=== PATIENT | female | born 1940 | race Caucasian/White ===

== ENCOUNTER → 2022-02-25 13:50 | Outpatient (BNVA) | payer MEDICARE, SELFPAY | PROVIDERS: PCP Internal Medicine; Visit Provider Nurse Practitioner Family | DX: R29.898 Other symptoms and signs involving the musculoskeletal system (principal); S49.92XA Unspecified injury of left shoulder and upper arm, initial encounter | CPT/HCPCS: 99202 ==

== ENCOUNTER → 2022-05-03 11:41 | Outpatient (BNVA) | payer MEDICARE, SELFPAY | PROVIDERS: PCP Internal Medicine; Visit Provider Nurse Practitioner Family | DX: S49.92XD Unspecified injury of left shoulder and upper arm, subsequent encounter (principal); R29.898 Other symptoms and signs involving the musculoskeletal system | CPT/HCPCS: 99212 ==

== ENCOUNTER 2022-05-11 11:00 | Outpatient (RCR) | payer MEDICARE, SELFPAY ==
--- NOTE | 2022-05-11 11:51 | MHC.OT.DC ---
[address] [phone] F: [phone] Occupational Therapy Discharge Note Provider: Petra Mast Diagnosis: Brachial Plexus Injury, RTC Injury Date of Evaluation: 04/20/22 Date of Discharge: 05/11/22 Treatments to Date: 4 Discharge Status: Independent with HEP Discharge Summary: Olya was evaluationed for OT services s/p fall w/ brachial plexus and rotator cuff injury to left arm. She has had very limited return since injury this past Spring and cont's to have absent sensation in left arm (digits to mid upper-arm) and flaccidity of muscles distal to shoulder. We have fabriucated restin wrist orthosis for joint protection and she has good carry over w/ wear. BONDED STRAND OPERATOR assists 5 days a week w/ ranging arm at home. She is still very limited MP flex in digits and shoulder ext rot, flex and abd. Cont'd pain in axilla region and anterior shoulder. Less tenderness and trigger points noted in upper back. She has good awareness of dayana-dressing techniques and good support system at home, at this time we will discharge from OT services and she will cont w/ PT. Electronically Signed By: Lyiah Perez OTR/Megha CHT Reviewed/agree with student documentation: Therapist: Please Sign and return to therapist, thank you for your referral.
== END 2022-05-11 11:52 | disposition home or self-care (01) ==
LOC: HO.OT 11:00
PROVIDERS: PCP Internal Medicine; Visit Provider Nurse Practitioner Family
DX: R29.898 Other symptoms and signs involving the musculoskeletal system (principal); S49.92XA Unspecified injury of left shoulder and upper arm, initial encounter
CPT/HCPCS: 29125; 97110; 97140; 97167; 97760

== ENCOUNTER 2022-06-17 11:20 | Outpatient (REF) | payer MEDICARE, SELFPAY ==
--- NOTE | 2022-06-17 09:30 | EMG_ITS ---
Left median and ulnar motor and sensory studies were performed. Left radial sensory study was performed. Left medial and lateral antecubital brachial sensory studies were performed, and for comparison, right ulnar motor study was performed. Needle examination was performed of the paraspinal and limb muscles. IMPRESSION: This study was suggestive of severe left brachial plexopathy. upper extremity, which is better explained based upon brachial plexopathy. Etiology of the lesion is unclear in both. MD CAROLINA Joaquin/MERLYN / [id number]
== END 2022-06-17 11:21 | disposition home or self-care (01) ==
LOC: HO.NEURO 11:20
PROVIDERS: Visit Provider Nurse Practitioner Family
DX: R29.898 Other symptoms and signs involving the musculoskeletal system (principal)
CPT/HCPCS: 95886; 95909

== ENCOUNTER 2022-07-21 11:00 | Outpatient (RCR) | payer MEDICARE, SELFPAY ==
--- NOTE | 2022-04-05 17:29 | MHC.PT.EP ---
[facility] [place] Office [place] Office [place] Office [address] Renee Wells [address] [phone] F: [phone] F: [phone] F: [phone] F: [phone] Physical Therapy Plan of Care Date of Evaluation: Date of Surgery: Diagnosis: Unspecifiied injury of L shoulder and upper arm (MD note includes Profound L UE weakness, pain ? L brachial plexus injury s/p h/o fall with L shoulder injury and rehab in 10/2021. Assessment: Patient is 81 y.o female who comes with daughter since she is poor historian and daughter reports cognitive impairments. She has very complex medical history and causation of L UE pain and limitations is still unknown, neurologist report includes Left arm weakness: s/p fall w/ a long lie period, rhabdomyolysis. With MRI (10/30): complete teres major tear, high-grade injury/partial tear of long head of triceps tendon, partial tear of latissimus dorsi, supraspinatus and infraspinatus tendinopathy, extensive muscular edema throughout deltoid and rotator cuff musculature. She is in need of repeat nerve conduction study to determine location of injury as it is questional for brachial plexus. She has no motor or sensory from below deltoid and muscle atrophy. She is able to tolerate passive stretching of shoulder, adhesive capsulitis present due to increased time of immobiliy of the shoulder. Patient and daughter are educated on passive stretching of shoulder to maintain what is left in shoulder and to make possible PROM gains. Recommend OT for splinting of hand to prevent contracture. Recommend PT 1-2x/week for manual therapy to shoulder, HEP to include PROM by family or caregiver. Frequency and Duration: The patient will be seen 1-2x/week for 4 weeks Short Term Goals: Only oysterman goals established due to complexity and severity of symptoms. Systems Planner Goals: 4 weeks Patient family is able to demonstrate ability to passively stretch patient L UE joints to prevent contractures. Patient is able to demonstrate HEP to preserve function of muscles in shoulder girdle. Patient is able to tolerate increased PROM stretching in L shoulder flexion 120 degrees to be able to allow easier don/doffing clothes. Treatment Plan: Modalities to reduce pain, spasms and effusion. Manual therapy to restore motion and function. Therapeutic exercise to improve strength and flexibility. Neuromuscular re-education for posture and balance. Therapeutic activities to return to functional activities of daily living. Electronically signed by: Roopa Kang PT, DPT Please sign and return to therapist. Thank you for your referral.
--- NOTE | 2022-07-21 13:29 | MHC.PT.DC ---
[facility] [place] Office [place] Office [place] Office [address] Renee Wells [address] [phone] F: [phone] F: [phone] F: [phone] F: [phone] Physical Therapy Discharge Report Diagnosis: Unspecifiied injury of L shoulder and upper arm (MD note includes Profound L UE weakness, pain ? L brachial plexus injury s/p h/o fall with L shoulder injury and rehab in 10/2021. Date of Surgery: DOI (10/2021) Date of Evaluation: 04/05/22 Date of Discharge: Treatments to Date: 20 Cancellations to Date: No Shows to Date: Discharge Status: Improved Function Independent with HEP Discharge Summary: Olya has made improvements in L shoulder PROM and can utilize R UE to help with AAROM of L shoulder to make it more functional for her with assist to bathe and get dressed. She does have INSULATOR APPRENTICE come in in the evening to help, who also does stretch her L UE. I spoke with pt and pt's son about discontinuing PT at this time. I feel she has plateaued and no further skilled PT is required as she can manage the progress she has made at home. Printed hand out was given to them outlining her AAROM exercises to do herself as well as instruction to get out of sling and perform deep breathing for L rib/chest expansion. And in handout shows PROM of L hand and shoulder. Discussed safety as well in winter weather with attending outpatient as they have expressed concern about this before, that checking back in in the spring for OP PT may be a safer option or discuss home PT with PCP for winter time. They agree to this plan. Electronically signed by: Roopa Kang, PT, DPT Please sign and return to therapist. Thank you for your referral.
== END 2022-07-21 13:30 | disposition home or self-care (01) ==
LOC: HO.PT 11:00
PROVIDERS: PCP Internal Medicine; Visit Provider Nurse Practitioner Family
DX: R29.898 Other symptoms and signs involving the musculoskeletal system (principal); S49.92XA Unspecified injury of left shoulder and upper arm, initial encounter
CPT/HCPCS: 97110; 97140; 97163; 97530

== ENCOUNTER → 2022-07-29 08:55 | Outpatient (BNVA) | payer MEDICARE, SELFPAY | PROVIDERS: PCP Internal Medicine; Visit Provider Nurse Practitioner Family | DX: S14.3XXD Injury of brachial plexus, subsequent encounter (principal); S49.92XD Unspecified injury of left shoulder and upper arm, subsequent encounter; R29.898 Other symptoms and signs involving the musculoskeletal system; F03.90 Unspecified dementia, unspecified severity, without behavioral disturbance, psychotic disturbance, mood disturbance, and anxiety | CPT/HCPCS: 99212 ==

== ENCOUNTER 2023-02-02 12:59 | Outpatient (AMB) | payer MEDICARE, SELFPAY ==
[2023-02-02 13:01] VITALS: PULSE 55; O2SAT 93; BMI 21.6
--- NOTE | 2023-02-02 13:01 | A.OFFVIS_ITS ---
Intake Vital Signs 02/02/23 13:01 Height 5 ft 2 in Weight 118 lb 6 oz BMI 21.6 Position Sitting Pulse 55 Pulse Source Pulse Oximeter Pulse Oximetry (%) 93 Oxygen Delivery Method Nasal Cannula Oxygen Flow Rate 1 Intake Visit Reasons: follow up- [facility] Intake Note: Pt presents as a f/u. no change, we need to find out about therapy or whatever she is going to do. Therapy didn't work. Lane Attendant Required: No Allergies No Known Allergies Allergy (Verified 02/02/23 13:05) Medication List - Last Reconciled 02/02/23 by CINTHYA Gresham albuterol sulfate mg inhalation albuterol sulfate 90 mcg/actuation 0 mcg inhalation atorvastatin 10 mg PO DAILY denosumab (Prolia) mg subcut diclofenac sodium 3% 1 appl topical BID 90 days fluticasone propion-salmeterol 250-50 mcg/dose (Wixela Inhub) 1 ea inhalation BID fluticasone propion-salmeterol 500-50 mcg/dose (Wixela Inhub) 1 ea inhalation BID isosorbide mononitrate ER 15 mg PO DAILY lidocaine 5% 1 appl topical QID PRN 90 days tiotropium bromide 2.5 mcg/actuation (Spiriva Respimat) 2 puffs inhalation DAILY HPI HPI Comments History of Present Illness Details 82-yr-old female presents for f/u visit, accompanied by her dtr. Pt denies any significant interval medical changes. Pt and dtr reports pt has had no improvement in LUE weakness, pain, and sensation. Pt continues to wear the left arm brace and compression sleeve- however LUE swelling has resolved. Pt feels better when wearing the sleeve. Dtr mentions taht the wrist splint Pt states the hand is always cold. She has more difficulty moving the left shoulder and elbow. The fingers are starting to stay bent. Pt was discharged from therapy. Dtr helps the patient do the exercises- but this is limited. They did try the Diclofenac 3% and lidocaine- but this did not help. Tylenol 1000mg TID takes the edge off. Dtr is interested in finding a natural tx option- such as CBD cream. [facility] Medical History Adrenal adenoma Aortic valve stenosis Bursitis of hip COPD (chronic obstructive pulmonary disease) Coronary atherosclerosis HTN (hypertension) Low back pain On home oxygen therapy Osteoporosis Prediabetes Pulmonary emphysema Rectocele Spinal stenosis Vaginal wall prolapse Surgical History H/O mastectomy H/O: hysterectomy Family History Mother Breast cancer Social History (Updated 02/02/23 @ 13:07 by Alison Pool CMA) Alcohol intake: current Alcohol intake frequency: holidays/special occasions only Patient Tobacco Use Status: Former Tobacco user Review of Systems Const All systems reviewed & are unremarkable except as noted in HPI and below Physical Exam Vital Signs: Last Vital Signs Pulse 55 02/02/23 13:01 Pulse Ox 93 02/02/23 13:01 Oxygen Delivery Method Nasal Cannula 02/02/23 13:01 Oxygen Flow Rate 1 02/02/23 13:01 BMI result Body Mass Index 21.6 Const General: cooperative and no acute distress HEENT Head: Yes normocephalic Resp Effort & Inspection: normal respiratory effort and able to speak in complete sentences Neuro Other: A&O, responds appropriately w/ some STM lapses Marked decreased left shoulder ROM. Left elbow- unable to fully extend, pt feel most comfortable with left elbow at 90degrees Left fingers mid-flexion LUE ROM limited by pt discomfort LUE- marked weakness, cool to the touch, loss of sensation Slow to stand, unsteady gait at times. General: CN's II-XI intact bilaterally Psych Appearance: grossly normal Mental Status: mental status grossly normal Speech and movement: Normal speech and movement present Affect: normal affect Attitude: cooperative Thought process: Normal thought process present Thought content: Normal thought content present Insight: Good insight present (Psych) Judgement: Good judgement present (Psych) Assessment & Plan Assessment & Plan (1) Left arm weakness: Comment: s/p fall w/ a long lie period, rhabdomyolysis Code(s): R29.898 - Other symptoms and signs involving the musculoskeletal system (2) Injury of left shoulder: Comment: MRI (10/30): complete teres major tear, high-grade injury/partial tear of long head of triceps tendon, partial tear of latissimus dorsi, supraspinatus and infraspinatus tendinopathy, extensive muscular edema throughout deltoid and rotator cuff musculature. Code(s): S49.92XA - Unspecified injury of left shoulder and upper arm, initial encounter (3) Brachial plexus injury, left: Code(s): S14.3XXA - Injury of brachial plexus, initial encounter Plan Discussed that pt's LUE pain level may be impeding her ability to fully do her PT/OT exercises. May continue Tylenol 1000mg tid prn. Offered to trial oral analgesic- TCA, tramadol- pt/dtr decline at this time d/t concern for worsening dementia s/s. They may try an OTC natural topical analgesic- such as a capsaicin oint or even the CBD cream. Dtr wondering if pt needs to continue to wear LUE compression sleeve- the LUE swelling has resolved however this makes pt feel better- she may continue to use. Will request pt have f/u w/ [facility]- ? if pt's worsening LUE ROM, contracture would be amendable to injection tx's. Consider referral back to PT/OT after ortho eval. f/u in 4 months or sooner prn Orders: Referrals Orthopedics Referral R29.898 - Other symptoms and signs involving the musculoskeletal system, S14.3XXA - Injury of brachial plexus, initial encounter, S49.92XA - Unspecified injury of left shoulder and upper arm, initial encounter Coding Level of Care Code Est Pt Level 4 (75554) Diagnoses Left arm weakness R29.898 Injury of left shoulder S49.92XA Brachial plexus injury, left S14.3XXA
== END 2023-02-02 13:54 | disposition home or self-care (01) ==
PROVIDERS: Visit Provider Nurse Practitioner Family
DX: R29.898 Other symptoms and signs involving the musculoskeletal system (principal); S49.92XA Unspecified injury of left shoulder and upper arm, initial encounter; S14.3XXA Injury of brachial plexus, initial encounter
CPT/HCPCS: 99214

== ENCOUNTER → 2023-02-02 12:59 | Outpatient (BNVA) | payer MEDICARE, SELFPAY | PROVIDERS: Visit Provider Nurse Practitioner Family | DX: R29.898 Other symptoms and signs involving the musculoskeletal system (principal); S49.92XD Unspecified injury of left shoulder and upper arm, subsequent encounter; S14.3XXD Injury of brachial plexus, subsequent encounter | CPT/HCPCS: 99212 ==

== ENCOUNTER 2023-06-08 11:06 | Outpatient (AMB) | payer MEDICARE, SELFPAY ==
--- NOTE | 2023-06-08 11:10 | A.OFFVIS_ITS ---
Intake Vital Signs 06/08/23 11:28 Height 5 ft 2 in Weight 113 lb BMI 20.7 BP 110/72 Blood Pressure Location Rt brachial Position Sitting Respiration 16 Pulse 69 Pulse Source Pulse Oximeter Pulse Oximetry (%) 90 L Oxygen Delivery Method Nasal Cannula Intake Visit Reasons: 4 f/u [facility] - LVM Intake Note: Pt presents to the office for 4 month follow up. Pt is here with her daughter, Jodee. They report no changes to symptoms since last visit. Copy Writer Required: No Allergies No Known Allergies Allergy (Verified 02/02/23 13:05) Medication List - Last Reconciled 06/08/23 by CINTHYA Gresham albuterol sulfate mg inhalation albuterol sulfate 90 mcg/actuation 0 mcg inhalation atorvastatin 10 mg PO DAILY cholecalciferol (vitamin D3) (Dialyvite Vitamin D) 125 mcg PO DAILY denosumab (Prolia) mg subcut fluticasone propion-salmeterol 250-50 mcg/dose (Wixela Inhub) 1 ea inhalation BID isosorbide mononitrate ER 15 mg PO DAILY multivitamin 1 tab PO DAILY tiotropium bromide 2.5 mcg/actuation (Spiriva Respimat) 2 puffs inhalation DAILY HPI HPI Comments History of Present Illness Details 82-yr-old female presents for f/u visit, accompanied by her dtr Pt denies any significant interval medical changes, other than a mild cold a few wks ago. Pt continues to have profound LUE weakness and numbness. She has seen [facility]- was note thought to be a surgical candidate. She was referred to PT/OT which has been helpful- pt is doing the exercises at home as well. She does still have LUE discomfort- uses Tylenol prn w/ some effect. Also CBD cream- helps some. They are wary to try anything that would cause sedation ro cognitive s/s. Memory is stable- dtr is giving her Dahiana tincture which she feels is helping. [facility] Medical History Adrenal adenoma Aortic valve stenosis Bursitis of hip COPD (chronic obstructive pulmonary disease) Coronary atherosclerosis HTN (hypertension) Low back pain On home oxygen therapy Osteoporosis Prediabetes Pulmonary emphysema Rectocele Spinal stenosis Vaginal wall prolapse Surgical History H/O: hysterectomy H/O mastectomy Family History Mother Breast cancer Social History Alcohol intake: current Alcohol intake frequency: holidays/special occasions only Patient Tobacco Use Status: Former Tobacco user Review of Systems Const All systems reviewed & are unremarkable except as noted in HPI and below Physical Exam Vital Signs: Last Vital Signs Pulse 69 06/08/23 11:28 Resp 16 06/08/23 11:28 BP 110/72 06/08/23 11:28 Pulse Ox 90 L 06/08/23 11:28 Oxygen Delivery Method Nasal Cannula 06/08/23 11:28 BMI result Body Mass Index 20.7 Const General: cooperative and no acute distress HEENT Head: Yes normocephalic Resp Effort & Inspection: normal respiratory effort and able to speak in complete sentences Neuro Other: A&O, responds appropriately Marked decreased left shoulder ROM. Left fingers mid-flexion contractions LUE ROM limited by pt discomfort LUE- marked weakness, cool to the touch, loss of sensation Slow to stand, steadier gait today General: CN's II-XI intact bilaterally Psych Appearance: grossly normal Affect: normal affect Attitude: cooperative Thought process: Normal thought process present Assessment & Plan Assessment & Plan (1) Brachial plexus injury, left: Code(s): S14.3XXA - Injury of brachial plexus, initial encounter (2) Left arm weakness: Comment: s/p fall w/ a long lie period, rhabdomyolysis Code(s): R29.898 - Other symptoms and signs involving the musculoskeletal system (3) Injury of left shoulder: Comment: MRI (10/30): complete teres major tear, high-grade injury/partial tear of long head of triceps tendon, partial tear of latissimus dorsi, supraspinatus and infraspinatus tendinopathy, extensive muscular edema throughout deltoid and rotator cuff musculature. Code(s): S49.92XA - Unspecified injury of left shoulder and upper arm, initial encounter (4) Dementia: Code(s): F03.90 - Unspecified dementia, unspecified severity, without behavioral disturbance, psychotic disturbance, mood disturbance, and anxiety Plan Trial Alpha-lipoic acid 600mg qd May continue Tylenol 1000mg tid prn. May continue the CBD cream. Continue PT/OT exercises. F/u w/ [facility] as scheduled. Dtr is wondering about hand surgeon consult- I'm not sure there would be any benefit at this point, dtr will talk w/ PCP. f/u in 4 months or sooner prn Medications: New alpha lipoic acid 600 mg PO DAILY 90 days 90 caps 1RF S14.3XXA - Injury of brachial plexus, initial encounter Coding Level of Care Code Est Pt Level 3 (81854) Diagnoses Brachial plexus injury, left S14.3XXA Left arm weakness R29.898 Injury of left shoulder S49.92XA Dementia F03.90
[2023-06-08 11:28] VITALS: BP 110/72; PULSE 69; RESP 16; O2SAT 90; BMI 20.7
== END 2023-06-08 12:08 | disposition home or self-care (01) ==
PROVIDERS: PCP Internal Medicine; Visit Provider Nurse Practitioner Family
DX: S14.3XXA Injury of brachial plexus, initial encounter (principal); R29.898 Other symptoms and signs involving the musculoskeletal system; S49.92XA Unspecified injury of left shoulder and upper arm, initial encounter; F03.90 Unspecified dementia, unspecified severity, without behavioral disturbance, psychotic disturbance, mood disturbance, and anxiety
CPT/HCPCS: 99213

== ENCOUNTER → 2023-06-08 11:06 | Outpatient (BNVA) | payer MEDICARE, SELFPAY | PROVIDERS: PCP Internal Medicine; Visit Provider Nurse Practitioner Family | DX: S14.3XXD Injury of brachial plexus, subsequent encounter (principal); S49.92XD Unspecified injury of left shoulder and upper arm, subsequent encounter; R29.898 Other symptoms and signs involving the musculoskeletal system; F03.90 Unspecified dementia, unspecified severity, without behavioral disturbance, psychotic disturbance, mood disturbance, and anxiety | CPT/HCPCS: 99212 ==

== ENCOUNTER 2023-11-28 13:14 | Outpatient (AMB) | payer MEDICARE, SELFPAY ==
--- NOTE | 2023-11-28 13:20 | A.OFFVIS_ITS ---
Vital Signs 11/28/23 13:23 Height 5 ft 1 in Weight 118 lb BMI 22.3 Pulse 65 Pulse Source Pulse Oximeter Pulse Oximetry (%) 94 Oxygen Delivery Method Room Air Comment 4 Liters Oxygen([employer]) Intake Visit Reasons: Pulmonary Nodules Fan Mail Clerk Required: No Allergies No Known Allergies Allergy (Verified 11/28/23 13:20) HPI Comments Details: The patient is here for pulmonary evaluation. The patient is an 83 year woman with a known history of advanced emphysema COPD and chronic respiratory failure. She does get oxygen from [employer]. She does have a portable oxygen concentrator that she uses the 4 L pulse with activity. She also sleeps with the oxygen at home at 4 L. the family is wondering if she is using too much oxygen. Will plan to do an overnight oximetry to assess that. In addition to that she does use Wixela and Spiriva with good effect. She still has a cough chest congestion. She has not interested in any additional medications at this time. Because of the chronic bronchitis component I do believe that a Acapella valve will be helpful for chest PT. I did instruct her how to use it and will request 1 from a [employer] company, [employer]. The patient also has multiple pulmonary nodules. She has been followed mostly by a grocery caddy in the area for many years. She has had CT scans every 6 months. Some of the nodules have been increasing in size. Back in June 2023 she had a PET scan at [facility] and then subsequently repeat CT scan at the [facility]. I did personally review the CT scan. Appears that some of the nodules are spiculated appearance and some of them are larger in size measuring little more than a cm in size. Although she does have extensive emphysema and she does require significant oxygen so therefore any kind of biopsy for the patient will be very high risk and may not be worthwhile. We did talk about following the nodules closely and we can also consider stereotactic radiation if needed. But even that will be difficult. The patient also has a very limited movement of her left shoulder because of a torn rotator coughing that also limits and positioning for any kind of procedures. Apparently she did try to get a biopsy of the pulmonary nodules in the past but she could not position herself because of significant pain from the left shoulder. [facility] Medical History (Updated 11/28/23 @ 22:44 by Turner Hartman MD) Chronic respiratory failure Pulmonary nodules Vaginal wall prolapse Spinal stenosis Rectocele Pulmonary emphysema Prediabetes Osteoporosis On home oxygen therapy Low back pain HTN (hypertension) Coronary atherosclerosis COPD (chronic obstructive pulmonary disease) Bursitis of hip Aortic valve stenosis Adrenal adenoma Surgical History H/O: hysterectomy H/O mastectomy Family History Mother Breast cancer Social History Alcohol intake: current Alcohol intake frequency: holidays/special occasions only Patient Tobacco Use Status: Former Tobacco user Review of Systems Const Denies fever(s) ENT Reports nasal congestion Card Denies chest pain and Reports dyspnea on exertion Resp Reports chest congestion, Reports cough, Reports dyspnea on exertion and Reports wheezing GI Reports no additional complaints Musc Reports myalgias, Reports arthralgias, Reports joint swelling, Reports limited range of motion and Reports muscle weakness Skin/Breast Denies rash Aller/Immun Reports wheezing Physical Exam Vital Signs: Last Vital Signs Pulse 65 11/28/23 13:23 Pulse Ox 94 11/28/23 13:23 Oxygen Delivery Method Room Air 11/28/23 13:23 BMI result Body Mass Index 22.3 Const General: comfortable and alert Nutritional Appearance: thin HEENT Head: Yes normocephalic Neck Neck: Yes supple Chest Chest palpation & inspection: normal inspection of the chest Resp Effort & Inspection: normal respiratory effort and prolonged expiratory phase Auscultation: diminished lung sounds Cardio Heart sounds: S1 normal heart sound present, S2 normal heart sound present and Murmur heart sound present GI Palpation (GI): Soft to palpation Skin General skin exam: no rashes or lesions noted Extrem General: Yes no clubbing, cyanosis or edema Results Reviewed Results Reviewed: personally reviewed Ct chest 09/2023 with multiple pulmonary nodules. Some appear to be irregular and spiculated Assessment & Plan Assessment & Plan (1) COPD (chronic obstructive pulmonary disease): Code(s): J44.9 - Chronic obstructive pulmonary disease, unspecified Category: Medical Qualifiers: COPD type: emphysema Emphysema type: centrilobular Qualified Code(s): J43.2 - Centrilobular emphysema (2) Pulmonary nodules: Code(s): R91.8 - Other nonspecific abnormal finding of lung field Category: Medical (3) Chronic respiratory failure: Code(s): J96.10 - Chronic respiratory failure, unspecified whether with hypoxia or hypercapnia Category: Medical Qualifiers: Respiratory failure complication: hypoxia Qualified Code(s): J96.11 - Chronic respiratory failure with hypoxia Plan continue Wixela continue Spiriva ROSA MARIA as needed conitnue oxygen supplementation: 2L/pulse at rest, 4L/pulse with activity, 4L/min with sleep Overnight oximetry on 4L repeat CT chest in March 2024 Does have advanced emphysema and would not recommend any invasive or semiinvasive diagnostic interventions for these nodules. We will discuss max cheema in the Fall after her repeat CT chest. Orders: Orders CT chest wo IV con 03/27/24 R91.8 - Other nonspecific abnormal finding of lung field Coding Level of Care Code New Pt Level 5 (26029) Diagnoses Centrilobular emphysema J43.2 COPD type: emphysema Emphysema type: centrilobular Pulmonary nodules R91.8 Chronic respiratory failure with hypoxia J96.11 Respiratory failure complication: hypoxia Time Spent (min) 60
[2023-11-28 13:23] VITALS: PULSE 65; O2SAT 94; BMI 22.3
== END 2023-11-28 13:53 | disposition home or self-care (01) ==
PROVIDERS: PCP Nurse Practitioner Gerontology; Referring Provider Internal Medicine; Visit Provider Hospitalist
DX: J43.2 Centrilobular emphysema (principal); R91.8 Other nonspecific abnormal finding of lung field; J96.11 Chronic respiratory failure with hypoxia
CPT/HCPCS: 99205

== ENCOUNTER → 2023-11-28 13:14 | Outpatient (BNVA) | payer MEDICARE, SELFPAY | PROVIDERS: PCP Nurse Practitioner Gerontology; Referring Provider Internal Medicine; Visit Provider Hospitalist | DX: J43.2 Centrilobular emphysema (principal); J96.11 Chronic respiratory failure with hypoxia; R91.8 Other nonspecific abnormal finding of lung field | CPT/HCPCS: 99202 ==

== ENCOUNTER 2024-02-15 11:16 | Outpatient (AMB) | payer MEDICARE, SELFPAY ==
--- NOTE | 2024-02-15 11:30 | A.OFFVIS_ITS ---
Vital Signs 02/15/24 11:31 Height 5 ft 1 in Weight 118 lb BMI 22.3 Pulse 70 Pulse Source Pulse Oximeter Pulse Oximetry (%) 86 L Intake Visit Reasons: 4 mnts f/u [place]-LVM Intake Note: Patient presents for 4 month muscoskeletal. patient has had no changes since last visit. Allergies No Known Allergies Allergy (Verified 02/15/24 11:36) Medication List - Last Reconciled 02/15/24 by CINTHYA Gresham albuterol sulfate mg inhalation albuterol sulfate 90 mcg/actuation 2 inhalations inhalation Q6H PRN 90 days atorvastatin 10 mg PO DAILY cholecalciferol (vitamin D3) (Dialyvite Vitamin D) 125 mcg PO DAILY denosumab (Prolia) mg subcut fluticasone propion-salmeterol 250-50 mcg/dose (Wixela Inhub) 1 ea inhalation Q12H 90 days isosorbide mononitrate ER 15 mg PO DAILY multivitamin 1 tab PO DAILY nebulizers As directed Oxygen Home Use As directed tiotropium bromide 2.5 mcg/actuation (Spiriva Respimat) 2 puffs inhalation DAILY HPI Comments Details: 83-yr-old female presents for f/u visit for LUE weakness/neuralgia s/p fall w/ long lie period in October 2021. Pt is accompanied by her dtr. Pt denies any significant interval medical changes. Pt states she continues to have LUE weakness- there has been no improvement in strength. They state ortho did not have any surgical options to offer. She continues to have LUE neuralgic pain. States Tylenol takes the edge off. They have tried a number of OTC topical tx's, lidocaine, CBD, etc- none of which has helped. They are still hesitant to re-try prescription oral medication d/t risk for worsening pt's cognition. Pt is still forgetful. 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 [facility] Medical History (Updated 11/28/23 @ 22:44 by Turner Hartman MD) Chronic respiratory failure Pulmonary nodules Vaginal wall prolapse Spinal stenosis Rectocele Pulmonary emphysema Prediabetes Osteoporosis On home oxygen therapy Low back pain HTN (hypertension) Coronary atherosclerosis COPD (chronic obstructive pulmonary disease) Bursitis of hip Aortic valve stenosis Adrenal adenoma Surgical History H/O: hysterectomy H/O mastectomy Family History Mother Breast cancer Social History Alcohol intake: current Alcohol intake frequency: holidays/special occasions only Patient Tobacco Use Status: Former Tobacco user Physical Exam Vital Signs: Last Vital Signs Pulse 70 02/15/24 11:31 Pulse Ox 86 L 02/15/24 11:31 BMI result Body Mass Index 22.3 Const General: cooperative and no acute distress Resp Effort & Inspection: normal respiratory effort and able to speak in complete sentences Neuro Other: A&O w/ mild STM lapses Profound LUE weakness. Sitting upright in w/c. Cranial nerves: Yes CN's II-XII intact bilaterally Psych Appearance: grossly normal Affect: normal affect Assessment & Plan Assessment & Plan (1) Left arm weakness: Comment: s/p fall w/ a long lie period, rhabdomyolysis Code(s): R29.898 - Other symptoms and signs involving the musculoskeletal system Category: Medical (2) Injury of left shoulder: Comment: MRI (10/30): complete teres major tear, high-grade injury/partial tear of long head of triceps tendon, partial tear of latissimus dorsi, supraspinatus and infraspinatus tendinopathy, extensive muscular edema throughout deltoid and rotator cuff musculature. Code(s): S49.92XA - Unspecified injury of left shoulder and upper arm, initial encounter Category: Medical (3) Brachial plexus injury, left: Code(s): S14.3XXA - Injury of brachial plexus, initial encounter Category: Medical Plan Continue prn Tylenol. May try to adjunct w/ OTC Ibuprofen 400mg q 4-6 hrs or Naproxen 440mg q 12 hrs. Will request pain management 's input- ? if pt would benefit from nerve block or alternate pain modality tx. f/u in 6 months or sooner prn. Orders: Referrals Pain Management Referral R29.898 - Other symptoms and signs involving the musculoskeletal system, S14.3XXA - Injury of brachial plexus, initial encounter, S49.92XA - Unspecified injury of left shoulder and upper arm, initial encounter Coding Level of Care Code Est Pt Level 3 (63608) Diagnoses Left arm weakness R29.898 Injury of left shoulder S49.92XA Brachial plexus injury, left S14.3XXA
[2024-02-15 11:31] VITALS: PULSE 70; O2SAT 86; BMI 22.3
== END 2024-02-15 12:20 | disposition home or self-care (01) ==
PROVIDERS: PCP Internal Medicine; Visit Provider Nurse Practitioner Family
DX: R29.898 Other symptoms and signs involving the musculoskeletal system (principal); S49.92XA Unspecified injury of left shoulder and upper arm, initial encounter; S14.3XXA Injury of brachial plexus, initial encounter
CPT/HCPCS: 99213

== ENCOUNTER → 2024-02-15 11:16 | Outpatient (BNVA) | payer MEDICARE, SELFPAY | PROVIDERS: PCP Internal Medicine; Visit Provider Nurse Practitioner Family | DX: S49.92XD Unspecified injury of left shoulder and upper arm, subsequent encounter (principal); S14.3XXD Injury of brachial plexus, subsequent encounter; R29.898 Other symptoms and signs involving the musculoskeletal system | CPT/HCPCS: 99212 ==

== ENCOUNTER 2024-05-07 11:04 | Outpatient (AMB) | payer MEDICARE, SELFPAY ==
--- NOTE | 2024-05-07 11:26 | A.OFFVIS_ITS ---
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 She does get oxygen from [employer]. She does have a portable oxygen concentrator that she uses the 4 L pulse with activity. She also sleeps with the oxygen at home at 4 L. the family is wondering if she is using too much oxygen. Will plan to do an overnight oximetry to assess that. In addition to that she does use Wixela and Spiriva with good effect. She still has a cough chest congestion. She has not interested in any additional medications at this time. Because of the chronic bronchitis component I do believe that a Acapella valve will be helpful for chest PT. I did instruct her how to use it and will request 1 from a [employer], [employer]. The patient also has multiple pulmonary nodules. She has been followed mostly by a drill press operator numerical control in the area for many years. She has had CT scans every 6 months. Some of the nodules have been increasing in size. Back in June 2023 she had a PET scan at [facility] and then subsequently repeat CT scan at the [facility]. I did personally review the CT scan. Appears that some of the nodules are spiculated appearance and some of them are larger in size measuring little more than a cm in size. Although she does have extensive emphysema and she does require significant oxygen so therefore any kind of biopsy for the patient will be very high risk and may not be worthwhile. We did talk about following the nodules closely and we can also consider stereotactic radiation if needed. But even that will be difficult. The patient also has a very limited movement of her left shoulder because of a torn rotator coughing that also limits and positioning for any kind of procedures. Apparently she did try to get a biopsy of the pulmonary nodules in the past but she could not position herself because of significant pain from the left shoulder. 05/07/2024 the patient is here for a pulmonary follow-up visit. The patient overall has been doing better. She does complain of a cough productive in nature with yellow sputum. She has been noticing this for the last few weeks. She does not feel sick like she has not had any fevers. Although the daughter has noticed that his energy level has been a little lower. She continues with the inhalers as prescribed. She did get the Acapella valve and she is using it several times a day and that is helping with the expectorations. We did follow- up with a CT scan of the chest that she had at [facility] demonstrating interval worsening of airspace disease in the right upper lobe right middle lobe and right lower lobe area appears to be more consistent with infection. In addition to that she has other pulmonary nodules that are being followed. His hard to know if this airspace disease is related to malignant process or if it is infectious. I do believe it is more infectious at this time. The patient is with her daughter they are concerned about unnecessary antibiotics. I did recommend a course of doxycycline. While we were able to do is get a sputum culture and I will send to the laboratory right now. Hopefully we can get a speciation of an organism. If we can at least identify an organism within joy ated more effectively. If she worsens then she will call and we can place her on empiric antibiotics specially if the sputum is not helpful. Will plan to repeat an x-ray with the next visit in 3-4 months. [facility] Medical History (Updated 05/07/24 @ 11:54 by Turner Hartman MD) Bronchopneumonia Chronic respiratory failure Pulmonary nodules Vaginal wall prolapse Spinal stenosis Rectocele Pulmonary emphysema Prediabetes Osteoporosis On home oxygen therapy Low back pain HTN (hypertension) Coronary atherosclerosis COPD (chronic obstructive pulmonary disease) Bursitis of hip Aortic valve stenosis Adrenal adenoma Surgical History H/O: hysterectomy H/O mastectomy Family History Mother Breast cancer Social History Alcohol intake: current Alcohol intake frequency: holidays/special occasions only Patient Tobacco Use Status: Former Tobacco user Review of Systems Const Denies fever(s) ENT Reports nasal congestion Card Denies chest pain and Reports dyspnea on exertion Resp Reports change in phlegm color, Reports chest congestion, Reports cough, Reports dyspnea on exertion and Reports wheezing GI Reports no additional complaints Musc Reports myalgias, Reports arthralgias, Reports joint swelling, Reports limited range of motion and Reports muscle weakness Skin/Breast Denies rash Aller/Immun Reports wheezing Physical Exam Vital Signs: Last Vital Signs Pulse 60 05/07/24 11:28 BP 110/60 05/07/24 11:28 Pulse Ox 91 L 05/07/24 11:28 Oxygen Delivery Method Room Air 05/07/24 11:28 BMI result Body Mass Index 22.3 Const General: comfortable and alert Nutritional Appearance: thin HEENT Head: Yes normocephalic Neck Neck: Yes supple Chest Chest palpation & inspection: normal inspection of the chest Resp Effort & Inspection: normal respiratory effort and Actively coughing Quality: productive Auscultation: diminished lung sounds Cardio Heart sounds: S1 normal heart sound present, S2 normal heart sound present and Murmur heart sound present GI Palpation (GI): Soft to palpation Skin General skin exam: no rashes or lesions noted Extrem General: Yes no clubbing, cyanosis or edema Assessment & Plan Assessment & Plan (1) COPD (chronic obstructive pulmonary disease): Code(s): J44.9 - Chronic obstructive pulmonary disease, unspecified Category: Medical Qualifiers: COPD type: emphysema Emphysema type: centrilobular Qualified Code(s): J43.2 - Centrilobular emphysema (2) Pulmonary nodules: Code(s): R91.8 - Other nonspecific abnormal finding of lung field Category: Medical (3) Chronic respiratory failure: Code(s): J96.10 - Chronic respiratory failure, unspecified whether with hypoxia or hypercapnia Category: Medical Qualifiers: Respiratory failure complication: hypoxia Qualified Code(s): J96.11 - Chronic respiratory failure with hypoxia (4) Bronchopneumonia: Code(s): J18.0 - Bronchopneumonia, unspecified organism Category: Medical Plan continue Wixela continue Spiriva ROSA MARIA as needed conitnue oxygen supplementation: 2L/pulse at rest, 4L/pulse with activity, 4L/min with sleep Overnight oximetry on 4L sputum culture CXR F/U 3-4 months Orders: Orders Sputum Cult + Gram stain Today J18.0 - Bronchopneumonia, unspecified organism Acid-fast Culture + Smear Today J18.0 - Bronchopneumonia, unspecified organism XR chest 2V Today J18.0 - Bronchopneumonia, unspecified organism Coding Level of Care Code Est Pt Level 4 (98260) Complex EM visit Add On G2211 Diagnoses Centrilobular emphysema J43.2 COPD type: emphysema Emphysema type: centrilobular Pulmonary nodules R91.8 Chronic respiratory failure with hypoxia J96.11 Respiratory failure complication: hypoxia Bronchopneumonia J18.0 Time Spent (min) 18
[2024-05-07 11:28] VITALS: BP 110/60; PULSE 60; O2SAT 91; BMI 22.3
== END 2024-05-07 11:55 | disposition home or self-care (01) ==
PROVIDERS: PCP Nurse Practitioner Gerontology; Visit Provider Hospitalist
DX: J43.2 Centrilobular emphysema (principal); R91.8 Other nonspecific abnormal finding of lung field; J96.11 Chronic respiratory failure with hypoxia; J18.0 Bronchopneumonia, unspecified organism
CPT/HCPCS: 99214; G2211

== ENCOUNTER 2024-05-07 11:04 | Outpatient (REF) | payer MEDICARE, SELFPAY | END 2024-05-07 11:05 | disposition home or self-care (01) | LOC: HO.LNP 11:04 | PROVIDERS: PCP Nurse Practitioner Gerontology; Visit Provider Hospitalist | DX: J18.0 Bronchopneumonia, unspecified organism (principal); J43.2 Centrilobular emphysema; J96.11 Chronic respiratory failure with hypoxia; R91.8 Other nonspecific abnormal finding of lung field; Z99.81 Dependence on supplemental oxygen | CPT/HCPCS: 87070; 87077; 87116; 87185; 87186; 87205; 87206; 99212 ==

== ENCOUNTER 2024-05-30 10:50 | Outpatient (REF) | payer MEDICARE, SELFPAY | END 2024-05-30 10:51 | disposition home or self-care (01) | LOC: HO.XRAY 10:50 | PROVIDERS: PCP Nurse Practitioner Gerontology; Visit Provider Hospitalist | DX: J18.0 Bronchopneumonia, unspecified organism (principal) | CPT/HCPCS: 71046 ==

== ENCOUNTER 2024-09-03 10:48 | Outpatient (AMB) | payer MEDICARE, SELFPAY ==
--- NOTE | 2024-09-03 10:49 | MHC.OFFVIS ---
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 Pt is accompanied by her dtr. PMH is notable for adrenal adenoma, aortic valve stenosis, HTN, CAD, COPD/emphysema/pulmonary nodules, O2 dependence, dementia, h/o breast and uterine cancer, osteoporosis, rectocele and vaginal wall prolapse. Pt denies any significant interval medical changes. Patient continues to have profound LUE weakness- there has been no improvement in strength. She continues to have LUE neuralgic pain from her shoulder through her hand. States the pain is constant. The pain is not worse in any particular part of the LUE. Daughter states the left hand finger contracture are better than before, as she and pt's PLATE EMBOSSER consistently help pt w/ hand ROM exercises. Continues to take Tylenol t.i.d. scheduled, which takes the edge off the pain. Patient has tried a number of OTC topical tx's, lidocaine, CBD, etc- none of which has helped. Patient and daughter are still hesitant to re-try prescription oral medication d/t risk for worsening pt's cognition. She previously had ortho follow-up, however daughter states they not have any surgical options to offer. Daughter states they never received a call to make the pain management appointment. Cognition is stable- prone to forgetfulness, needs assist with ADLs and IADLs. 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 [facility] Medical History (Updated 09/03/24 @ 12:42 by CINTHYA Gresham) Bronchopneumonia Chronic respiratory failure Pulmonary nodules Vaginal wall prolapse Spinal stenosis Rectocele Pulmonary emphysema Prediabetes Osteoporosis On home oxygen therapy Low back pain HTN (hypertension) Coronary atherosclerosis COPD (chronic obstructive pulmonary disease) Bursitis of hip Aortic valve stenosis Adrenal adenoma Surgical History H/O: hysterectomy H/O mastectomy Family History Mother Breast cancer Social History Alcohol intake: current Alcohol intake frequency: holidays/special occasions only Patient Tobacco Use Status: Former Tobacco user Physical Exam Vital Signs: Last Vital Signs Pulse 59 09/03/24 10:53 BP 100/70 09/03/24 10:53 Pulse Ox 90 L 09/03/24 10:53 Oxygen Delivery Method Room Air 09/03/24 10:53 Const General: cooperative and no acute distress Resp Effort & Inspection: normal respiratory effort and able to speak in complete sentences Neuro Other: A&O w/ mild STM lapses LUE supported in soft arm sling. Left 2nd-5th fingers with mild contraction- unable to actively fully extend fingers. Profound LUE weakness. LUE- absence of perception of light and sharp sensation. LUE CMS+. Sitting upright in w/c. Cranial nerves: Yes CN's II-XII intact bilaterally Psych Appearance: grossly normal Affect: normal affect Assessment & Plan Assessment & Plan (1) Left arm weakness: Comment: Secondary to left brachial plexus injury s/p fall w/ a long lie period, rhabdomyolysis Code(s): R29.898 - Other symptoms and signs involving the musculoskeletal system Category: Medical (2) Injury of left shoulder: Comment: MRI (10/30): complete teres major tear, high-grade injury/partial tear of long head of triceps tendon, partial tear of latissimus dorsi, supraspinatus and infraspinatus tendinopathy, extensive muscular edema throughout deltoid and rotator cuff musculature. Code(s): S49.92XA - Unspecified injury of left shoulder and upper arm, initial encounter Category: Medical (3) Brachial plexus injury, left: Code(s): S14.3XXA - Injury of brachial plexus, initial encounter Category: Medical Plan Continue prn Tylenol. May try to adjunct w/ OTC Ibuprofen 400mg q 4-6 hrs or Naproxen 440mg q 12 hrs. Will follow-up on request pain management consult- ? if pt would benefit from nerve block or alternate pain modality tx. Discussed referring patient back to orthopedics or possibly physiatry, for LUE hand/finger splint. However, they are not interested in doing this at this time. Advised to continue LUE hand/ROM exercises. Try placing a rolled face cloth in the left hand at bedtime- to reduce risk for further hand contracture. f/u in 6 months or sooner prn. Coding Level of Care Code Est Pt Level 4 (03376) Diagnoses Left arm weakness R29.898 Injury of left shoulder S49.92XA Brachial plexus injury, left S14.3XXA
[2024-09-03 10:53] VITALS: BP 100/70; PULSE 59; O2SAT 90
--- OUTSIDE RECORDS SUMMARY | 2024-09-03 12:14 | XMS_ITS ---
Author Organization [facility] Address [address] [place] [address] Care Team Providers Care Job Placement Counselor Name Role Phone Nancy Rene Primary Care Provider Bharathi Samson Unavailable [phone] Allergies Allergen (clinical drug ingredient) Drug/Non Drug Allergy documented on EMR Reaction Allergy Type Onset Date Status Seasonale Unknown Drug Allergy Active REASON FOR VISIT At Risk Footcare, Painful Nail(s) aggravated by shoes and causing difficulty standing/walking., Wart(s) Medications Medication SIG (Take, Route, Frequency, Duration) Notes Start Date End Date Status Lidocaine 5 % 1 application to affected area as needed Externally to effected areas on feet Three times a day for 30 days 04/04/2019 Not-Taking Albuterol Not-Taking aspirin baby Not-Tc ing Fish Oil 1000 MG 1 capsule Orally Once a day Not-Taking Memantine HCl Not-Ta serene Wixela Inhub Active Vitamin D3 Not-Takin g Calcium w/ mag, zinc Not-Tc ing ProAir HFA 108 (90 Base) MCG/ACT Inhalation for 25 Not-Takin g Vitamin K2-Vitamin D3 Not-Taking Tylenol Active Vitamin C Active Vitamin D 1000 UNIT 1 tablet Orally Once a day Active oxygen Active Spiriva HandiHaler 18 MCG Inhalation for 90 Active Isosorbide Mononitrate Active Multivitamin Active Albuterol Sulfate Ac tive Atorvastatin Calcium Active Fluticasone Propionate Active Albuterol Sulfate 108 (90 Base) MCG/ACT 1 puff as needed Inhalation Three times a day Active Estradiol Estrogen Ring Active Prolia Active Calcium & Magnesium Carbonates Active Advair Diskus 250-50 MCG/DOSE Inhalation for 90 Active Lisinopril-hydroCHLOR Othiazide 20-12.5 MG Oral for 90 Not-Tc ing levoFLOXacin Active Vagifem 10 MCG Vaginal for 84 Not-Taking Alendronate Sodium N ot-Taking Cephalexin 500 MG 1 capsule Orally every 8 hrs for 10 day(s) Not-Taking Social History Tobacco Use: Social History Observation Description Date Details (start date - stop date) Current Smoker NA - NA Tobacco Use/Smoking Question Answer Notes Are you a: current smoker How many cigarettes a day do you smoke? 5 or les s Are you interested in quitting? Thinking about q uitting Alcohol Screen Question Answer Notes Did you have a drink contain ing alcohol in the past year? Yes How often did you have a dri nk containing alcohol in the past year? Monthly or less (1 point) Points 1 Interpretation Negative Tobacco use other than smoking: Question Answer Notes Are you an other tobacco user? No Vital Signs Height 5 ft 1 in in 06/25/2024 Weight 115 lbs 06/25/2024 BMI 21.73 kg/m2 06/25/2024 Blood pressure systolic 117 mm Hg 06/25/20 24 Blood pressure diastolic 60 mm Hg 024 Procedures Procedure Date Ordered Date Performed Result Body Sit e 33609-DPRCOVY NAIL, 6 OR MORE 06/25/2024 N/A 14168-Cutf Destruction, 1-14 06/25/2024 N/A 83610-OZDU SKIN LESIONS, OVER 4 06/25/2024 N/A Encounters Encounter Location Date Provider Diagnosis [facility] [address] [address] 06/25/2024 Bharathi Craft Atherosclerosis of [place] artery of both lower extremities, with unspecified presence of clinical manifestation I70.203 ; Tinea unguium B35.1 ; Pain in right toe(s) M79.674 ; Pain in left toe(s) M79.675 ; Plantar wart B07.0 and Pain in right foot M79.671 Assessments Encounter Date Diagnosis (ICD Code) Assessment Notes Treatment Notes Treatment Clinical Notes Section Notes 06/25/2024 Atherosclerosis of [place] artery of both lower extremities, with unspecified presence of clinical manifestation (ICD-10 - I70.203) 06/25/2024 Tinea unguium (ICD-10 - B35.1) 06/25/2024 Pain in right toe(s) (ICD-10 - M79.674) 06/25/2024 Pain in left toe(s) (ICD-10 - M79.675) 06/25/2024 Plantar wart (ICD-10 - B07.0) 06/25/2024 Pain in right foot (ICD-10 - M79.671) Plan Of Treatment Pending Test Test Name Order Date 98434-MTUPIAO NAIL, 6 OR MORE 06/25/2024 89356-Eiwx Destruction, 1-14 06/25/2024 45130-IRHO SKIN LESIONS, OVER 4 06/25/20 24 Next Appt Details Follow Up: prn, Reason: Provider Name:Bharathi Craft , 09/24/2024 02:30:00 PM, [facility], [place] [address], [place], [address], Provider Name:Bharathi Craft , 11/05/2024 03:00:00 PM, [facility], [address] [facility], [place], [address], Procedure Notes * Category Sub-Category Detail Notes Wart Treatment Procedure Verruca, as desc ribed in exam, were debrided to pin-point bleeding margins with sterile 15 surgical blade, silver nitrate chemocautery applied, recomm. immune-boosting meds such as zinc, recomm. follow up with topical chemosurgical agents, Pt defers any other forms of tx - 53885 Debride Nail 6-10 Nail debridement Due to the cl inical pathology outlined in the exam findings, performance of this nail treatment is medically necessary as its management by an unskilled/untrained nonprofessional would put this patients foot and overall health at risk. Therefore, debridement to affected nail(s), as described in exam ( T1, T2, T3, T4, T6, T7, T8, T9), was performed exclusively by the physician of record to reduce/remove overall nail length, girth, thickness, subungual debris, and necrotic tissue, by manual and/or electrical means through the use of a nail nipper and/or dremel-type plate grinder, to a more viable healthy nail plate or bed tissue 6-10 nails in total. Silver nitrate was used for any petechial bleeding as necessary. Definitive antifungal treatment options, both pharmaceutical and surgical, have been reviewed and discussed with the patient. The patient solely prefers the use of intermittent/as needed professional debridement services for their nail condition and understands the need for additional periodic treatments to maintain effectiveness in symptomatic relief - 75241 Keratoma Treatment Parring or Cutting o f Benign Hyperkeratotic Lesion(s) (-57) More than 4 Lesions - Due to the at risk nature of the patients medical condition as documented in the exam findings, performance of this keratoderma treatment is medically necessary as its management by an unskilled/untrained nonprofessional would put this patients foot and overall health at risk. Therefore, the benign hyperkeratotic lesions, ( 5) in total, locations as stated and described in the exam ( SUB MTH (s), 5, Left , SUB MTH (s), 1, Right , SUB MTH (s), 4, Right ,Plantar, Heel(s), B/L), were pared, and/or cut utilizing a sterile 15 blade, tissue nippers, and/or power dremel instrumentation by the physician of record - 23476, Q8 Progress Notes * FARHAT Olya ADOB:1940 (83 yo F)Acc No.[id number]:06/25/2024 Progress Notes Patient:?Olya HULL Provider:?Bharathi Craft DPM :1940???Age:83 Y???Sex:Female D ate:06/25/2024 Address:[address] [place], [place] [id number] Pcp:Nancy Rene Subjective: * Chief Complaints: * ???At Risk FootcarePainful N ail(s) aggravated by shoes and causing difficulty standing/walking.Wart(s) * HPI: ???At Risk footcare:?Pt States Last PCP Visit:?Date?06/25/2024 * ROS:?General/Constitutional:?Nausea?denies.?Vomiting?denies.?Hunger Thirst?denies.?Loss appetite?denies.?Chills?denies.?Fatigue?denies.?Fever?denies.?Night Sweats?denies.?Unexplained weight loss?denies.?Ophthalmologic:?Blurred vision?denies.?Red eye?denies.?HEENTM:?Dentures?denies - partial plates.?Dizziness?denies.?Glasses/contacts?admits.?Retinopathy?denies.?Blurred/d ouble vision?denies.?TMJ?denies.?Discharge/drainage?denies.?Implants?denies.?Hard of hearing ?denies.?Difficulty chewing/swallowing/speaking?denies.?Nose bleeds?denies.?Sore mouth?denies.?Swollen glands?denies.?Respiratory:?On Oxygen?admits.?Pneumonia/pleurisy?denies.?Bronchitis?denies.?Emphysema?admits.?C oughing?denies.?Cough blood?denies.?Shortness of breath?denies.?Wheezing?denies.?Cardiovascular:?Pacemaker?denies.?MVP?denies.?WPW?denies.?CHF?denies.?Heart attack?denies.?Septal defect?denies.?Rapid beat?denies.?Chest pain ?denies.?Atrial Fib.?denies.?Murmur/Palpitations?denies.?Gastrointestinal:?Hemorrhoids?denies.?Stomach/Abdominal pain?denies.?Dark blood stool?denies.?Irritable bowel ?denies.?Constipation?denies.?Diarrhea?denies.?Vomiting?denies.?Hematology:?Swelling?denies.?Bruising?denies.?Bleeding problem?denies.?Genitourinary:?Blood urine?denies.?Frequent/Painfu/urination/bladder control?denies.?Kidney stones?denies.?Infection (UTI)?denies.?Nephropathy?denies.?Musculoskeletal:?Hammertoes?denies.?Bunions?denies.?Scoliosis/kyphosis?denies.?Muscle cramps / walking?denies.?Generalized aches and pains?denies.?Weakness?denies.?Integ.:?Alexandra?denies.?Scars?denies.?Corns/calluses?admits.?Ingrown nails?admits.?Painful nails?admits.?Rashes?denies.?Neurologic:?Difficulty sleeping?denies.?Bipolar?denies.?Brain disorder?denies.?Balance trouble?admits.?Confusion?denies.?Fainting/blackouts?denies.?Headache?denies.?Tr emors?denies.? * Medical History:? * Surgical History:?bilateral mastectomy 2007arm ear surgery * Hospitalization/Major Diagno stic Procedure:?Nuclear Stress Test- Carotid artery 03/24Nursing home- fell, hurt left arm 12/2021 * Family History:?Mother: dece ased, diagnosed with Other malignant neoplasm of unspecified site, Family history of arthritis.?Father: , diagnosed with Unspecified cerebral artery occlusion with cerebral infarction.?Daughter(s): alive.?Son(s): alive.?Spouse: .?Siblings: diagnosed with Diabetic - NIDDM.?2 brother(s) . 1 son(s) , 2 daughter(s) . .? 1 brother and 1 alive. * Social History:?Tobacco Use:?Tobacco Use/Smoking?Are you a:?current smoker ?How many cigarettes a day do you smoke??5 or less ?Are you interested in quitting??Thinking about quitting ?Tobacco use other than smoking?Are you an other tobacco user??No ???Drugs/Alcohol:?Drugs?Have you used drugs other than those for medical reasons in the past 12 months??No ?Alcohol Screen?Did you have a drink containing alcohol in the past year??Yes ?How often did you have a drink containing alcohol in the past year??Monthly or less (1 point) ?Points?1 ?Interpretation?Negative ???Miscellaneous:?Caffeine: yes, frequency:. ?Children: yes. ?Exercise: no. ?Marital status: . ?Occupation: Retired. * Medications:?TakinglevoFLOXa yu Estradiol , Notes to Pharmacist: Estrogen RingProlia Calcium & Magnesium Carbonates Advair Diskus 250-50 MCG/DOSE Aerosol Powder Breath Activated Inhalation Albuterol Sulfate 108 (90 Base) MCG/ACT Aerosol Powder Breath Activated 1 puff as needed Inhalation Three times a day Albuterol Sulfate Atorvastatin Calcium Fluticasone Propionate Isosorbide Mononitrate Multivitamin oxygen Spiriva HandiHaler 18 MCG Capsule Inhalation Tylenol Vitamin C Vitamin D 1000 UNIT Tablet 1 tablet Orally Once a day Wixela Inhub Taking levoFLOXacin Taking Estradiol , Notes to Pharmacist: Estrogen RingTaking Prolia Taking Calcium & Magnesium Carbonates Taking Advair Diskus 250-50 MCG/DOSE Aerosol Powder Breath Activated Inhalation Taking Albuterol Sulfate 108 (90 Base) MCG/ACT Aerosol Powder Breath Activated 1 puff as needed Inhalation Three times a day Taking Albuterol Sulfate Taking Atorvastatin Calcium Taking Fluticasone Propionate Taking Isosorbide Mononitrate Taking Multivitamin Taking oxygen Taking Spiriva HandiHaler 18 MCG Capsule Inhalation Taking Tylenol Taking Vitamin C Taking Vitamin D 1000 UNIT Tablet 1 tablet Orally Once a day Taking Wixela Inhub Not-Taking/PRNCalcium , Notes to Pharmacist: w/ mag, zincProAir HFA 108 (90 Base) MCG/ACT Aerosol Solution Inhalation Vitamin K2-Vitamin D3 Vitamin D3 aspirin baby Fish Oil 1000 MG Capsule 1 capsule Orally Once a day Memantine HCl Lidocaine 5 % Ointment 1 application to affected area as needed Externally to effected areas on feet Three times a day Albuterol Lisinopril-hydroCHLOROthiazide 20-12.5 MG Tablet Oral Vagifem 10 MCG Tablet Vaginal Alendronate Sodium Cephalexin 500 MG Capsule 1 capsule Orally every 8 hrs Medication List reviewed and reconciled with the patientNot-Taking/PRN Calcium , Notes to Pharmacist: w/ mag, zincNot-Taking/PRN ProAir HFA 108 (90 Base) MCG/ACT Aerosol Solution Inhalation Not-Taking/PRN Vitamin K2-Vitamin D3 Not-Taking/PRN Vitamin D3 Not-Taking/PRN aspirin baby Not-Taking/PRN Fish Oil 1000 MG Capsule 1 capsule Orally Once a day Not-Taking/PRN Memantine HCl Not-Taking/PRN Lidocaine 5 % Ointment 1 application to affected area as needed Externally to effected areas on feet Three times a day Not-Taking/PRN Albuterol Not-Taking/PRN Lisinopril- hydroCHLOROthiazide 20-12.5 MG Tablet Oral Not-Taking/PRN Vagifem 10 MCG Tablet Vaginal Not- Taking/PRN Alendronate Sodium Not-Taking/PRN Cephalexin 500 MG Capsule 1 capsule Orally every 8 hrs Medication List reviewed and reconciled with the patient * Allergies:?Seasonaleyes[Lauri rgies Verified] Objective: * Vitals:?Ht: 5 ft 1 in, Wt: 1 15, BMI: 21.73, Shoe size: 8.5, BP: 117/60 mm Hg, Wt-k.16 kg. * Examination: ???Vascular: ?DP PULSES (B):? 0/4, B/L.?PT PULSES (B):? 0/4, B/L.?CAPILLARY FILL TIME:? delayed, all digits, B/L.?TROPHIC CONDITION-TEXTURE/ELASTICITY/TURGOR/HAIR GROWTH (B):? decreased, fragile, thin, shiny skin, with sparse to absent hair growth, B/L.?TEMPERTURE GRADIENT (C):? decreased, cool to cool, proximal to distal, B/L.?PIGMENTATION:? rubrous, B/L.?EDEMA (C):? absent, B/L.?CLAUDICATION (C):?denies, B/L.?REST PAIN:?denies, B/L.?Nails: ?NAILS are:?Elongated, overgrown, dystrophic, lytic, greater than 3mm thick, discolored and friable with crumbly malodorous subungual debris, with pain on palpation, T1, T2, T3, T4, T6, T7, T8, T9, all other nails not described with characteristics as possessing mycosis are elongated, overgrown, and dystrophic.?Dermatologic: ?SKIN FINDINGS:? Skin exam reveals Keratotic lesion(s) located at, SUB MTH (s), 5, Left , SUB MTH (s), 1, Right , SUB MTH (s), 4, Right ,Plantar, Heel(s), B/L .?VERRUCA:?STILL reveals a Single , multi-loculated , mosaic-patterned, round, raised, flat-topped, petechial bleeding papule(s), with cauliflower appearance and interruption of skin lines, pain to lateral compression, and size estimated at 5mm diameter , plantar Forefoot , RIGHT.? Assessment: * Assessment: 1.?Tinea unguium - B35.1???2 .?Atherosclerosis of [place] artery of both lower extremities, with unspecified presence of clinical manifestation - I70.203 (Primary)???3.?Pain in right toe(s) - M79.674???4.?Pain in left toe(s) - M79.675 ??5.?Plantar wart - B07.0???Specify :RIGHT???6.?Pain in right foot - M79.671??? Plan: * Treatment: 2.?Tinea unguium?Procedure: 44513-FGEJJAS NAIL, 6 OR MORE 3.?Plantar wart?Procedure: 71466-Xgpl Destruction, 1-14 * Procedures:?Debride Nail 6-10:?Nail debridement?Due to the clinical pathology outlined in the exam findings, performance of this nail treatment is medically necessary as its management by an unskilled/untrained nonprofessional would put this patients foot and overall health at risk. Therefore, debridement to affected nail(s), as described in exam (?T1,?T2,?T3,?T4,?T6,?T7,?T8,?T9), was performed exclusively by the physician of record to reduce/remove overall nail length, girth, thickness, subungual debris, and necrotic tissue, by manual and/or electrical means through the use of a nail nipper and/or dremel-type plate grinder, to a more viable healthy nail plate or bed tissue 6- 10 nails in total. Silver nitrate was used for any petechial bleeding as necessary. Definitive antifungal treatment options, both pharmaceutical and surgical, have been reviewed and discussed with the patient. The patient solely prefers the use of intermittent/as needed professional debridement services for their nail condition and understands the need for additional periodic treatments to maintain effectiveness in symptomatic relief - 26329.?Keratoma Treatment:?Parring or Cutting of Benign Hyperkeratotic Lesion(s)?(-57) More than 4 Lesions - Due to the at risk nature of the patients medical condition as documented in the exam findings, performance of this keratoderma treatment is medically necessary as its management by an unskilled/untrained nonprofessional would put this patients foot and overall health at risk. Therefore, the benign hyperkeratotic lesions, ( 5) in total, locations as stated and described in the exam (?SUB MTH (s),?5,?Left?,?SUB MTH (s),?1,?Right?,?SUB MTH (s),?4,?Right?,Plantar,?Heel(s),?B/L), were pared, and/or cut utilizing a sterile 15 blade, tissue nippers, and/or power dremel instrumentation by the physician of record - 61672, Q8.?Wart Treatment:?Procedure?Verruca, as described in exam, were debrided to pin-point bleeding margins with sterile 15 surgical blade, silver nitrate chemocautery applied, recomm. immune-boosting meds such as zinc, recomm. follow up with topical chemosurgical agents, Pt defers any other forms of tx - 75062.? * Procedure Codes:?74401 DEBRI DE NAIL, 6 OR MORE, Modifiers: XS 09213 Wart Destruction, 1-14, Modifiers: XS 90923 TRIM SKIN LESIONS, OVER 4, Modifiers: XS , Q8 * Preventive Medicine:? ??Counseling:?Tobacco use:?Patient counseled on the dangers of smoking and urged to quit:?06/25/2024 * Follow Up:?prn * Images: * Sign off status: Completed true * Provider:?Bharathi Craft DPM Date:?2023 Generated for Douglas paredes/Arun/Wilfredo on:?09/03/2024 12:14 PM EST History and Physical Notes * HPI (History of Present Illness) Category Sub-Category Detail Notes Category Not es At Risk footcare Pt States Last PCP Visit: Date: 4 Examination Category Sub-Category Detail Notes Category Not es Dermatologic SKIN FINDINGS: Skin exam reveal s Keratotic lesion(s) located at, SUB MTH (s), 5, Left , SUB MTH (s), 1, Right , SUB MTH (s), 4, Right ,Plantar, Heel(s), B/L VERRUCA: STILL reveals a Sing le , multi-loculated , mosaic-patterned, round, raised, flat-topped, petechial bleeding papule(s), with cauliflower appearance and interruption of skin lines, pain to lateral compression, and size estimated at 5mm diameter , plantar Forefoot , RIGHT Vascular DP PULSES (B): 0/4, B/L PT PULSES (B): 0/4, B/L CAPILLARY FILL TIME: delayed, all digits , B/L TEMPERTURE GRADIENT (C): decreased, cool to cool, proximal to distal, B/L TROPHIC CONDITION-TEXTURE/ELASTICITY/TURGOR/HAIR GROWTH (B): decreased, fragile, thin, shiny skin, wi th sparse to absent hair growth, B/L EDEMA (C): absent, B/L CLAUDICATION (C): denies, B/L REST PAIN: denies, B/L PIGMENTATION: rubrous, B/L Nails NAILS are: Elongated, overg rown, dystrophic, lytic, greater than 3mm thick, discolored and friable with crumbly malodorous subungual debris, with pain on palpation, T1, T2, T3, T4, T6, T7, T8, T9, all other nails not described with characteristics as possessing mycosis are elongated, overgrown, and dystrophic
--- OUTSIDE RECORDS SUMMARY | 2024-09-03 12:14 | XMS_ITS | Clinical Summary ---
Author Organization [facility] [address] [place] [address] [place] [phone] Phone Care Team Providers Care Compliance Engineer Products Name Role Phone Summer Ramírez MD Primary Care Provider Allergies No known active allergies Medications acetaminophen (TYLENOL) 500 mg tablet Take 1 Tablet by mouth 3 times daily. Active albuterol 2.5 mg /3 mL (0.083 %) nebulizer solution Take 1 Vial by nebulization 3 times daily. Active albuterol HFA (PROAIR HFA ; PROVENTIL HFA ; VENTOLIN HFA) 90 mcg/actuation inhaler Inhale 2 puffs by mouth every 4 (four) hours if needed. Active ascorbic acid, vitamin C, 500 mg capsule Take 1 capsule by mouth 1 (one) time each day. Active atorvastatin (LIPITOR) 10 mg tablet Take 1 tablet (10 mg total) by mouth 1 (one) time each day. 4 Active cholecalciferol (VITAMIN D-3) 25 mcg (1,000 unit) tablet Take by mouth. Activ e FLUTICASONE PROPION-SALMETER OL INHL Inhale 500 Devices into the lungs daily. Active isosorbide mononitrate (IMDUR) 30 mg 24 hr tablet Take 0.5 tablets (15 mg total) by mouth 1 (one) time each day. 3 Active MULTIVITAMIN WITH MINERALS ORAL Take by mouth daily. Active Oxygen Therapy (O2) gas Inhale by mouth. via nasal canula Active tiotropium (SPIRIVA) 18 mcg per inhalation capsule Inhale 18 mcg into the lungs daily. Inhale the contents of one capsule through the Spiriva device every AM Active denosumab (Prolia) 60 mg/mL syringe syringeIndicatio ns:Age-related osteoporosis without current pathological fracture Inject 1mL (60mg total) under skin every 6 months 1 mL 1 5 Active Active Problems Problem Noted Date Diagnosed Date Atherosclerosis of both carotid arteries 023 Dizziness 11/12/2021 Overview (04/14/2024): Last Assessment & Plan: We did discuss her dizziness. This sounds like it is vertigo in nature. We did discuss that this could have been precipitated by her shoulder injury. We also discussed that her blood pressure is on the low side and this may be contributing to some of her dizziness as well. I have encouraged them to increase her fluid intake as well as increase her salt intake. Hopefully this will help to improve her blood pressure and help with her dizziness. If this does not improve her blood pressure then we may need to add midodrine. We did discuss that if her blood pressure is above 100 or so her dizziness should be better. Hyperlipidemia 11/12/2021 Overview (04/14/2024): Last Assessment & Plan: Patient's last LDL cholesterol 64. She will continue on atorvastatin 10 mg once a day as prescribed. Aortic stenosis 05/04/2021 Overview (04/14/2024): Last Assessment & Plan: Patient has history of aortic stenosis. She continues to deny any clinical symptoms of heart failure. Leg edema has improved with compression stockings. We did trial her on low-dose furosemide in the past which did not help with her leg edema. We will update an echocardiogram prior to her next office visit. I've asked the patient to call if they develop worsening symptoms of heart failure such as increased shortness of breath, new or worsening cough, increased swelling in the legs or ankles, or weight gain of more than 2 pounds in one day or 4 pounds in one week. Carotid artery disease 05/04/2021 Overview (04/14/2024): Last Assessment & Plan: Patient has history of carotid artery disease. She remains on aspirin and statin. Last carotid duplex completed 11/2022 showing less than 50% stenosis. Hypertension 05/04/2021 Overview (04/14/2024): Last Assessment & Plan: Blood pressure under excellent control with a reading today of 130/70. She will continue on her present dose of isosorbide. Age-related osteoporosis wit hout current pathological fracture 10/11/2017 Overview (04/14/2024): Prolia 10/11/17; 09/01/20 Encounters Date Type Department Care Team Description 08/08/2024 Telephone Endocrinology - [address] [phone] Avani Gill PA Prolia 06/08/2024 Telephone Endocrinology - [address] [phone] Latoya Escobar MA 06/04/2024 Telephone Endocrinology - [address] [phone] Latoya Escobar MA Prolia (Prolia) from Last 3 Months Surgical History Surgery Date Site/Laterality Comments HYSTERECTOMY PROCEDURE: HISTORICAL HYSTERECTOMY CATARACT EXTRACTION PROCEDURE: HISTORICAL CATARACT REMOVAL BACK SURGERY PROCEDURE: HISTORICAL BACK SURGERY MASTECTOMY Bilateral PROCEDURE: HISTORICAL MASTECTOMY; COMMENT: Simple APPENDECTOMY PROCEDURE: HISTORICAL APPENDECTOMY Medical History Medical History Date Comments Fall DX:Fall Rotator cuff injury DX:Rotator c uff injury; COMMENT: (supraspinatus, infraspinatus), Latissimus dorsi tear, Teres major tear Rhabdomyolysis DX:Rhabdomyolysi s Acute kidney injury (CMS/HCC) DX :Acute kidney injury (HCC) Adrenal adenoma DX:Adrenal adeno ma Atrophic vaginitis DX:Atrophic v aginitis Bursitis of hip DX:Bursitis of h ip Chronic obstructive lung disease (CMS/HCC) DX:Chronic obstructive lung disease (HCC) Dementia (CMS/HCC) DX:Dementia ( HCC) 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CMS/HCC) DX:D isorder of aorta (HCC) History of malignant neoplasm of breast DX:History of malignant neoplasm of breast History of malignant neoplas m of uterine body DX:History of malignant neop lasm of uterine body Low back pain DX:Low back pain Nicotine dependence DX:Nicotine dependence Osteoporosis DX:Osteoporosis Poor short term memory DX:Poor s hort term memory Prediabetes DX:Prediabetes Pulmonary emphysema (CMS/HCC) DX :Pulmonary emphysema (HCC) Pulmonary nodules DX:Pulmonary n odules Rectocele DX:Rectocele Spinal stenosis DX:Spinal stenos is Vaginal wall prolapse DX:Vaginal wall prolapse SONIA (acute kidney injury) (CMS/HCC) DX:SONIA (acute kidney injury) (HCC) Transaminitis DX:Transaminitis Leukocytosis DX:Leukocytosis Lactic acidosis DX:Lactic acidos is Hyperkalemia DX:Hyperkalemia Family History Medical History Relation Name Comments Coronary artery disease Brother 1 Coronary artery disease Brother 2 Hypertension Father Breast cancer Mother Hypertension Mother Relation Name Status Comments Brother 1 Brother 2 Alive Father Mother Social History Tobacco Use Types Packs/Day Years Used Date Smoking Tobacco: Some Days Smokeless Tobacco: Never Tobacco Cessation:Ready to Q uit: Not Asked; Counseling Given: Not Answered Alcohol Use Standard Drinks/Week Comments Not Currently 0 (1 standard drink = 0.6 oz pur e alcohol) Comments Unknown Sex and Gender Information Value Date Recorded Sex Assigned at Not on file Legal Sex Female 10:05 AM EST Gender Identity Not on file Sexual Orientation Not on file Obstetrics History Last Filed Vital Signs Vital Sign Reading Time Taken Comments Blood Pressure 136/74 05/24/2024 9:24 AM EST Pulse 56 05/24/2024 9:24 AM EST Temperature 36.4 ??C (97.6 ??F) 05/24/2024 9:24 AM ES T Respiratory Rate - - Oxygen Saturation 93% 10/31/2023 11:37 AM EDT on 3 L Inhaled Oxygen Concentration - - Weight 52.6 kg (116 lb) 05/24/2024 9:24 AM EST Height 154.9 cm (5' 1 ) 05/24/2024 9:24 AM EST Body Mass Index 21.92 05/24/2024 9:24 AM EST Plan of Treatment Upcoming Encounters Date Type Department Care Team (Late st Contact Info) Description 03/14/2025 1:00 PM EDT Office Visit [address] [phone] Avani Gill PA [address] [place] [address] Health Maintenance Due Date Last Done Comments DTaP,Tdap,and Td Vaccines (1 - Tdap) 1957 Zoster Vaccines (1 of 2) 1988 RSV Immunization Patients 60+ Years Old (1 - 1-dose 75+ series) 2013 Pneumococcal Vaccine: 50+ Years (2 of 2 - PPSV23) 05/28/2019 04/02/2019 Cholesterol Screening (Lipid Panel) 06/19/2022 Depression Screening 06/19/2022 Falls Risk Assessment 06/19/2022 Medicare Annual Wellness Visit 06/19/2022 Social Influencers of Health Screening 06/19/2022 Hypertension/CHF/CAD Annual BMP Blood Test 12/14/2023 12/13/2022 COVID-19 Vaccine ( season) 2024 09/18/2020, 08/21/2020 Influenza Vaccine (#1) 2024 , 04/24/2021, 03/10/2020, Additional history exists Osteoporosis Screening (Bone Density Screening) 08/30/2032 08/30/2022, 06/02/2020, 02/18/2020 HIB Vaccines Aged Out No longer eligi ble based on patient's age to complete this topic HPV Vaccines Aged Out No longer eligi ble based on patient's age to complete this topic Hepatitis A Vaccines Aged Out No long er eligible based on patient's age to complete this topic Hepatitis B Vaccines Aged Out No long er eligible based on patient's age to complete this topic IPV Vaccines Aged Out No longer eligi ble based on patient's age to complete this topic MMR Vaccines Aged Out No longer eligi ble based on patient's age to complete this topic Meningococcal ACWY Vaccine Aged Out N o longer eligible based on patient's age to complete this topic Meningococcal B Vacine Aged Out No lo nger eligible based on patient's age to complete this topic RSV Immunization Patients Under 20 months Aged Out No longer eligible based on patient's age to complete this topic Varicella Vaccines Aged Out No longer eligible based on patient's age to complete this topic Procedures Procedure Name Priority Date/Time Associated Diagnosis Comments ANNUAL BMP BLOOD TEST Routine 12/13/2022 DXA BONE DENSITY STUDY 1+ SITS AXIAL SKEL Routine 08/30/2022 11:20 AM EST Age-related osteoporosis without current pathological fracture from Last 3 Months or Most Recently Relevant to Health Maintenance Results * Annual BMP Blood Test (12/13/2022) Annual BMP Blood Test abstracted us Historical Provider HEALTH MAINTENANCE Final Result * DXA BONE DENSITY STUDY 1+ SITS AXIAL SKEL (08/30/2022 11:20 AM EST) Anatomical Region Laterality Modality Bone Densitometr y 12/17/2021 3:33 PM EDT Narrative 08/30/2022 12:22 PM EST BONE DENSITY (DEXA) ? Lumbar Spine T-score is 1.4. ?? (SD relative to 20-29 y/o adult) Z-score is 4.2. ??(SD relative to age matched peers) This is considered normal by WHO criteria. Left Hip T-score is -3.4. Z-score is -1.1. This is considered osteoporosis by WHO criteria. IMPRESSION: Osteoporosis by WHO criteria. The [facility] Department of Internal Medicine recommends using National Osteoporosis Foundation (NOF) guidelines in treatment decisions related to osteoporosis. NOF guidelines suggest considering treatment for postmenopausal women and men aged 50 or older presenting with the following: History of hip or vertebral fracture. T-score = -2.5 (DXA) at the femoral neck, total hip, or spine, after appropriate evaluation to exclude secondary causes. Low bone mass (T-score between -1.0 and -2.5 at the femoral neck or spine) AND a 10-year probability of a hip fracture = 3% OR a 10-year probability of a major osteoporosis-related fracture = 20% based on the [place]-adapted WHO algorithm Please note that all treatment decisions require clinical judgment and consideration of individual patient factors, including patient preferences, co-morbidities, previous drug use, risk factors not captured in the FRAX model (e.g., frailty, falls, vitamin D deficiency, increased bone turnover, interval significant decline in bone density) and possible under- or over-estimation of fracture risk by FRAX. Optional alternative screening schedule based on alla Jenkins., [facility] July 29, 2011 for patients with osteopenia (based on hip BMD T-score) is as follows: * ??advanced osteopenia (T scores -2.00 to -2.49), BMD testing every year * ??moderate osteopenia (T scores -1.50 to -1.99), BMD testing every 5 years mild osteopenia or normal BMD (T scores -1.50 and higher), BMD testing every 15 years Procedure Note Carmen Garcia MD - 08/15/2023 BONE DENSITY (DEXA) Lumbar Spine T-score is 1.4. (SD relative to 20-29 y/o adult) Z-score is 4.2. (SD relative to age matched peers) This is considered normal by WHO criteria. Left Hip T-score is -3.4. Z-score is -1.1. This is considered osteoporosis by WHO criteria. IMPRESSION: Osteoporosis by WHO criteria. The [facility] Department of Internal Medicine recommendsusing National Osteoporosis Foundation (NOF) guidelines in treatment decisions related toosteoporosis. NOF guidelines suggest considering treatment for postmenopausal women and menaged 50 or older presenting with the following: History of hip or vertebral fracture. T-score = -2.5 (DXA) at the femoral neck, total hip, or spine, afterappropriate evaluation to exclude secondary causes. Low bone mass (T-score between -1.0 and -2.5 at the femoral neck or spine)AND a 10-year probability of a hip fracture = 3% OR a 10-year probability of a majorosteoporosis-related fracture = 20% based on the [place]-adapted WHO algorithm Please note that all treatment decisions require clinical judgment andconsideration of individual patient factors, including patient preferences, co- morbidities,previous drug use, risk factors not captured in the FRAX model (e.g., frailty, falls, vitaminD deficiency, increased bone turnover, interval significant decline in bone density) andpossible under- or over-estimation of fracture risk by FRAX. Optional alternative screening schedule based on cynthia Jenkins al., NEJMJanuary 2011 for patients with osteopenia (based on hip BMD T-score) is as follows: * advanced osteopenia (T scores -2.00 to -2.49), BMD testing every year * moderate osteopenia (T scores -1.50 to -1.99), BMD testing every 5years mild osteopenia or normal BMD (T scores -1.50 and higher), BMD testingevery 15 years Avani HERRERA IM DXA PROCEDURES Final Result from Last 3 Months or Most Recently Relevant to Health Maintenance Insurance [employer] Care Teams Compliance Engineer Products Relationship Specialty Start Date End Date Summer Ramírez MD [address] [place] [address] PCP - General 03/01/24
--- OUTSIDE RECORDS SUMMARY | 2024-09-03 12:14 | XMS_ITS | Patient Health Record ---
Author Organization [facility] Address [address] [place] [address] Care Team Providers Care Developer Prover Upholstering Name Role Phone RAFAELA WARREN, LAURO Primary Care Provider KYRIE Mi Unavailable [phone] Allergies No Known Allergies Reason For Referral No Information Medications Medication SIG (Take, Route, Frequency, Duration) Notes Start Date End Date Status Wixela Inhub 250-50 MCG/ACT Inhalation for 90 Active Albuterol Sulfate (2.5 MG/3ML) 0.083% Inhalation for 40 Active Multivitamin - 1 tablet Orally Once a day for 30 day(s) 09/22/2022 Active Prolia 60 MG/ML Subcutaneous for 180 Active Spiriva HandiHaler 18MCG Inhalation daily for -3 0 12/05/2013 Active ProAir HFA 108 (90 BASE)MCG/ACT Inhalation for -3 12/05/2013 Active Atorvastatin Calcium 10 MG Oral for 90 Active Isosorbide Mononitrate ER 30 MG Oral for 90 Active Calcium Citrate Plus/Magnesium - as directed Orally Activ e Estradiol 2 MG 1 _insert Vaginal on ce for 3 months, then remove and insert a new ring. Repeat every 3 months for 365 days 05/28/2024 Active Advair Diskus 100-50MCG/DOSE Inhalation for -3 12/05/2013 Active Tylenol 500 MG/15ML as directed Orally Active Social History Tobacco Use: Social History Observation Description Date Details (start date - stop date) Current Smoker NA - NA Tobacco Use/Smoking Question Answer Notes Are you a current smoker How often do you smoke cigarettes? every day How many cigarettes a day do you smoke? 5 or les s Alcohol Screen (Audit-C) Question Answer Notes Did you have a drink contain ing alcohol in the past year? Yes How often did you have a dri nk containing alcohol in the past year? 2 to 4 times a month (2 points) How many drinks did you have on a typical day when you were drinking in the past year? 1 or 2 drinks (0 point) Points 2 Sexual History Question Answer Notes Had sex in the past 12 months (vaginal, oral, or anal)? No Tobacco use other than smoking: Question Answer Notes Are you an other tobacco user? No Problems Problem Type SNOMED Code ICD Code Onset Dates Problem Status W/U Status Risk Notes Problem Postmenopausal atrophic vaginitis (21420682) Postmenopausal atrophic vaginitis (N95.2) Active confirmed Problem Herniation of rectum into vagina (258763448) Rectocele (N81.6) Active confirmed Problem Age-related osteoporosis (772835357) Age-related osteoporosis without current pathological fracture (M81.0) Active confirmed Problem Essential hypertension (73373201) Essential (primary) hypertension (I10) Active confirmed Problem Chronic obstructive pulmonary disease (98237770) Chronic obstructive pulmonary disease, unspecified (J44.9) Active confirmed Problem Cystocele (487621121) Cystocele, unspecified (N81.10) Active confirmed Problem Prolapse of vaginal vault after hysterectomy (12122667) 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) Active confirmed Problem Personal history of primary malignant neoplasm of breast (250761789) Personal history of malignant neoplasm of breast (Z85.3) Active confirmed Vital Signs Temperature 98.0 degrees Fahrenheit 05/28/2024 Blood pressure diastolic 64 mm Hg 05/28/2024 Height 61.5 in 05/28/2024 Blood pressure systolic 114 mm Hg 05/28/2024 Weight 113 lbs 05/28/2024 BMI 21 kg/m2 05/28/2024 Encounters Encounter Location Date Provider Diagnosis [address] [place] [place] [address] 11/21/2023 KYRIE BALLARD Other specified noninflammatory disorders of vagina N89.8 and Prolapse of vaginal vault after hysterectomy N99.3 [address] [facility] [address] [place] [address] 02/27/2024 KYRIE BALLARD Prolapse of vaginal vault after hysterectomy N99.3 ; Rectocele N81.6 and Other specified noninflammatory disorders of vagina N89.8 [facility] [address] [place] [address] 05/28/2024 KYRIE BALLARD Prolapse of vaginal vault after hysterectomy N99.3 and Other specified noninflammatory disorders of vagina N89.8 Assessments Encounter Date Diagnosis (ICD Code) Assessment Notes Treatment Notes Treatment Clinical Notes Section Notes 11/21/2023 Other specified noninflammatory disorders of vagina (ICD-10 - N89.8) 11/21/2023 Prolapse of vaginal vault after hysterectomy (ICD-10 - N99.3) 02/27/2024 Prolapse of vaginal vault after hysterectomy (ICD-10 - N99.3) New Ring #4 pessary given today, as current pessary was weakened and malodorous 05/28/2024 Prolapse of vaginal vault after hysterectomy (ICD-10 - N99.3) 02/27/2024 Rectocele (ICD-10 - N81.6) 05/28/2024 Other specified noninflammatory disorders of vagina (ICD-10 - N89.8) 02/27/2024 Other specified noninflammatory disorders of vagina (ICD-10 - N89.8) Plan Of Treatment Pending Test Test Name Order Date Urinalysis 09/02/2020 Insurance Providers Payer Name Payer Address Payer Phone Subscriber Number Group Number Insured Name Patient Relationship to Insured Coverage Start Date Coverage End Date [employer] [address] [place] [address] [phone] [id number] MARYLOU DOUGHERTY Self - patient is the insured Medical (General) History Medical History History ICD Code Skin cancer right arm Essential (primary) hypertension I10 Cystocele, midline N81.11 Age-related osteoporosis without current pathological fracture M81.0 Chronic obstructive pulmonary disease, u nspecified J44.9 Postmenopausal atrophic vaginitis N95.2 Uterovaginal prolapse, unspecified N81.4 Female genital prolapse, unspecified N81 .9 Personal history of malignant neoplasm o f breast Z85.3 Surgical History Surgery Date(Month/Year) Hysterectomy age 29, uterine ca, ovaries remain Bilateral Mastectomies, initial dx in Hospitalization History Reason Date(Month/Year) See Surgical Hx
--- OUTSIDE RECORDS SUMMARY | 2024-09-03 12:14 | XMS_ITS ---
Author Organization [facility] Address [address] [place] [address] Care Team Providers Care Peanut Separator Name Role Phone RAFAELA WARREN, LAURO Primary Care Provider KYRIE Mi Unavailable [phone] Allergies No Known Allergies REASON FOR VISIT 3 month f/u Medications Medication SIG (Take, Route, Frequency, Duration) Notes Start Date End Date Status Spiriva HandiHaler 18MCG Inhalation daily for -3 0 12/05/2013 Active ProAir HFA 108 (90 BASE)MCG/ACT Inhalation for -3 12/05/2013 Active Advair Diskus 100-50MCG/DOSE Inhalation for -3 12/05/2013 Active Tylenol 500 MG/15ML as directed Orally Active Isosorbide Mononitrate ER 30 MG Oral for 90 Active Calcium Citrate Plus/Magnesium - as directed Orally Activ e Estring 2 MG as directed Vaginal every 3 months for 365 days 06/20/2023 Active Multivitamin - 1 tablet Orally Once a day for 30 day(s) 09/22/2022 Active Prolia 60 MG/ML Subcutaneous for 180 Active Wixela Inhub 250-50 MCG/ACT Inhalation for 90 Active Albuterol Sulfate (2.5 MG/3ML) 0.083% Inhalation for 40 Active Atorvastatin Calcium 10 MG Oral for 90 Active Social History Tobacco Use: Social History [...] an other tobacco user? 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 ; Rectocele N81.6 and Other specified noninflammatory disorders of vagina N89.8 Assessments Encounter Date Diagnosis (ICD Code) Assessment Notes Treatment Notes Treatment Clinical Notes Section Notes 02/27/2024 Prolapse of vaginal vault after hysterectomy (ICD-10 - N99.3) New Ring #4 pessary given today, as current pessary was weakened and malodorous 02/27/2024 Rectocele (ICD-10 - N81.6) 02/27/2024 Other specified noninflammatory disorders of vagina (ICD-10 - N89.8) Plan Of Treatment Treatment Notes Assessment Notes Prolapse of vaginal vault after hysterec nayla New Ring #4 pessary given today, as current pessary was weakened and malodorous Next Appt Details Follow Up: 3 Months, Reason: Pessary check Progress Notes * MARYLOU DOUGHERTYDOB:[birth year] (83 yo F)Acc No.[id number]:02/27/2024 Progress Note Patient:?MARYLOU DOUGHERTY Provider:?KYRIE BALLARD MD :1940???Age:83 Y???Sex:Female D ate:02/27/2024 Address:[address] [place] [address] [address], , [place], [place] Pcp:LAURO RUSSO NP Subjective: * Chief Complaints: * ???3 month f/u * HPI: ???SENIOR COMPLIANCE OFFICER (Procedures/Surgeries):?Pessary Insertion Follow-up:?In today for follow-up of Pessary insertion for:?vaginal prolapse ?Pessary type:?Ring ?Pessary size:?5 ?Satisfied with the way the Pessary is performing:?Yes ?Able to remove the Pessary on her own:?No ?Has urinary incontinence:?Yes ?Is the continence a problem for her??No ?Reports vaginal bleeding:?yes on a rare occasion ?Reports abnormal vaginal discharge:?no ?Pessary removed, cleaned, and replaced?yes ?Vagina irrigated with antiseptic:?yes, betadine ?New Pessary inserted and fitted:?No * ROS:?Women Only:?Patient denies?abnormal bleeding, vaginal discharge/itching, feeling of tissue protruding through vaginal opening.?Comments?admits rare vaginal spotting.?Genitourinary:?Patient denies?urinary incontinence.?Denies?Blood in urine.?Denies?Difficulty urinating.?Denies?Painful urination.? * Medical History:? 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 States vag paps WNL since.?LMP and menses?HENNY.?History of STD's:?None.?Hysterectomy:?age 29.?Colonoscopy?1 colonoscopy, declined further screening.?Bone Density:?osteoporosis followed by PCP. Last BMD 2019.?SENIOR COMPLIANCE OFFICER HISTORY MISC.?ring with support pessary 2.75mm for cystocele and rectoceleuterine ca age 29, s/p hyst, ovaries remainbilateral breast ca late , recurred on L 2006, then had bilateral mastectomy.? * OB History:?Total pregnancies?, vaginal.? * Surgical History:?Hysterecto my age 29, uterine ca, ovaries remain Bilateral Mastectomies, initial dx in * Hospitalization/Major Diagno stic Procedure:?See Surgical Hx * Family History:?Mother: dece ased, Breast Cancer.? Daughter: Breast Cancer age 50. * Social History:?Tobacco Use:?Tobacco Use/Smoking?Are you a?current smoker ?How often do you smoke cigarettes??every day ?How many cigarettes a day do you smoke??5 or less ?Tobacco use other than smoking?Are you an other tobacco user??No ???Sexual History:?Sexual History?Had sex in the past 12 months (vaginal, oral, or anal)??No ?Details of Sexual History?Are you sexually active??No ???Drugs/Alcohol:?Drugs?Have you used drugs other than those for medical reasons in the past 12 months??No ?Alcohol Screen (Audit-C)?Did you have a drink containing alcohol in the past year??Yes ?How often did you have a drink containing alcohol in the past year??2 to 4 times a month (2 points) ?How many drinks did you have on a typical day when you were drinking in the past year??1 or 2 drinks (0 point) ?Points?2 ???Miscellaneous:?Children: yes, 3. ?Home smoke detector use: yes. ?Marital status: single. ?Natural support system: yes. ?Occupation: Retired. ?Sexually active: no. * Medications:?TakingCalcium C itrate Plus/Magnesium - Tablet as directed Orally Tylenol 500 MG/15ML Liquid as directed Orally Advair Diskus 100-50MCG/DOSE Inhalation ProAir HFA 108 (90 BASE)MCG/ACT Inhalation Spiriva HandiHaler 18MCG Inhalation daily Isosorbide Mononitrate ER 30 MG Tablet Extended Release 24 Hour Oral Atorvastatin Calcium 10 MG Tablet Oral Albuterol Sulfate (2.5 MG/3ML) 0.083% Nebulization Solution Inhalation Wixela Inhub 250-50 MCG/ACT Aerosol Powder Breath Activated Inhalation Prolia 60 MG/ML Solution Prefilled Syringe Subcutaneous Multivitamin - Tablet 1 tablet Orally Once a day Estring 2 MG Ring as directed Vaginal every 3 months Medication List reviewed and reconciled with the patientTaking Calcium Citrate Plus/Magnesium - Tablet as directed Orally Taking Tylenol 500 MG/15ML Liquid as directed Orally Taking Advair Diskus 100-50MCG/DOSE Inhalation Taking ProAir HFA 108 (90 BASE)MCG/ACT Inhalation Taking Spiriva HandiHaler 18MCG Inhalation daily Taking Isosorbide Mononitrate ER 30 MG Tablet Extended Release 24 Hour Oral Taking Atorvastatin Calcium 10 MG Tablet Oral Taking Albuterol Sulfate (2.5 MG/3ML) 0.083% Nebulization Solution Inhalation Taking Wixela Inhub 250-50 MCG/ACT Aerosol Powder Breath Activated Inhalation Taking Prolia 60 MG/ML Solution Prefilled Syringe Subcutaneous Taking Multivitamin - Tablet 1 tablet Orally Once a day Taking Estring 2 MG Ring as directed Vaginal every 3 months Medication List reviewed and reconciled with the patient * Allergies:?N.K.D.A.no[Allerg ies Verified] Objective: * Vitals:?Ht: 61.5 in, Wt: 113 lbs, BMI:21Index, BP: 128/80 mm Hg, Temp: 97.5 F. * Examination: ???Genitourinary: ?EXTERNAL GENITALIA:?VAGINA:?BLADDER:?URETHRA:?ANUS AND PERINEUM:? 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 Plan: * Treatment: * Procedure Codes:?70579 IRRIG ATION OF [id number] INSERT PESSARY/OTHER [id number] PESSARY NON RUBBER ANY TYPE * Follow Up:?3 Months (Reason: Pessary check) * Images: Billing Information: * Visit Code:? 78151 Office Visit, Est Pt., Level 3. * Procedure Codes:? 27776 IRRIGATION OF VAGINA. 73898 INSERT PESSARY/OTHER DEVICE. A4562 PESSARY NON RUBBER ANY TYPE. * Sign off status: Completed true * Provider:?KYRIE BALLARD MD Date:?2023 Generated for Douglas paredes/Arun/eTransmitting on:?09/03/2024 12:14 PM EST History and Physical Notes * HPI (History of Present Illness) Category Sub-Category Detail Notes Category Not es SENIOR COMPLIANCE OFFICER (Procedures/Surgerie s) Pessary Insertion Follow-up: In today for follow-up of Pessary insertion for:: vaginal prolapse Pessary type:: Ring Pessary size:: 5 Satisfied with the way the Pessary is pe rforming:: Yes Able to remove the Pessary on her own:: No Has urinary incontinence:: Yes ?Is the continence a problem for her?: N o Reports vaginal bleeding:: yes on a rare occasion Reports abnormal vaginal discharge:: no Pessary removed, cleaned, and replaced: yes Vagina irrigated with antiseptic:: yes, betadine New Pessary inserted and fitted:: No Examination Category Sub-Category Detail Notes Category Not es Genitourinary EXTERNAL GENITALIA: External Genitalia:: nor mal VAGINA: Vagina:: no cystocel e, no lesions, no rectocele area of superficial erosion at apex on the right side, no active bleeding BLADDER: Bladder:: no mass, nontender URETHRA: Urethra:: no erythem a or lesions present ANUS AND PERINEUM: Anus/Perineum:: visually norm al
--- OUTSIDE RECORDS SUMMARY | 2024-09-03 12:15 | XMS_ITS | Encounter Summary ---
Author Organization [facility] Address [address] [place] [address] Care Team Providers Care Director Account Management Name Role Phone Summer Ramírez MD Primary Care Provider + [phone] Reason for Visit * Reason Onset Date Comments Prolia 08/08/2024 Encounter Details Date Type Department Care Team (Late st Contact Info) Description 08/08/2024 Telephone Endocrinology - [place] [address] [place] [address] Avani Gill PA [address] [place] [address] Prolia Social History Tobacco Use Types Packs/Day Years Used Date Smoking Tobacco: Some Days Smokeless Tobacco: Never Alcohol Use Standard Drinks/Week Comments Not Currently 0 (1 standard drink = 0.6 oz pur e alcohol) Comments Unknown Sex and Gender Information Value Date Recorded Sex Assigned at Not on file Legal Sex Female 10:05 AM EST Gender Identity Not on file Sexual Orientation Not on file documented as of this encounter Progress Notes * Latoya Escobar [place] - 08/09/2024 9:46 AM EST Spoke with Calli from [employer] phone num for deliver for patient Proladriana. They need to speak with patient for her consent they called patient left her a message to have Korina call them at .. Patient is do for her Prolia shot on 08/27/24. * Deepika Singh - 08/08/2024 1:30 PM EST Patient's daughter Korina calling to give info to Latoya for patient's Prolia to be fully covered. States we have to call the insurance at [phone]. She is requesting a call back after to let her know what is going on. documented in this encounter Plan of Treatment Upcoming Encounters Date Type Department Care Team (Late st Contact Info) Description 03/14/2025 1:00 PM EDT Office Visit Endocrinology - [place] [address] [place] [phone] Avani Gill PA [address] [place] [address] documented as of this encounter Visit Diagnoses Not on filedocumented in this encounter Care Teams Director Account Management Relationship Specialty Start Date End Date Summer Raímrez MD [address] [place] [address] PCP - General 03/01/24 documented as of this encounter
--- OUTSIDE RECORDS SUMMARY | 2024-09-03 12:15 | XMS_ITS ---
Author Organization [facility] Address [address] [place] [address] Care Team Providers Care Instructor Of Nursing Name Role Phone RAFAELA WARREN, LAURO Primary Care Provider KYRIE Mi Unavailable [phone] Allergies No Known Allergies REASON FOR VISIT PESSARY Medications Medication SIG (Take, Route, Frequency, Duration) Notes Start Date End Date Status Spiriva HandiHaler 18MCG Inhalation daily for -3 0 12/05/2013 Active ProAir HFA 108 (90 BASE)MCG/ACT Inhalation for -3 12/05/2013 Active Atorvastatin Calcium 10 MG Oral for 90 Active Isosorbide Mononitrate ER 30 MG Oral for 90 Active Advair Diskus 100-50MCG/DOSE Inhalation for -3 12/05/2013 Active Multivitamin - 1 tablet Orally Once a day for 30 day(s) 09/22/2022 Active Calcium Citrate Plus/Magnesium - as directed Orally Activ e Estradiol 2 MG 1 _insert Vaginal on ce for 3 months, then remove and insert a new ring. Repeat every 3 months for 365 days 05/28/2024 Active Tylenol 500 MG/15ML as directed Orally Active Wixela Inhub 250-50 MCG/ACT Inhalation for 90 Active Albuterol Sulfate (2.5 MG/3ML) 0.083% Inhalation for 40 Active Prolia 60 MG/ML Subcutaneous for 180 Active Social History Tobacco Use: Social History [...] other tobacco user? 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 Repeat every 3 months for 365 days 05/28/2024 Next Appt Details Follow Up: prn, Reason: Progress Notes * FARHATKAL SNOWDENLAINADOB:[birth year] (83 yo F)Acc No.[id number]:05/28/2024 PROGRESS NOTES Patient:?MARYLOU DOUGHERTY Provider:?KYRIE BALLARD MD :1940???Age:83 Y???Sex:Female D ate:05/28/2024 Address:[address] [place] [address] [address], , [place], [place] Pcp:LAURO ABERT, MODEL MAKER Subjective: * Chief Complaints: * ???PESSARY * HPI: ???UNDERWRITING INTERNSHIP (Procedures/Surgeries):? She reports that we will no longer be taking her insurance as of July 11. She will be going to see Dr Rosaline Ellison for her next pessary check/estring replacement. ?Pessary Insertion Follow-up:?In today for follow-up of Pessary insertion for:?vaginal prolapse ?Pessary type:?Ring ?Pessary size:?5 ?Satisfied with the way the Pessary is performing:?Yes ?Able to remove the Pessary on her own:?No ?Has urinary incontinence:?No ?Reports vaginal bleeding:?no ?Reports abnormal vaginal discharge:?no ?Pessary removed, cleaned, and replaced?yes ?Vagina irrigated with antiseptic:?yes, betadine * ROS:?Women Only:?Patient denies?abnormal bleeding, vaginal discharge/itching, feeling of tissue protruding through vaginal opening.?Genitourinary:?Patient denies?urinary incontinence.?Denies?Blood in urine.?Denies?Difficulty urinating.?Denies?Painful urination.? * Medical History:? 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 States vag paps WNL since.?LMP and menses?HENNY.?History of STD's:?None.?Hysterectomy:?age 29.?Colonoscopy?1 colonoscopy, declined further screening.?Bone Density:?osteoporosis followed by PCP. 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 * Examination: ???Genitourinary: ?EXTERNAL GENITALIA:?VAGINA:?BLADDER:?URETHRA:?ANUS AND PERINEUM:? 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 Plan: * Treatment: * Procedure Codes:?92996 IRRIG ATION OF VAGINA * Follow Up:?prn * Images: Billing Information: * Visit Code:? 90893 Office Visit, Est Pt., Level 3. * Procedure Codes:? 51423 IRRIGATION OF VAGINA. * Sign off status: Completed true * Provider:?KYRIE BALLARD MD Date:?2023 Generated for Douglas paredes/Arun/eTransmitting on:?09/03/2024 12:15 PM EST History and Physical Notes * HPI (History of Present Illness) Category Sub-Category Detail Notes Category Not es UNDERWRITING INTERNSHIP (Procedures/Surgerie s) Pessary Insertion Follow-up: In today for follow-up of Pessary insertion for:: vaginal prolapse Pessary type:: Ring Pessary size:: 5 Satisfied with the way the Pessary is pe rforming:: Yes Able to remove the Pessary on her own:: No Has urinary incontinence:: No Reports vaginal bleeding:: no Reports abnormal vaginal discharge:: no Pessary removed, cleaned, and replaced: yes Vagina irrigated with antiseptic:: yes, betadine Examination Category Sub-Category Detail Notes Category Not es Genitourinary EXTERNAL GENITALIA: External Genitalia:: nor mal VAGINA: Vagina:: no cystocele, no lesion s, no rectocele BLADDER: Bladder:: no mass, nontender URETHRA: Urethra:: no erythema or lesions present ANUS AND PERINEUM: Anus/Perineum:: visually norm al
--- OUTSIDE RECORDS SUMMARY | 2024-09-03 12:15 | XMS_ITS ---
Author Organization [facility] Address [address] [place] [address] Care Team Providers Care Decorating Machine Operator Name Role Phone Nancy Rene Primary Care Provider Bharathi Samson Unavailable [phone] Allergies Allergen (clinical drug ingredient) Drug/Non Drug Allergy documented on EMR Reaction Allergy Type Onset Date Status Seasonale Unknown Drug Allergy Active REASON FOR VISIT Wart(s) Medications Medication SIG (Take, Route, Frequency, Duration) Notes Start Date End Date Status Vitamin C Active Vitamin D 1000 UNIT 1 tablet Orally Once a day Active Vitamin K2-Vitamin D3 Not-Taking Spiriva HandiHaler 18 MCG Inhalation for 90 Active Tylenol Active Fluticasone Propionate Active Isosorbide Mononitrate Active Multivitamin Active oxygen Active ProAir HFA 108 (90 Base) MCG/ACT Inhalation for 25 Not-Takin g Albuterol Sulfate 108 (90 Base) MCG/ACT 1 puff as needed Inhalation Three times a day Active Albuterol Sulfate Ac tive Atorvastatin Calcium Active Calcium w/ mag, zinc Not-Tc ing Advair Diskus 250-50 MCG/DOSE Inhalation for 90 Active Alendronate Sodium N ot-Taking Cephalexin 500 MG 1 capsule Orally every 8 hrs for 10 day(s) Not-Taking Estradiol Estrogen Ring Active Prolia Active Calcium & Magnesium Carbonates Active Vagifem 10 MCG Vaginal for 84 Not-Taking Memantine HCl Not-Ta serene Lidocaine 5 % 1 application to affected area as needed Externally to effected areas on feet Three times a day for 30 days 04/04/2019 Not-Taking Albuterol Not-Taking Lisinopril-hydroCHLOR Othiazide 20-12.5 MG Oral for 90 Not-Tc ing Wixela Inhub Active Vitamin D3 Not-Takin g aspirin baby Not-Tc ing Fish Oil 1000 MG 1 capsule Orally Once a day Not-Taking Social History Tobacco Use: Social History [...] Signs Height 5 ft 1 in in 05/14/2024 Weight 115 lbs 05/14/2024 BMI 21.73 kg/m2 05/14/2024 Procedures Procedure Date Ordered Date Performed Result Body Sit e 65496-Fusu Destruction, 1-14 05/14/2024 N/A Encounters Encounter Location Date Provider Diagnosis [facility] [address] [address] 05/14/2024 Bharathi Craft Plantar wart B07.0 and Pain in right foot M79.671 Assessments Encounter Date Diagnosis (ICD Code) Assessment Notes Treatment Notes Treatment Clinical Notes Section Notes 05/14/2024 Plantar wart (ICD-10 - B07.0) 05/14/2024 Pain in right foot (ICD-10 - M79.671) Plan Of Treatment Pending Test Test Name Order Date [id number] Destruction, 1-05/14/2024 Next Appt Details Follow Up: prn, Reason: Provider Name:Bharathi Craft , 09/24/2024 02:30:00 PM, [address] [place] [address], [phone], Provider Name:Bharathi Craft , 11/05/2024 03:00:00 PM, [address] [place] [address], [phone], Procedure Notes * Category Sub-Category Detail Notes Wart Treatment Procedure Verruca were maria alejandra rided to pin-point bleeding margins with sterile 15 surgical blade, silver nitrate chemocautery applied, recomm. immune-boosting meds such as zinc, recomm. follow up with topical chemosurgical agents, recomm. Wartstick 40 percent Salicylic acid application under occlusion as directed, Pt defers any other forms of tx - [id number] Progress Notes * Olya HULL ADOB:1940 (83 yo F)Acc No.[id number]:05/14/2024 Progress Notes Patient:?Olya Hull A Provider:?Bharathi Craft DPM :1940???Age:83 Y???Sex:Female D ate:05/14/2024 Address:[address] [place] [id number] Pcp:Nancy Rene Subjective: * Chief Complaints: * ???Wart(s) * HPI: ???Wart:?Pt States Last PCP Visit:?Date:?01/05/2024 * ROS:?General/Constitutional:?Nausea?denies.?Vomiting?denies.?Hunger Thirst?denies.?Loss appetite?denies.?Chills?denies.?Fatigue?denies.?Fever?denies.?Night Sweats?denies.?Unexplained weight loss?denies.?Ophthalmologic:?Blurred [...] * Family History:?Mother: dece ased, diagnosed with Family history of arthritis, Other malignant neoplasm of unspecified site.?Father: , diagnosed with Unspecified cerebral artery occlusion [...] ?Points?1 ?Interpretation?Negative ???Miscellaneous:?Caffeine: yes, frequency:. ?Children: yes. ?no Exercise. ?Marital status: . ?Occupation: Retired. * Medications:?TakingEstradiol , Notes: Estrogen RingProlia Calcium & Magnesium Carbonates Advair Diskus 250-50 MCG/DOSE Aerosol Powder Breath Activated Inhalation Albuterol Sulfate 108 (90 Base) MCG/ACT Aerosol Powder Breath Activated 1 puff as needed Inhalation Three times a dayAlbuterol Sulfate Atorvastatin Calcium Fluticasone Propionate Isosorbide Mononitrate Multivitamin oxygen Spiriva HandiHaler 18 MCG Capsule Inhalation Tylenol Vitamin C Vitamin D 1000 UNIT Tablet 1 tablet Orally Once a dayWixela Inhub Taking Estradiol , Notes: Estrogen RingTaking Prolia Taking Calcium & Magnesium Carbonates Taking Advair Diskus 250-50 MCG/DOSE Aerosol Powder Breath Activated Inhalation Taking Albuterol Sulfate 108 (90 Base) MCG/ACT Aerosol Powder Breath Activated 1 puff as needed Inhalation Three times a dayTaking Albuterol Sulfate Taking Atorvastatin Calcium Taking Fluticasone Propionate Taking Isosorbide Mononitrate Taking Multivitamin Taking oxygen Taking Spiriva HandiHaler 18 MCG Capsule Inhalation Taking Tylenol Taking Vitamin C Taking Vitamin D 1000 UNIT Tablet 1 tablet Orally Once a dayTaking Wixela Inhub Not-Taking/PRNCalcium , Notes: w/ mag, zincProAir HFA 108 (90 Base) MCG/ACT Aerosol Solution Inhalation Vitamin K2- Vitamin D3 Vitamin D3 aspirin baby Fish Oil 1000 MG Capsule 1 capsule Orally Once a dayMemantine HCl Lidocaine 5 % Ointment 1 application to affected area as needed Externally to effected areas on feet Three times a dayAlbuterol Lisinopril-hydroCHLOROthiazide 20-12.5 MG Tablet Oral Vagifem 10 MCG Tablet Vaginal Alendronate Sodium Cephalexin 500 MG Capsule 1 capsule Orally every 8 hrsMedication List reviewed and reconciled with the patientNot-Taking/PRN Calcium , Notes: w/ mag, zincNot-Taking/PRN ProAir HFA 108 (90 Base) MCG/ACT Aerosol Solution Inhalation Not-Taking/PRN Vitamin K2-Vitamin D3 Not-Taking/PRN Vitamin D3 Not-Taking/PRN aspirin baby Not-Taking/PRN Fish Oil 1000 MG Capsule 1 capsule Orally Once a dayNot-Taking/PRN Memantine HCl Not-Taking/PRN Lidocaine 5 % Ointment 1 application to affected area as needed Externally to effected areas on feet Three times a dayNot-Taking/PRN Albuterol Not-Taking/PRN Lisinopril-hydroCHLOROthiazide 20- 12.5 MG Tablet Oral Not-Taking/PRN Vagifem 10 MCG Tablet Vaginal Not-Taking/PRN Alendronate Sodium Not-Taking/PRN Cephalexin 500 MG Capsule 1 capsule Orally every 8 hrsMedication List reviewed and reconciled with the patient * Allergies:?Seasonaleyes[Lauri rgies Verified] Objective: * Vitals:?Ht: 5 ft 1 in, Wt:11 5, BMI: 21.73, Shoe size:8.5, Wt-k.16 kg. * Examination: ???Dermatologic: ?VERRUCA:?Reveals a Single , multi-loculated , mosaic-patterned, round, raised, flat-topped, petechial bleeding papule(s), with cauliflower appearance and interruption of skin lines, pain to lateral compression, and size estimated at 5mm diameter , plantar Forefoot , RIGHT.? Assessment: * Assessment: 1.?Pain in right foot - M79. 671?2.?Plantar wart - B07.0, RIGHT? Plan: * Treatment: * Procedures:?Wart Treatment:?Procedure?Verruca were debrided to pin-point bleeding margins with sterile 15 surgical blade, silver nitrate chemocautery applied, recomm. immune-boosting meds such as zinc, recomm. follow up with topical chemosurgical agents, recomm. Wartstick 40 percent Salicylic acid application under occlusion as directed, Pt defers any other forms of tx - [id number].? * Procedure Codes:?66280 Wart Destruction, 1-14 * Follow Up:?prn * Images: * Sign off status: Completed true * Provider:?Bharathi Craft DPM Date:?2023 Generated for Douglas paredes/Arun/Wilfredo on:?09/03/2024 12:15 PM EST History and Physical Notes * HPI (History of Present Illness) Category Sub-Category Detail Notes Category Not es Wart Pt States Last PCP Visit: Date:: 01/05/2024 Examination Category Sub-Category Detail Notes Category Not es Dermatologic VERRUCA: Reveals a Single , multi-loculated , mosaic-patterned, round, raised, flat-topped, petechial bleeding papule(s), with cauliflower appearance and interruption of skin lines, pain to lateral compression, and size estimated at 5mm diameter , plantar Forefoot , RIGHT
--- OUTSIDE RECORDS SUMMARY | 2024-09-03 12:15 | XMS_ITS | Clinical Summary ---
Author Organization [facility] Address [address] [place] [address] Phone Care Team Providers Care Dementia Program Director Name Role Phone Nancy Rene NP Primary Care Provider [phone] Allergies No known active allergies Medications albuterol HFA (PROVENTIL HFA;VENTOLIN HFA) 108 (90 Base) MCG/ACT inhaler 06/27/20 20 Active atorvastatin (LIPITOR) 10 MG tablet 09/23/19 21 Active Prolia 60 MG/ML solution prefilled syringe INJECT 60MG INTO THE SKIN SUBCUTANEOUSLY EVERY 6 MONTHS. 08/28/19 21 Active Wixela Inhub 500-50 MCG/DOSE diskus inhaler 09/25/19 21 Active isosorbide mononitrate (IMDUR) 30 MG 24 hr tablet 09/22/19 21 Active Spiriva Respimat 1.25 MCG/ACT aerosol solution 07/15/19 21 Active Multiple Vitamin (multivitamin) tablet Take 1 tablet by mouth 1 (one) time each day Active ascorbic acid (VITAMIN C) 500 MG CR capsule Take 1 capsule by mouth 1 (one) time each day Active cholecalciferol (VITAMIN D-3) 25 MCG (1000 UT) tablet Take by mouth Activ e oxygen (O2) gas Inhale continuously via nasal canula Active Active Problems Problem Noted Date Diagnosed Date Adrenal adenoma 11/30/2021 Atherosclerosis of [place] arteries of the extrem ities 11/30/2021 Bursitis of hip 11/30/2021 Unspecified dementia, unspec ified severity, without behavioral disturbance, psychotic disturbance, mood disturbance, and anxiety 11/30/2021 Chronic obstructive pulmonary disease 11/30/2021 Herniation of rectum into vagina 11/30/2021 History of malignant neoplasm of breast 12/01/19 Ingrowing nail 11/30/2021 Low back pain 11/30/2021 Multiple nodules of lung 11/30/2021 Nicotine dependence 11/30/2021 Osteoporosis 11/30/2021 Plantar wart 11/30/2021 Poor short-term memory 11/30/2021 Prediabetes 11/30/2021 Atrophic vaginitis 11/30/2021 Spinal stenosis 11/30/2021 Other acute kidney failure 11/30/2021 Dizziness 11/12/2021 Overview (11/30/2021): Last Assessment & Plan: We did discuss [...] dizziness should be better. Hyperlipidemia 11/12/2021 Overview (11/30/2021): Last Assessment & Plan: Her Lipitor was stopped in the hospital due to elevated LFTs. Her LFTs were rechecked at the end of October and these were back to normal. We did discuss starting her back on her Lipitor. She is in agreement to do so. She will go back on 10 mg. I have given her a lab slip to check LFTs in about 6 weeks. Tobacco use 11/12/2021 Overview (11/30/2021): Last Assessment & Plan: She does have a history of tobacco use. I encouraged her to stop. She is on oxygen 4 L and is followed by pulmonary for her dyspnea. Coronary arteriosclerosis 11/10/2021 Myocardial infarction 11/10/2021 Protein level - finding 11/10/2021 Aortic valve stenosis 05/04/2021 Overview (11/30/2021): Last Assessment & Plan: Her echocardiogram was done in the hospital when she was and October. Her aortic stenosis has not changed. Her EF has been normal. We will continue to monitor this. Disorder of carotid artery 05/04/2021 Hypertension 05/04/2021 Overview (11/30/2021): Last Assessment & Plan: Her blood pressure is low at this time. She is off of her blood pressure medications. Adrenal mass 09/25/2020 Age-related osteoporosis wit hout current pathological fracture 10/11/2017 Overview (11/30/2021): Prolia 10/11/17; 09/01/20 Immunizations Name Administration Dates Next Due Influenza (IM) Preservative Free 04/09/2019,080 12/2017 Influenza Vaccine, Quadrivalent, Adjuvanted 02/10 Influenza Whole 03/10/2020 Moderna SARS-COV-2 09/18/2020,08/21/2020 Pneumococcal Conjugate 13-Valent 04/02/2019 Family History Medical History Relation Comments Hypertension Father Cancer Mother Relation Status Comments Father Mother Social History Tobacco Use Types Packs/Day Years Used Date Smoking Tobacco: Every Day Cigarettes Smokeless Tobacco: Never Tobacco Cessation:Ready to Q uit: Not Asked; Counseling Given: Not Answered Alcohol Use Standard Drinks/Week Comments Yes 0 (1 standard drink = 0.6 oz pur e alcohol) occasional social drinker Comments Unknown Sex and Gender Information Value Date Recorded Sex Assigned at Female 03/29/2021 10:38 PM EDT Legal Sex Female 4:58 PM EST Gender Identity Not on file Sexual Orientation Not on file Last Filed Vital Signs Vital Sign Reading Time Taken Comments Blood Pressure 110/62 03/30/2022 1:44 PM EDT Pulse 65 03/30/2023 1:33 PM EDT Temperature - - Respiratory Rate - - Oxygen Saturation 88% 03/30/2023 1:33 PM EDT Inhaled Oxygen Concentration - - Weight 53.5 kg (118 lb) 03/30/2023 1:33 PM EDT Height 162.6 cm (5' 4 ) 03/30/2022 1:44 PM EDT Body Mass Index 20.25 03/30/2022 1:44 PM EDT Plan of Treatment Health Maintenance Due Date Last Done Comments Pneumococcal Vaccine: 65+ Years (2 of 2 - PPSV23 or PCV20) 05/28/2019 04/02/2019 Influenza Vaccine (#1) 2024 0, 03/10/2020, 04/09/2019, Additional history exists Hepatitis B Vaccine Aged Out No longe r eligible based on patient's age to complete this topic Insurance [employer] Care Teams Dementia Program Director Relationship Specialty Start Date End Date Nancy Rene NP PCP - General 07/21/20
--- OUTSIDE RECORDS SUMMARY | 2024-09-03 12:15 | XMS_ITS | Encounter Summary ---
Author Organization [facility] Address [address] [place] [address] Care Team Providers Care Supervisor Fireworks Assembly Name Role Phone Summer Ramírez MD Primary Care Provider [phone] Reason for Visit * Reason Onset Date Comments Prolia 06/04/2024 Prolia Encounter Details Date Type Department Care Team ([facility] Contact Info) Description 06/04/[address] [address] Latoya Escobar MA Prolia (Prolia) Social History Tobacco Use Types Packs/Day Years [...] Progress Notes * Latoya Escobar MA - 08/07/2024 4:55 PM EST Spoke with Olya daughter she is going to call her insurances Mely to fine out why they are not covering her Prolia. * Latoya Escobar MA - 06/08/2024 8:20 AM EST Received paper work from up to our bin sasha proladriana. * Latoya Escobar MA - 06/04/2024 10:23 AM EST Paper work dropped up stairs in the bin for Prolia. documented in this encounter Plan of Treatment Upcoming Encounters Date Type Department Care Team (Late st Contact Info) Description 03/14/2025 1:00 PM EDT Office Visit Endocrinology - [place] [address] [place] [address] Avani Gill PA [address] [place] [address] documented as of this encounter Visit Diagnoses Not on filedocumented in this encounter Care Teams Supervisor Fireworks Assembly Relationship Specialty Start Date End Date Summer Ramírez MD [address] [place] [address] PCP - General 03/01/24 documented as of this encounter
--- OUTSIDE RECORDS SUMMARY | 2024-09-03 12:15 | XMS_ITS ---
Author Organization [facility] Address Unknown Problems Problem Status Start Date End Date STRAIN OF MUSCLE(S) AND TEND ON(S) OF THE ROTATOR CUFF OF LEFT SHOULDER, SUBSEQUENT ENCOUNTER (Primary) (S46.012D - ICD-10-CM) ACTIVE 10/24/2021 ATHEROSCLEROTIC HEART DISEAS E OF [place] CORONARY ARTERY WITH ANGINA PECTORIS WITH DOCUMENTED SPASM (I25.111 - ICD-10-CM) ACTIVE 10/26/2021 SPONTANEOUS RUPTURE OF OTHER TENDONS, LEFT SHOULDER (M66.812 - ICD-10-CM) ACTIVE 10/24/2021 STRAIN OF MUSCLE, FASCIA AND TENDON OF LOWER BACK, SUBSEQUENT ENCOUNTER (S39.012D - ICD-10-CM) ACTIVE 10/24/2021 PAIN IN LEFT SHOULDER (M25.512 - ICD-10-CM) ACTIVE 10/24/2021 MUSCLE WEAKNESS (GENERALIZED) (M62.81 - ICD-10-CM) ACT SONAM 10/24/2021 OTHER SYMPTOMS AND SIGNS INV OLVING COGNITIVE FUNCTIONS AND AWARENESS (R41.89 - ICD-10-CM) ACTIVE 10/24/2021 UNSPECIFIED FALL, SEQUELA (W19.XXXS - ICD-10-CM) ACTIV E 10/24/2021 AGE-RELATED OSTEOPOROSIS WIT HOUT CURRENT PATHOLOGICAL FRACTURE (M81.0 - ICD-10-CM) ACTIVE 10/24/2021 HISTORY OF FALLING (Z91.81 - ICD-10-CM) ACTIVE 0 10/24/2021 RHABDOMYOLYSIS (M62.82 - ICD-10-CM) ACTIVE 10/24 ACUTE KIDNEY FAILURE, UNSPECIFIED (N17.9 - ICD-10-CM) ACTIVE 10/24/2021 CHRONIC OBSTRUCTIVE PULMONAR Y DISEASE, UNSPECIFIED (J44.9 - ICD-10-CM) ACTIVE 10/24/2021 PRESSURE ULCER OF UNSPECIFIE D SITE, STAGE 3 (L89.93 - ICD-10-CM) ACTIVE 10/24/2021 DIFFICULTY IN WALKING, NOT E LSEWHERE CLASSIFIED (R26.2 - ICD-10-CM) ACTIVE 10/24/2021 UNSTEADINESS ON FEET (R26.81 - ICD-10-CM) ACTIVE 10/24/2021 INCOMPLETE ROTATOR CUFF TEAR OR RUPTURE OF LEFT SHOULDER, NOT SPECIFIED TRAUMATIC (M75.112 - ICD-10-CM) ACTIVE 10/24/2021 Results * VENOUS DOPPLER EXTREM/LOPEZ Performed by: [employer] Component Value Range Date VENOUS DOPPLER EXTREM/LOPEZ VENOUS DOPPLER EXTREM/LOPEZ, LEFTSee NoteFINDINGS: Left Upper Extremity Venous Duplex Ultrasound: ClnicalHistory: Pain and swelling Grayscale, color, and pulsed Doppler evaluation of the left internal jugular vein, subclavian, axillary, brachial, radial and ulnar veins. Superficial basilic and cephalic veins were evaluated. There is no visualized thrombus and normal Doppler is obtained. There are normal responses to compression when possible and Valsalva.CONCLUSION: No evidence for deep venous thrombosis.ELECTRONICALLY SIGNED BY YAZMIN CAMPBELL M.D. 11/05/2021 4:48:40 PM EDT.Reason for Study: R60.9 EDEMA, UNSPECIFIEDPrincipal Result Preschool Education Director: YAZMIN CAMPBELL ([id number])Cougar Hunter: LUANN LANDON (NMOLDOVAN)Health Service Worker Cougar Hunter: MARIA T 11/05/2021 04:49 pm EDT * VENOUS DOPPLER EXTREM/COM Performed by: [place] [employer] Component Value Range Date VENOUS DOPPLER EXTREM/COM VENOUS DOPPLER EXTREM/COMSee NoteFINDINGS: Bilateral Lower Extremity Venous Duplex Ultrasound: ClinicalHistory: Pain and swelling High-resolution real-time two-dimensional and Doppler ultrasound, including grayscale and color flow of the venous system of both lower extremities was obtained. The vessels evaluated within both lower extremities included the common femoral, superficial femoral, proximal deep femoral, greater saphenous, popliteal, posterior tibial and calf veins. There is spontaneous and augmented flow within the vessels. There is normal compression response and normal Doppler was observed. No intraluminal thrombus is identified. No Anderson's cyst is identified.CONCLUSION: No evidence for deep venous thrombosis or Anderson's cyst.ELECTRONICALLY SIGNED BY YAZMIN CAMPBELL M.D. 11/05/2021 4:48:13 PM EDT.Reason for Study: R60.9 EDEMA, UNSPECIFIEDPrincipal Result Preschool Education Director: YAZMIN CAMPBELL ([id number])Cougar Hunter: LUANN LANDON (NMOLDOVAN)Health Service Worker Cougar Hunter: MARIA T 11/05/2021 04:48 pm EDT Encounters Encounter Performer Performer Role Encounter Diagnoses Location Date Discharge - Discharged / Transferred to another hospital - [facility] ([place]) - Acute care hospital [facility] 10/24/2021 03:19 pm EDT - 10/28/2021 05:39 pm EDT Discharge - Discharged to home or self care - [facility] [place] - Private home/apt. with home health services [facility] 10/29/2021 06:27 am EDT - 12/03/2021 12:02 pm EDT Immunizations Vaccine Date SARS-COV-2 (COVID-19) 09/18/2020 12:00 a m EST SARS-COV-2 (COVID-19) 08/21/2020 12:00 a m EST Social History
--- OUTSIDE RECORDS SUMMARY | 2024-09-03 12:15 | XMS_ITS | Encounter Summary ---
Author Organization [facility] Address [address] [place] [address] Phone Care Team Providers Care Bench Patternmaker Metal Name Role Phone Nancy Rene NP Primary Care Provider [phone] Encounter Details Date Type Department Care Team (Late st Contact Info) Description 10/07/2020 Orders Only [facility] [address] [place] [address] Provider, MD Marie [address] [place] [address] Social History Tobacco Use Types Packs/Day Years Used Date Smoking Tobacco: Every Day Cigarettes Smokeless Tobacco: Never Alcohol Use Standard Drinks/Week Comments Yes 0 (1 standard drink = 0.6 oz pur e alcohol) occasional social drinker Comments Unknown Sex and Gender Information Value Date Recorded Sex Assigned at Female 03/29/2021 10:38 PM EDT Legal Sex Female 4:58 PM EST Gender Identity Not on file Sexual Orientation Not on file documented as of this encounter Plan of Treatment Not on file documented as of this encounter Procedures Procedure Name Priority Date/Time Associated Diagnosis Comments EXT RESULT ENTRY Routine 10/07/2020 documented in this encounter Results * EXT RESULT ENTRY (10/07/2020) Historical Provider LAB BLOOD ORDERABLES Scarlet l Result documented in this encounter Visit Diagnoses Not on filedocumented in this encounter Care Teams Bench Patternmaker Metal Relationship Specialty Start Date End Date Nancy Rene NP PCP - General 07/21/20 documented as of this encounter
--- OUTSIDE RECORDS SUMMARY | 2024-09-03 12:15 | XMS_ITS ---
Author Organization [facility] Address [address] [place] [address] Care Team Providers Care Outsole Rounder Name Role Phone Nancy Rene Primary Care Provider Bharathi Samson Unavailable [phone] Allergies Allergen (clinical drug ingredient) Drug/Non Drug Allergy documented on EMR Reaction Allergy Type Onset Date Status Seasonale Unknown Drug Allergy Active REASON FOR VISIT Wart(s) Medications Medication SIG (Take, Route, Frequency, Duration) Notes Start Date End Date Status Estradiol Estrogen Ring Active levoFLOXacin Active Cephalexin 500 MG 1 capsule Orally every 8 hrs for 10 day(s) Not-Taking Alendronate Sodium N ot-Taking Prolia Active Lidocaine 5 % 1 application to affected area as needed Externally to effected areas on feet Three times a day for 30 days 04/04/2019 Not-Taking Memantine HCl Not-Ta serene Vagifem 10 MCG Vaginal for 84 Not-Taking Lisinopril-hydroCHLOR Othiazide 20-12.5 MG Oral for 90 Not-Tc ing Albuterol Not-Taking Fish Oil 1000 MG 1 capsule Orally Once a day Not-Taking aspirin baby Not-Tc ing Vitamin D3 Not-Takin g Vitamin K2-Vitamin D3 Not-Taking ProAir HFA 108 (90 Base) MCG/ACT Inhalation for 25 Not-Takin g Calcium w/ mag, zinc Not-Tc ing Wixela Inhub Active Vitamin D 1000 UNIT 1 tablet Orally Once a day Active Vitamin C Active Tylenol Active Spiriva HandiHaler 18 MCG Inhalation for 90 Active oxygen Active Multivitamin Active Isosorbide Mononitrate Active Fluticasone Propionate Active Atorvastatin Calcium Active Albuterol Sulfate Ac tive Albuterol Sulfate 108 (90 Base) MCG/ACT 1 puff as needed Inhalation Three times a day Active Advair Diskus 250-50 MCG/DOSE Inhalation for 90 Active Calcium & Magnesium Carbonates Active Social History Tobacco Use: Social History Observation Description Date Details (start date - stop date) Current Smoker 07/28/1955 - NA Alcohol Screen Question Answer Notes Did you have a drink contain ing alcohol in the past year? Yes How often did you have a dri nk containing alcohol in the past year? Monthly or less (1 point) Points 1 Interpretation Negative Tobacco use other than smoking: Question Answer Notes Are you an other tobacco user? No Tobacco Control (Standard) Question Answer Notes Tobacco use: Current smoker When did you start smoking? 07/28/1955 How many cigarettes a day do you smoke? 5 or les s How soon after you wake up do you smoke your fir st cigarette? 31-60 minutes Are you interested in quitting? Not ready to ross t Vital Signs Height 5 ft 1 in in 08/09/2024 Weight 115 lbs 08/09/2024 BMI 21.73 kg/m2 08/09/2024 Blood pressure systolic 121 mm Hg 08/09/19 25 Blood pressure diastolic 58 mm Hg 025 Procedures Procedure Date Ordered Date Performed Result Body Sit e 14479-Nfwv Destruction, -08/09/2024 N/A Encounters Encounter Location Date Provider Diagnosis [facility] [address] [address] 08/09/2024 Bharathi Craft Plantar wart B07.0 and Pain in right foot M79.671 Assessments Encounter Date Diagnosis (ICD Code) Assessment Notes Treatment Notes Treatment Clinical Notes Section Notes 08/09/2024 Plantar wart (ICD-10 - B07.0) 08/09/2024 Pain in right foot (ICD-10 - M79.671) Plan Of Treatment Pending Test Test Name Order Date 08886-Ajhq Destruction, -08/09/2024 Next Appt Details Follow Up: prn, Reason: Provider Name:Bharathi Craft , 09/24/2024 02:30:00 PM, [address] [address], [place], [address], Provider Name:Bharathi Craft , 11/05/2024 03:00:00 PM, [address] , [address], [place], [address], Procedure Notes * Category Sub-Category Detail Notes Wart Treatment Procedure Verruca were maria alejandra rided to pin-point bleeding margins with sterile 15 surgical blade, silver nitrate chemocautery applied, recomm. immune-boosting meds such as zinc, recomm. follow up with topical chemosurgical agents, recomm. Wartstick 40 percent Salicylic acid application under occlusion as directed, Pt defers any other forms of tx - 79905 Progress Notes * Olya HULL ADOB:1940 (83 yo F)Acc No.[id number]:08/09/2024 Progress Notes Patient:?Olya HULL Provider:?Bharathi Craft DPM :1940???Age:83 Y???Sex:Female D ate:08/09/2024 Address:[address] [place], [place] [id number] Pcp:Nancy Rene Subjective: * Chief Complaints: * ???Wart(s) * HPI: ???Wart:?Pt States Last PCP Visit:?Date:?06/25/2024 ?Misc:?Pt accompanied by, Daughter, Abeba.? * ROS:?General/Constitutional:?Nausea?denies.?Vomiting?denies.?Hunger Thirst?denies.?Loss appetite?denies.?Chills?denies.?Fatigue?denies.?Fever?denies.?Night Sweats?denies.?Unexplained weight loss?denies.?Ophthalmologic:?Blurred [...] and 1 alive. * Social History:?Tobacco Use:?Tobacco use other than smoking?Are you an other tobacco user??No ?Tobacco Control (Standard)?Tobacco use:?Current smoker ?When did you start smoking??07/28/1955 ?How many cigarettes a day do you smoke??5 or less ?How soon after you wake up do you smoke your first cigarette??31-60 minutes ?Are you interested in quitting??Not ready to quit ???Drugs/Alcohol:?Drugs?Have you used drugs other than those [...] Inhub Not-Taking/PRNCalcium , Notes to Pharmacist: w/ mag zincProAir HFA 108 (90 Base) MCG/ACT Aerosol [...] patientNot-Taking/PRN Calcium , Notes to Pharmacist: w/ mag zincNot-Taking/PRN ProAir HFA 108 (90 Base) MCG/ACT [...] 15, BMI: 21.73, Shoe size: 8.5, BP: 121/58 mm Hg, Wt-k.16 kg. * Examination: ???Dermatologic: ?VERRUCA:?Reveals a Single , multi-loculated , mosaic-patterned, round, raised, flat-topped, petechial bleeding papule(s), with cauliflower appearance and interruption of skin lines, pain to lateral compression, and size estimated at 5mm diameter , plantar Forefoot , RIGHT.? Assessment: * Assessment: 1.?Pain in right foot - M79. 671???2.?Plantar wart - B07.0 (Primary)???Specify :RIGHT??? Plan: * Treatment: * Procedures:?Wart Treatment:?Procedure?Verruca were debrided to pin-point bleeding margins with sterile 15 surgical blade, silver nitrate chemocautery applied, recomm. immune-boosting meds such as zinc, recomm. follow up with topical chemosurgical agents, recomm. Wartstick 40 percent Salicylic acid application under occlusion as directed, Pt defers any other forms of tx - 17273.? * Procedure Codes:?67512 Wart Destruction, 1-14 * Preventive Medicine:? ??Counseling:?Tobacco use:?Patient counseled on the dangers of smoking and urged to quit:?08/09/2024 * Follow Up:?prn * Images: * Sign off status: Completed true * Provider:?Bharathi Craft DPM Date:?2024 Generated for Douglas paredes/Arun/eTransmitting on:?09/03/2024 12:14 PM EST History and Physical Notes * HPI (History of Present Illness) Category Sub-Category Detail Notes Category Not es Wart Misc: Pt accompanied by, Daughter, Abeba Pt States Last PCP Visit: Date:: 06/25/2024 Examination Category Sub-Category Detail Notes Category Not es Dermatologic VERRUCA: Reveals a Single , multi-loculated , mosaic-patterned, round, raised, flat-topped, petechial bleeding papule(s), with cauliflower appearance and interruption of skin lines, pain to lateral compression, and size estimated at 5mm diameter , plantar Forefoot , RIGHT
--- OUTSIDE RECORDS SUMMARY | 2024-09-03 12:15 | XMS_ITS ---
Author Organization [facility] Address [address] [place] [address] Care Team Providers Care Collision Center Manager Name Role Phone RAFAELA WARREN, LAURO Primary Care Provider KYRIE Mi Unavailable [phone] Allergies No Known Allergies REASON FOR VISIT PESSARY Medications Medication SIG (Take, Route, Frequency, Duration) Notes Start Date End Date Status Estring 2 MG as directed Vaginal every 3 months for 365 days 06/20/2023 Active Multivitamin - 1 tablet Orally Once a day for 30 day(s) 09/22/2022 Active Albuterol Sulfate (2.5 MG/3ML) 0.083% Inhalation for 40 Active Prolia 60 MG/ML Subcutaneous for 180 Active Wixela Inhub 250-50 MCG/ACT Inhalation for 90 Active Spiriva HandiHaler 18MCG Inhalation daily for -3 0 12/05/2013 Active ProAir HFA 108 (90 BASE)MCG/ACT Inhalation for -3 12/05/2013 Active Atorvastatin Calcium 10 MG Oral for 90 Active Isosorbide Mononitrate ER 30 MG Oral for 90 Active Advair Diskus 100-50MCG/DOSE Inhalation for -3 12/05/2013 Active Calcium Citrate Plus/Magnesium - as directed Orally Activ e Tylenol 500 MG/15ML as directed Orally Active [...] other tobacco user? No Vital Signs Temperature 97.8 degrees Fahrenheit 11/21/19 24 Blood pressure systolic 100 mm Hg 11/21/19 24 Blood pressure diastolic 60 mm Hg 024 Height 61.5 in 11/21/2023 Weight 111 lbs 11/21/2023 BMI 20.63 kg/m2 11/21/2023 Encounters Encounter Location Date Provider Diagnosis 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 Assessments Encounter Date Diagnosis (ICD Code) Assessment Notes Treatment Notes Treatment Clinical Notes Section Notes 11/21/2023 Other specified noninflammatory disorders of vagina (ICD-10 - N89.8) 11/21/2023 Prolapse of vaginal vault after hysterectomy (ICD-10 - N99.3) Plan Of Treatment Next Appt Details Follow Up: 3 Months, Reason: Pessary check Progress Notes * MARYLOU DOUGHERTYDOB:[birth year] (83 yo F)Acc No.[id number]:11/21/2023 Progress Note Patient:?MARYLOU DOUGHERTY Provider:?KYRIE BALLARD MD :1940???Age:83 Y???Sex:Female D ate:11/21/2023 Address:[address] [place] [address] [address], , [place], [place] Pcp:LAURO RUSSO NP Subjective: * Chief Complaints: * ???PESSARY * HPI: ???ARCHITECTURE INTERNSHIP (Procedures/Surgeries):?Pessary Insertion Follow-up:?In today for follow-up of [...] urine.?Denies?Difficulty urinating.?Denies?Painful urination.? * Medical History:? * Manager Strategy History:?/ Para?3/3.?Sexual activity?not currently sexually active.?Mammogram:?no further mammos, s/p bilateral mastectomy.?Abnormal Pap Smear:?CIN3 or cervical ca, s/p hyst age 29 for uterine ca. States vag paps WNL since.?LMP and menses?HENNY.?History of STD's:?None.?Hysterectomy:?age 29.?Colonoscopy?1 colonoscopy, declined further screening.?Bone Density:?osteoporosis followed by PCP. Last BMD 2019.?ARCHITECTURE INTERNSHIP HISTORY MISC.?ring with support pessary 2.75mm for cystocele and rectoceleuterine ca age 29, s/p hyst, ovaries remainbilateral breast ca late , recurred on L 2006, then had bilateral mastectomy.? * OB History:?Total pregnancies?, vaginal.? * Surgical History:?Hysterecto my age 29, uterine ca, ovaries remain Bilateral Mastectomies, initial dx in 1990s * Hospitalization/Major Diagno stic Procedure:?See Surgical Hx [...] Verified] Objective: * Vitals:?Ht: 61.5 in, Wt: 111 lbs, BMI:20.63Index, BP: 100/60 mm Hg, Temp: 97.8 F. * Examination: ???Genitourinary: ?EXTERNAL GENITALIA:?VAGINA:?BLADDER:?URETHRA:?ADNEXA:?ANUS AND PERINEUM:? 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 Plan: * Treatment: * Procedure Codes:?29230 IRRIG ATION OF VAGINA * Follow Up:?3 Months (Reason: Pessary check) * Images: Billing Information: * Visit Code:? 33614 Office Visit, Est Pt., Level 3. * Procedure Codes:? 71415 IRRIGATION OF VAGINA. * Sign off status: Completed true * Provider:?KYRIE BALLARD MD Date:?2023 Generated for Manohari reggie/Arun/eTransmitting on:?09/03/2024 12:15 PM EST History and Physical Notes * HPI (History of Present Illness) Category Sub-Category Detail Notes Category Not es ARCHITECTURE INTERNSHIP (Procedures/Surgerie s) Pessary Insertion Follow-up: In [...] GENITALIA: External Genitalia:: nor mal VAGINA: Vagina:: moderate excoria tions of vaginal vault with granulation tissue - small amounts of bleeding. Area cauterized with silver nitrate. BLADDER: Bladder:: no mass, nontender URETHRA: Urethra:: no erythem a or lesions present ADNEXA: Adnexa:: no masses, no tenderness ANUS AND PERINEUM: Anus/Perineum:: visually norm al
== END 2024-09-03 11:28 | disposition home or self-care (01) ==
PROVIDERS: PCP Internal Medicine; Visit Provider Nurse Practitioner Family
DX: R29.898 Other symptoms and signs involving the musculoskeletal system (principal); S49.92XA Unspecified injury of left shoulder and upper arm, initial encounter; S14.3XXA Injury of brachial plexus, initial encounter
CPT/HCPCS: 99214

== ENCOUNTER → 2024-09-03 10:48 | Outpatient (BNVA) | payer MEDICARE, SELFPAY | PROVIDERS: PCP Internal Medicine; Visit Provider Nurse Practitioner Family | DX: R29.898 Other symptoms and signs involving the musculoskeletal system (principal); S14.3XXD Injury of brachial plexus, subsequent encounter | CPT/HCPCS: 99212 ==

== ENCOUNTER 2024-09-05 09:51 | Outpatient (AMB) | payer MEDICARE, SELFPAY ==
--- NOTE | 2024-09-05 09:53 | MHC.OFFVIS ---
Vital Signs 09/05/24 09:54 Height 5 ft 1 in Weight 114 lb 10.246 oz BMI 21.7 BP 120/82 Blood Pressure Location Rt brachial Position Sitting Pulse 53 Pulse Source Pulse Oximeter Pulse Oximetry (%) 92 Oxygen Delivery Method Nasal Cannula Oxygen Flow Rate 1 Intake Visit Reasons: Pulmonary Nodules Allergies No Known Allergies Allergy (Verified 09/05/24 09:58) HPI Comments Details: The patient is an 83 year woman with a known history of advanced emphysema COPD and chronic respiratory failure. She does get oxygen from [employer]. She does have a portable oxygen concentrator that she uses the 4 L pulse with activity. She also sleeps with the oxygen at home at 4 L. the family is wondering if she is using too much oxygen. Will plan to do an overnight oximetry to assess that. In addition to that she does use Wixela and Spiriva with good effect. She still has a cough chest congestion. She has not interested in any additional medications at this time. Because of the chronic bronchitis component I do believe that a Acapella valve will be helpful for chest PT. I did instruct her how to use it and will request 1 from a [employer], [employer]. The patient also has multiple pulmonary nodules. She has been followed mostly by a woods laborer in the area for many years. She has had CT scans every 6 months. Some of the nodules have been increasing in size. Back in June 2023 she had a PET scan at [facility] and then subsequently repeat CT scan at the [facility]. I did personally review the CT scan. Appears that some of the nodules are spiculated appearance and some of them are larger in size measuring little more than a cm in size. Although she does have extensive emphysema and she does require significant oxygen so therefore any kind of biopsy for the patient will be very high risk and may not be worthwhile. We did talk about following the nodules closely and we can also consider stereotactic radiation if needed. But even that will be difficult. The patient also has a very limited movement of her left shoulder because of a torn rotator coughing that also limits and positioning for any kind of procedures. Apparently she did try to get a biopsy of the pulmonary nodules in the past but she could not position herself because of significant pain from the left shoulder. 05/07/2024 the patient is here for a pulmonary follow-up visit. The patient overall has been doing better. She does complain of a cough productive in nature with yellow sputum. She has been noticing this for the last few weeks. She does not feel sick like she has not had any fevers. Although the daughter has noticed that his energy level has been a little lower. She continues with the inhalers as prescribed. She did get the Acapella valve and she is using it several times a day and that is helping with the expectorations. We did follow-up with a CT scan of the chest that she had at [facility] demonstrating interval worsening of airspace disease in the right upper lobe right middle lobe and right lower lobe area appears to be more consistent with infection. In addition to that she has other pulmonary nodules that are being followed. His hard to know if this airspace disease is related to malignant process or if it is infectious. I do believe it is more infectious at this time. The patient is with her daughter they are concerned about unnecessary antibiotics. I did recommend a course of doxycycline. While we were able to do is get a sputum culture and I will send to the laboratory right now. Hopefully we can get a speciation of an organism. If we can at least identify an organism within treated more effectively. If she worsens then she will call and we can place her on empiric antibiotics specially if the sputum is not helpful. Will plan to repeat an x-ray with the next visit in 3-4 months. 09/05/2024 the patient is here for a pulmonary follow-up visit. She still struggling with a cough. Chest congestion moderate severity. Sometimes difficult to expectorate. She has been using her nebulizer 3 times week followed by the Acapella valve. She does have help from her family since she has had issues with her left arm. She still can set up her nebulizer though. She has a hard time with her inhalers. Her only has Wixela and Spiriva at home that she uses. However, she does need help with those inhalers. We did talk about switching over to Trelegy to make it just once a day get all the medicines at once but right now she has plenty of supplies will wait for her to run out and then order Trelegy. We also talked about other potential medications such as phosphodiesterase 4 inhibitors via nebulizer. In addition to we can start her on azithromycin. 3 times a week. The patient has had a sputum culture with Pseudomonas also Haemophilus and Moraxella. Therefore significant congestion and polymicrobial disease. Unfortunately she continues to smoke cigarettes making her airways more prone to infections and mucus production. The patient does not want to quit. She understands cigarettes are taken away from her quality of life. In the meantime will start her on the azithromycin and will have her come back in about 2-3 months to we can readdress her medication changes. She will have an EKG done then the coming weeks to make sure she is tolerating the azithromycin. [facility] Medical History (Updated 09/05/24 @ 13:02 by Turner Hartman MD) Tobacco dependence Bronchopneumonia Chronic respiratory failure Pulmonary nodules Vaginal wall prolapse Spinal stenosis Rectocele Pulmonary emphysema Prediabetes Osteoporosis On home oxygen therapy Low back pain HTN (hypertension) Coronary atherosclerosis COPD (chronic obstructive pulmonary disease) Bursitis of hip Aortic valve stenosis Adrenal adenoma Surgical History H/O: hysterectomy H/O mastectomy Family History Mother Breast cancer Social History (Updated 09/05/24 @ 09:58 by Kelli Spence CMA) Alcohol intake: current Alcohol intake frequency: holidays/special occasions only Patient Tobacco Use Status: Current everyday Tobacco user Cigarettes Per Day: 3 Review of Systems Const Denies fever(s) ENT Reports nasal congestion Card Denies chest pain and Reports dyspnea on exertion Resp Reports change in phlegm color, Reports chest congestion, Reports cough, Reports dyspnea on exertion and Reports wheezing GI Reports no additional complaints Musc Reports myalgias, Reports arthralgias, Reports joint swelling, Reports limited range of motion and Reports muscle weakness Skin/Breast Denies rash Aller/Immun Reports wheezing Physical Exam Vital Signs: Last Vital Signs Pulse 53 09/05/24 09:54 BP 120/82 09/05/24 09:54 Pulse Ox 92 09/05/24 09:54 Oxygen Delivery Method Nasal Cannula 09/05/24 09:54 Oxygen Flow Rate 1 09/05/24 09:54 BMI result Body Mass Index 21.7 Const General: comfortable and alert Nutritional Appearance: thin HEENT Head: Yes normocephalic Neck Neck: Yes supple Chest Chest palpation & inspection: normal inspection of the chest Resp Effort & Inspection: normal respiratory effort and Actively coughing Quality: productive Auscultation: diminished lung sounds Cardio Heart sounds: S1 normal heart sound present, S2 normal heart sound present and Murmur heart sound present GI Palpation (GI): Soft to palpation Skin General skin exam: no rashes or lesions noted Extrem General: Yes no clubbing, cyanosis or edema Assessment & Plan Assessment & Plan (1) COPD (chronic obstructive pulmonary disease): Code(s): J44.9 - Chronic obstructive pulmonary disease, unspecified Category: Medical Qualifiers: COPD type: emphysema Emphysema type: centrilobular Qualified Code(s): J43.2 - Centrilobular emphysema (2) Pulmonary nodules: Code(s): R91.8 - Other nonspecific abnormal finding of lung field Category: Medical (3) Chronic respiratory failure: Code(s): J96.10 - Chronic respiratory failure, unspecified whether with hypoxia or hypercapnia Category: Medical Qualifiers: Respiratory failure complication: hypoxia Qualified Code(s): J96.11 - Chronic respiratory failure with hypoxia (4) Bronchopneumonia: Code(s): J18.0 - Bronchopneumonia, unspecified organism Category: Medical (5) Tobacco dependence: Code(s): F17.200 - Nicotine dependence, unspecified, uncomplicated Category: Medical Plan continue Wixela continue Spiriva ROSA MARIA as needed start Azithromycin MWF EKG conitnue oxygen supplementation: 2L/pulse at rest, 4L/pulse with activity, 4L/min with sleep CXR tobacco cessation F/U 3-4 months Orders: Orders ECG 12 lead EKG Today J44.9 - Chronic obstructive pulmonary disease, unspecified XR chest 2V Today J43.2 - Centrilobular emphysema Medications: New azithromycin Take 1 tablet on Tuesday/Tuesday/Tuesday 250 mg PO 3XW 90 days 39 tabs 0RF K21.9 - Gastro-esophageal reflux disease without esophagitis Coding Level of Care Code Est Pt Level 4 (15374) Complex EM visit Add On G2211 Diagnoses Centrilobular emphysema J43.2 COPD type: emphysema Emphysema type: centrilobular Pulmonary nodules R91.8 Chronic respiratory failure with hypoxia J96.11 Respiratory failure complication: hypoxia Bronchopneumonia J18.0 Tobacco dependence F17.200 Time Spent (min) 17
[2024-09-05 09:54] VITALS: BP 120/82; PULSE 53; O2SAT 92; BMI 21.7
--- OUTSIDE RECORDS SUMMARY | 2024-09-05 11:37 | XMS_ITS ---
Author [facility] Address [address] [place] [address] Care Team Providers Care Ethanol Operator Name Role Phone Nancy Rene Primary Care Provider Bharathi Samson Unavailable [phone] Allergies Allergen (clinical drug ingredient) Drug/Non Drug [...] Ordered Date Performed Result Body Sit e 56118-Nesy Destruction, -08/09/2024 N/A Encounters Encounter Location Date Provider Diagnosis [facility] [address] [address] 08/09/2024 Bharathi Craft Plantar wart B07.0 and Pain in right foot M79.671 Assessments Encounter Date Diagnosis (ICD Code) Assessment Notes Treatment Notes Treatment Clinical Notes Section Notes 08/09/2024 Plantar wart (ICD-10 - B07.0) 08/09/2024 Pain in right foot (ICD-10 - M79.671) Plan Of Treatment Pending Test Test Name Order Date 31781-Tiej Destruction, -08/09/2024 Next Appt Details Follow Up: prn, Reason: Provider Name:Bharathi Craft , 09/24/2024 02:30:00 PM, [address] [address], [place], [address], Provider Name:Bharathi Craft , 11/05/2024 03:00:00 PM, [address], [place], [address], Procedure Notes * Category Sub-Category Detail Notes Wart Treatment Procedure Verruca were maria alejandra rided to pin-point bleeding margins with sterile 15 surgical blade, silver nitrate chemocautery applied, recomm. immune-boosting meds such as zinc, recomm. follow up with topical chemosurgical agents, recomm. Wartstick 40 percent Salicylic acid application under occlusion as directed, Pt defers any other forms of tx - 03539 Progress Notes * Olya HULL ADOB:1940 (83 yo F)Acc No.[id number]:08/09/2024 Progress Notes Patient:?Olya HULL Provider:?Bharathi Craft DPM :1940???Age:83 Y???Sex:Female D ate:08/09/2024 Address:[address] [place], [place] [address] Pcp:Nancy Rene Subjective: * Chief Complaints: * [...] defers any other forms of tx - 14713.? * Procedure Codes:?84476 Wart Destruction, 1-14 * Preventive Medicine:? ??Counseling:?Tobacco use:?Patient counseled on the dangers of smoking and urged to quit:?08/09/2024 * Follow Up:?prn * Images: * Sign off status: Completed true * Provider:?Bharathi Craft DPM Date:?2024 Generated for Douglas paredes/Arun/eTransmitting on:?09/05/2024 11:37 AM EST History and Physical Notes * HPI [...]
--- OUTSIDE RECORDS SUMMARY | 2024-09-05 11:37 | XMS_ITS | Encounter Summary ---
Author Organization [facility] Address [address] [place] [address] Care Team Providers Care Acquisition Professional Name Role Phone Summer Ramírez MD Primary Care Provider + [phone] Reason for Visit * Reason Onset Date Comments Prolia 08/08/2024 Encounter Details Date Type Department Care Team (Late st Contact Info) Description 08/08/2024 Telephone Endocrinology - [place] [address] [place] [address] Avani Gill PA [address] [place] [address] Prolia Social History Tobacco Use Types Packs/Day [...] 9:46 AM EST Spoke with Calli from [employer] phone num for deliver for patient Proladriana. [...] we have to call the insurance at [phone]. She is requesting a call back after to let her know what is going on. documented in this encounter Plan of Treatment Upcoming Encounters Date Type Department Care Team (Late st Contact Info) Description 03/14/2025 1:00 PM EDT Office Visit Endocrinology - [place] [address] [place] [address] Avani Gill PA [address] [place] [address] documented as of this encounter Visit Diagnoses Not on filedocumented in this encounter Care Teams Acquisition Professional Relationship Specialty Start Date End Date Summer Ramírez MD [address] [place] [address] PCP - General 03/01/24 documented as of this encounter
--- OUTSIDE RECORDS SUMMARY | 2024-09-05 11:37 | XMS_ITS ---
Author Organization [facility] Address [address] [facility] [address] [place] [address] Care Team Providers Care Metal Fabricator Helper Name Role Phone RAFAELA WARREN, LAURO Primary Care Provider KYRIE Mi Unavailable [phone] Allergies No Known Allergies REASON FOR VISIT [...] 05/28/2024 Encounters Encounter Location Date Provider Diagnosis [address] [address] 05/28/2024 KYRIE BALLARD Prolapse of vaginal vault [...] * FARHATKAL SNOWDENLAINADOB:[birth year] (83 yo F)Acc No.[id number]:05/28/2024 PROGRESS NOTES Patient:?MARYLOU DOUGHERTY Provider:?KYRIE BALLARD MD :1940???Age:83 Y???Sex:Female D ate:05/28/2024 Address:[address] [place] [address] [address], , [place], [place] Pcp:LAURO ABERT, SALES PLANNING COORDINATOR Subjective: * Chief Complaints: * ???PESSARY * HPI: ???JEWELRY MANAGER (Procedures/Surgeries):? She reports that we will no [...] urine.?Denies?Difficulty urinating.?Denies?Painful urination.? * Medical History:? * Evaluation Analyst History:?/ Para?3/3.?Sexual activity?not currently sexually active.?Mammogram:?no further mammos, s/p bilateral mastectomy.?Abnormal Pap Smear:?CIN3 or cervical ca, s/p hyst age 29 for uterine ca. States vag paps WNL since.?LMP and menses?HENNY.?History of STD's:?None.?Hysterectomy:?age 29.?Colonoscopy?1 colonoscopy, declined further screening.?Bone Density:?osteoporosis followed by PCP. Last BMD 2019.?JEWELRY MANAGER HISTORY MISC.?ring with support pessary 2.75mm for [...] Temp: 98.0 F. * Examination: ???Genitourinary: ?EXTERNAL GENITALIA:?External Genitalia:?normal ?VAGINA:?Vagina:?no cystocele, no lesions, no rectocele ?BLADDER:?Bladder:?no mass, nontender ?URETHRA:?Urethra:?no erythema or lesions present ?ANUS AND PERINEUM:?Anus/Perineum:?visually normal??? 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 Plan: * Treatment: * Procedure Codes:?26041 IRRIG ATION OF VAGINA * Follow Up:?prn * Images: Billing Information: * Visit Code:? 06075 Office Visit, Est Pt., Level 3. * Procedure Codes:? 44963 IRRIGATION OF VAGINA. * Sign off status: Completed true * Provider:?KYRIE BALLARD MD Date:?2023 Generated for Douglas paredes/Arun/Mallyitting on:?09/05/2024 11:37 AM EST History and Physical Notes * HPI (History of Present Illness) Category Sub-Category Detail Notes Category Not es JEWELRY MANAGER (Procedures/Surgerie s) Pessary Insertion Follow-up: In today [...]
--- OUTSIDE RECORDS SUMMARY | 2024-09-05 11:37 | XMS_ITS | Clinical Summary ---
Author Organization [facility] Address [address] [place] [address] Phone Care Team Providers Care Electromechanical Technologist Name Role Phone Nancy Rene NP Primary Care Provider [phone] Allergies No known active allergies Medications albuterol [...] Diagnosed Date Adrenal adenoma 11/30/2021 Atherosclerosis of [place] arteries of the extrem ities 11/30/2021 Bursitis [...] Insurance [employer] Care Teams Electromechanical Technologist Relationship Specialty Start Date End Date Nancy Rene NP PCP - General 07/21/20
--- OUTSIDE RECORDS SUMMARY | 2024-09-05 11:37 | XMS_ITS | Encounter Summary ---
Author Organization [facility] Address [address] [place] [address] Care Team Providers Care Window Shade Ring Coverer Name Role Phone Summer Ramírez MD Primary Care Provider + [phone] Reason for Visit * Reason Onset Date Comments Prolia 06/04/2024 Prolia Encounter Details Date Type Department Care Team ([facility] Contact Info) Description 06/04/[address] [address] Latoya Escobar [place] Prolia (Prolia) Social History [...] 1:00 PM EDT Office Visit Endocrinology - [place] [address] [place] [address] Avani Gill PA [address] [place] [address] documented as of this encounter Visit Diagnoses Not on filedocumented in this encounter Care Teams Window Shade Ring Coverer Relationship Specialty Start Date End Date Summer Ramírez MD [address] [place] [address] PCP - General 03/01/24 documented as of this encounter
--- OUTSIDE RECORDS SUMMARY | 2024-09-05 11:37 | XMS_ITS | Patient Health Record ---
Author Organization [facility] Address [address] [facility] [address] [place] [address] Care Team Providers Care Insulation Nozzleman Name Role Phone RAFAELA WARREN, LAURO Primary Care Provider KYRIE Mi Unavailable [phone] Allergies No Known Allergies Reason For Referral [...] Status Risk Notes Problem Postmenopausal atrophic vaginitis (41150934) Postmenopausal atrophic vaginitis (N95.2) Active confirmed Problem Herniation of rectum into vagina (418306958) Rectocele (N81.6) Active confirmed Problem Age-related osteoporosis (957218839) Age-related osteoporosis without current pathological fracture (M81.0) Active confirmed Problem Essential hypertension (09837854) Essential (primary) hypertension (I10) Active confirmed Problem Chronic obstructive pulmonary disease (05180790) Chronic obstructive pulmonary disease, unspecified (J44.9) Active confirmed Problem Cystocele (623869894) Cystocele, unspecified (N81.10) Active confirmed Problem Prolapse of vaginal vault after hysterectomy (55647967) 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) Active confirmed Problem Personal history of primary malignant neoplasm of breast (880573404) Personal history of malignant neoplasm of breast (Z85.3) Active confirmed Vital Signs Temperature 98.0 degrees Fahrenheit 05/28/2024 Blood pressure diastolic 64 mm Hg 05/28/2024 Height 61.5 in 05/28/2024 Blood pressure systolic 114 mm Hg 05/28/2024 Weight 113 lbs 05/28/2024 BMI 21 kg/m2 05/28/2024 Encounters Encounter Location Date Provider Diagnosis [place] [address] [place] [address] 11/21/2023 KYRIE BALLARD Other specified noninflammatory disorders of vagina N89.8 and Prolapse of vaginal vault after hysterectomy N99.3 [place] [address] [address] [facility] [address] [place] [address] 02/27/2024 KYRIE BALLARD Prolapse of vaginal vault after hysterectomy N99.3 ; Rectocele N81.6 and Other specified noninflammatory disorders of vagina N89.8 [facility] [address] [facility] [address] [place] [address] 05/28/2024 KYRIE BALLARD Prolapse of vaginal vault [...] Coverage End Date [employer] [address] [place] [address] [phone] [id number] MARYLOU DOUGHERTY Self - patient is the [...]
--- OUTSIDE RECORDS SUMMARY | 2024-09-05 11:37 | XMS_ITS ---
Author Organization [facility] Address [address] [place] [address] Care Team Providers Care Azure Developer Name Role Phone Nancy Rene Primary Care Provider Bharathi Samson Unavailable [phone] Allergies Allergen (clinical drug ingredient) Drug/Non Drug [...] Ordered Date Performed Result Body Sit e 49492-SLDDOGQ NAIL, 6 OR MORE 06/25/2024 N/A 17170-Goqe Destruction, 1-14 06/25/2024 N/A 52074-JCOV SKIN LESIONS, OVER 4 06/25/2024 N/A Encounters Encounter Location Date Provider Diagnosis [facility] [address] [address] 06/25/2024 Bharathi Craft Atherosclerosis of [place] artery of both lower extremities, with unspecified presence of clinical manifestation I70.203 ; Tinea unguium B35.1 ; Pain in right toe(s) M79.674 ; Pain in left toe(s) M79.675 ; Plantar wart B07.0 and Pain in right foot M79.671 Assessments Encounter Date Diagnosis (ICD Code) Assessment Notes Treatment Notes Treatment Clinical Notes Section Notes 06/25/2024 Atherosclerosis of [place] artery of both lower extremities, with unspecified presence of clinical manifestation (ICD-10 - I70.203) 06/25/2024 Tinea unguium (ICD-10 - B35.1) 06/25/2024 Pain in right toe(s) (ICD-10 - M79.674) 06/25/2024 Pain in left toe(s) (ICD-10 - M79.675) 06/25/2024 Plantar wart (ICD-10 - B07.0) 06/25/2024 Pain in right foot (ICD-10 - M79.671) Plan Of Treatment Pending Test Test Name Order Date 22896-RLZODOQ NAIL, 6 OR MORE 06/25/2024 64152-Oddz Destruction, 1-14 06/25/2024 81460-JDUR SKIN LESIONS, OVER 4 06/25/20 24 Next Appt Details Follow Up: prn, Reason: Provider Name:Bharathi Craft , 09/24/2024 02:30:00 PM, [facility], [place] [address], [place], [address], Provider Name:Bharathi Craft , 11/05/2024 03:00:00 PM, [facility], [address] [facility], [place], [address], Procedure Notes * Category Sub-Category Detail Notes Wart Treatment Procedure Verruca, as desc ribed in exam, were debrided to pin-point bleeding margins with sterile 15 surgical blade, silver nitrate chemocautery applied, recomm. immune-boosting meds such as zinc, recomm. follow up with topical chemosurgical agents, Pt defers any other forms of tx - 82820 Debride Nail 6-10 Nail debridement Due to [...] use of a nail nipper and/or dremel-type rail grinder, to a more viable healthy nail [...] to maintain effectiveness in symptomatic relief - 34475 Keratoma Treatment Parring or Cutting o f [...] instrumentation by the physician of record - 24985, Q8 Progress Notes * FARHAT Olya ADOB:1940 (83 yo F)Acc No.[id number]:06/25/2024 Progress Notes Patient:?Olya HULL Provider:?Bharathi Craft DPM :1940???Age:83 Y???Sex:Female D ate:06/25/2024 Address:[address] [place], [place] [address] Pcp:Nancy Rene Subjective: * Chief Complaints: * [...] Assessment: 1.?Tinea unguium - B35.1???2 .?Atherosclerosis of [place] artery of both lower extremities, with unspecified presence of clinical manifestation - I70.203 (Primary)???3.?Pain in right toe(s) - M79.674???4.?Pain in left toe(s) - M79.675 ??5.?Plantar wart - B07.0???Specify :RIGHT???6.?Pain in right foot - M79.671??? Plan: * Treatment: 2.?Tinea unguium?Procedure: 99528-SEEFTBS NAIL, 6 OR MORE 3.?Plantar wart?Procedure: 07308-Oegw Destruction, 1-14 * Procedures:?Debride Nail 6-10:?Nail debridement?Due [...] use of a nail nipper and/or dremel-type rail grinder, to a more viable healthy nail [...] to maintain effectiveness in symptomatic relief - 33665.?Keratoma Treatment:?Parring or Cutting of Benign Hyperkeratotic Lesion(s)?(-57) [...] instrumentation by the physician of record - 95103, Q8.?Wart Treatment:?Procedure?Verruca, as described in exam, were debrided to pin-point bleeding margins with sterile 15 surgical blade, silver nitrate chemocautery applied, recomm. immune-boosting meds such as zinc, recomm. follow up with topical chemosurgical agents, Pt defers any other forms of tx - 78929.? * Procedure Codes:?22377 DEBRI DE NAIL, 6 OR MORE, Modifiers: XS 85854 Wart Destruction, 1-14, Modifiers: XS 74044 TRIM SKIN LESIONS, OVER 4, Modifiers: XS , Q8 * Preventive Medicine:? ??Counseling:?Tobacco use:?Patient counseled on the dangers of smoking and urged to quit:?06/25/2024 * Follow Up:?prn * Images: * Sign off status: Completed true * Provider:?Bharathi Craft DPM Date:?2023 Generated for Douglas paredes/Arun/Wilfredo on:?09/05/2024 11:37 AM EST History and Physical [...]
--- OUTSIDE RECORDS SUMMARY | 2024-09-05 11:37 | XMS_ITS ---
Author Organization [facility] Address [address] [facility] [address] [place] [address] Care Team Providers Care Healthcare Receptionist Name Role Phone RAFAELA WARREN, LAURO Primary Care Provider KYRIE Mi Unavailable [phone] Allergies No Known Allergies REASON FOR VISIT [...] 02/27/2024 Encounters Encounter Location Date Provider Diagnosis [address] [place] [address] 02/27/2024 KYRIE BALLARD Prolapse of vaginal vault [...] * MARYLOU DOUGHERTYDOB:[birth year] (83 yo F)Acc No.[id number]:02/27/2024 Progress Note Patient:?MARYLOU DOUGHERTY Provider:?KYRIE BALLARD MD :1940???Age:83 Y???Sex:Female D ate:02/27/2024 Address:[address] [place] [address] [address], , [place], [place] Pcp:LAURO RUSSO NP Subjective: * Chief Complaints: * ???3 month f/u * HPI: ???PONY RIDE ATTENDANT (Procedures/Surgeries):?Pessary Insertion Follow-up:?In today for follow-up of [...] urine.?Denies?Difficulty urinating.?Denies?Painful urination.? * Medical History:? * Circular Tank Cooper History:?/ Para?3/3.?Sexual activity?not currently sexually active.?Mammogram:?no further mammos, s/p bilateral mastectomy.?Abnormal Pap Smear:?CIN3 or cervical ca, s/p hyst age 29 for uterine ca. States vag paps WNL since.?LMP and menses?HENNY.?History of STD's:?None.?Hysterectomy:?age 29.?Colonoscopy?1 colonoscopy, declined further screening.?Bone Density:?osteoporosis followed by PCP. Last BMD 2019.?PONY RIDE ATTENDANT HISTORY MISC.?ring with support pessary 2.75mm for [...] Temp: 97.5 F. * Examination: ???Genitourinary: ?EXTERNAL GENITALIA:?External Genitalia:?normal ?VAGINA:?Vagina:?no cystocele, no lesions, no rectocele area of superficial erosion at apex on the right side, no active bleeding ?BLADDER:?Bladder:?no mass, nontender ?URETHRA:?Urethra:?no erythema or lesions present ?ANUS AND PERINEUM:?Anus/Perineum:?visually normal??? 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 Plan: * Treatment: * Procedure Codes:?94926 IRRIG ATION OF [id number] INSERT PESSARY/OTHER [id number] PESSARY NON RUBBER ANY TYPE * Follow Up:?3 Months (Reason: Pessary check) * Images: Billing Information: * Visit Code:? 96398 Office Visit, Est Pt., Level 3. * Procedure Codes:? 71813 IRRIGATION OF VAGINA. 90367 INSERT PESSARY/OTHER DEVICE. A4562 PESSARY NON RUBBER ANY TYPE. * Sign off status: Completed true * Provider:?KYRIE BALLARD MD Date:?2023 Generated for Douglas paredes/Arun/eTransmitting on:?09/05/2024 11:37 AM EST History and Physical Notes * HPI (History of Present Illness) Category Sub-Category Detail Notes Category Not es PONY RIDE ATTENDANT (Procedures/Surgerie s) Pessary Insertion Follow-up: In today [...]
--- OUTSIDE RECORDS SUMMARY | 2024-09-05 11:37 | XMS_ITS | Clinical Summary ---
Author Organization [facility] [address] [place] [address] [place] [address] Phone Care Team Providers Care Staff Air Defense Officer Name Role Phone Summer Ramírez MD Primary [...] Care Team Description 08/08/2024 Telephone Endocrinology - [place] [address] [place] [address] Avani Gill PA Prolia 06/08/2024 Telephone Endocrinology - [place] [address] [place] [address] Latoya Escobar [place] from Last 3 Months Surgical History Surgery [...] 1:00 PM EDT Office Visit Endocrinology - [place] [address] [place] [address] Avani Gill PA [address] [place] [address] Health Maintenance Due Date Last Done Comments [...] BMP Blood Test abstracted us Historical Provider MD HEALTH MAINTENANCE Final Result * DXA BONE [...] criteria. IMPRESSION: Osteoporosis by WHO criteria. The [facility] Department of Internal Medicine recommends using National [...] alternative screening schedule based on alla Jenkins., [facility] July 29, 2011 for patients with osteopenia [...] criteria. IMPRESSION: Osteoporosis by WHO criteria. The [facility] Department of Internal Medicine recommendsusing National Osteoporosis [...] alternative screening schedule based on alla Jenkins., NEJMJanuary 2011 for patients with osteopenia (based on hip BMD T-score) is as follows: * advanced osteopenia (T scores -2.00 to -2.49), BMD testing every year * moderate osteopenia (T scores -1.50 to -1.99), BMD testing every 5years mild osteopenia or normal BMD (T scores -1.50 and higher), BMD testingevery 15 years Avani HERRERA IMG DXA PROCEDURES Final Result from Last 3 Months or Most Recently Relevant to Health Maintenance Insurance [employer] Care Teams Staff Air Defense Officer Relationship Specialty Start Date End Date Summer Ramírez MD [address] [place] [address] PCP - General 03/01/24
--- OUTSIDE RECORDS SUMMARY | 2024-09-05 11:37 | XMS_ITS ---
Author Organization [facility] Address [address] [place] [address] Care Team Providers Care Editing Internship Name Role Phone Nancy Rene Primary Care Provider Bharathi Samson Unavailable [phone] Allergies Allergen (clinical drug ingredient) Drug/Non Drug [...] Ordered Date Performed Result Body Sit e 33876-Aazw Destruction, 1-14 05/14/2024 N/A Encounters Encounter Location Date Provider Diagnosis [facility] [address] [address] 05/14/2024 Bharathi Craft Plantar wart B07.0 and Pain in right foot M79.671 Assessments Encounter Date Diagnosis (ICD Code) Assessment Notes Treatment Notes Treatment Clinical Notes Section Notes 05/14/2024 Plantar wart (ICD-10 - B07.0) 05/14/2024 Pain in right foot (ICD-10 - M79.671) Plan Of Treatment Pending Test Test Name Order Date 54323-Mngh Destruction, 1-05/14/2024 Next Appt Details Follow Up: prn, Reason: Provider Name:Bharathi Craft , 09/24/2024 02:30:00 PM, [address] [place] [address], [address], Provider Name:Bharathi Craft , 11/05/2024 03:00:00 PM, [address] [place] [address], [phone], Procedure Notes * Category Sub-Category Detail Notes Wart Treatment Procedure Verruca were maria alejandra rided to pin-point bleeding margins with sterile 15 surgical blade, silver nitrate chemocautery applied, recomm. immune-boosting meds such as zinc, recomm. follow up with topical chemosurgical agents, recomm. Wartstick 40 percent Salicylic acid application under occlusion as directed, Pt defers any other forms of tx - 38049 Progress Notes * Olya HULL ADOB:1940 (83 yo F)Acc No.[id number]:05/14/2024 Progress Notes Patient:?Olya Hull A Provider:?Bharathi Craft DPM :1940???Age:83 Y???Sex:Female D ate:05/14/2024 Address:[address] [place] [address] Pcp:Nancy Rene Subjective: * Chief Complaints: * [...] defers any other forms of tx - 09554.? * Procedure Codes:?25032 Wart Destruction, 1-14 * Follow Up:?prn * [...]
--- OUTSIDE RECORDS SUMMARY | 2024-09-05 11:38 | XMS_ITS | Encounter Summary ---
Author Organization [facility] Address [address] [place] [address] Phone Care Team Providers Care [facility] Name Role Phone Nancy Rene NP Primary Care Provider Encounter Details Date Type Department Care Team (Late st Contact Info) Description 10/07/2020 Orders Only [facility] [address] [place] [address] Provider, MD Marie [address] [place] [address] Social History Tobacco Use Types Packs/Day [...] on filedocumented in this encounter Care Teams [facility] Relationship Specialty Start Date End Date Nancy Rene NP PCP - General 07/21/20 documented as of this encounter
--- OUTSIDE RECORDS SUMMARY | 2024-09-05 11:38 | XMS_ITS ---
Author Organization [email or web address] Address [address] [facility] [address] [place] [address] Care Team Providers Care Cheese Production Supervisor Name Role Phone RAFAELA WARREN, LAURO Primary Care Provider KYRIE Mi Unavailable [phone] Allergies No Known Allergies REASON FOR VISIT [...] 11/21/2023 Encounters Encounter Location Date Provider Diagnosis [facility] [email or web address] [place] [address] 11/21/2023 KYRIE BALLARD Other specified noninflammatory disorders [...] * MARYLOU DOUGHERTYDOB:[birth year] (83 yo F)Acc No.[id number]:11/21/2023 Progress Note Patient:?MARYLOU DOUGHERTY Provider:?KYRIE BALLARD MD :1940???Age:83 Y???Sex:Female D ate:11/21/2023 Address:[address] [place] [address] [address], , [place], [place] Pcp:LAURO RUSSO NP Subjective: * Chief Complaints: * ???PESSARY * HPI: ???TRANSPORTATION SERVICES REPRESENTATIVE (Procedures/Surgeries):?Pessary Insertion Follow-up:?In today for follow-up of [...] urine.?Denies?Difficulty urinating.?Denies?Painful urination.? * Medical History:? * Pulmonologist History:?/ Para?3/3.?Sexual activity?not currently sexually active.?Mammogram:?no further mammos, s/p bilateral mastectomy.?Abnormal Pap Smear:?CIN3 or cervical ca, s/p hyst age 29 for uterine ca. States vag paps WNL since.?LMP and menses?HENNY.?History of STD's:?None.?Hysterectomy:?age 29.?Colonoscopy?1 colonoscopy, declined further screening.?Bone Density:?osteoporosis followed by PCP. Last BMD 2019.?TRANSPORTATION SERVICES REPRESENTATIVE HISTORY MISC.?ring with support pessary 2.75mm for [...] Temp: 97.8 F. * Examination: ???Genitourinary: ?EXTERNAL GENITALIA:?External Genitalia:?normal ?VAGINA:?Vagina:?moderate excoriations of vaginal vault with granulation tissue - small amounts of bleeding. Area cauterized with silver nitrate. ?BLADDER:?Bladder:?no mass, nontender ?URETHRA:?Urethra:?no erythema or lesions present ?ADNEXA:?Adnexa:?no masses, no tenderness ?ANUS AND PERINEUM:?Anus/Perineum:?visually normal??? 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 Plan: * Treatment: * Procedure Codes:?13837 IRRIG ATION OF VAGINA * Follow Up:?3 Months (Reason: Pessary check) * Images: Billing Information: * Visit Code:? 67942 Office Visit, Est Pt., Level 3. * Procedure Codes:? 42186 IRRIGATION OF VAGINA. * Sign off status: Completed true * Provider:?KYRIE BALLARD MD Date:?2023 Generated for Manohari reggie/Arun/eTransmitting on:?09/05/2024 11:37 AM EST History and Physical Notes * HPI (History of Present Illness) Category Sub-Category Detail Notes Category Not es TRANSPORTATION SERVICES REPRESENTATIVE (Procedures/Surgerie s) Pessary Insertion Follow-up: In today [...]
== END 2024-09-05 10:26 | disposition home or self-care (01) ==
PROVIDERS: PCP Nurse Practitioner Gerontology; Visit Provider Hospitalist
DX: J43.2 Centrilobular emphysema (principal); R91.8 Other nonspecific abnormal finding of lung field; J96.11 Chronic respiratory failure with hypoxia; J18.0 Bronchopneumonia, unspecified organism; F17.200 Nicotine dependence, unspecified, uncomplicated
CPT/HCPCS: 99214; G2211

== ENCOUNTER → 2024-09-05 09:51 | Outpatient (BNVA) | payer MEDICARE, SELFPAY | PROVIDERS: PCP Nurse Practitioner Gerontology; Visit Provider Hospitalist | DX: J43.2 Centrilobular emphysema (principal); J96.11 Chronic respiratory failure with hypoxia; R91.8 Other nonspecific abnormal finding of lung field; J18.0 Bronchopneumonia, unspecified organism; F17.210 Nicotine dependence, cigarettes, uncomplicated | CPT/HCPCS: 99212 ==

== ENCOUNTER 2024-11-22 13:12 | Outpatient (AMB) | payer MEDICARE, SELFPAY ==
--- NOTE | 2024-11-22 13:14 | A.OFFVIS_ITS ---
Vital Signs 11/22/24 13:15 Height 5 ft 1 in BMI Reason not done Patient refused/unable BP 120/68 Blood Pressure Location Lt brachial Position Sitting Pulse 68 Pulse Source Pulse Oximeter Pulse Oximetry (%) 93 Oxygen Delivery Method Nasal Cannula Oxygen Flow Rate 2 Intake Visit Reasons: Pulmonary Nodules Belt Sander Required: No Belt Sander Services: Belt Sander Offered & Declined Allergies No Known Allergies Allergy (Verified 11/22/24 13:17) HPI Comments Details: The patient is an 84 year woman with a known history of advanced emphysema COPD and chronic respiratory failure. She does get oxygen from [email or web address]. She does have a portable oxygen concentrator that she uses the 4 L pulse with activity. She also sleeps with the oxygen at home at 4 L. the family is wondering if she is using too much oxygen. Will plan to do an overnight oximetry to assess that. In addition to that she does use Wixela and Spiriva with good effect. She still has a cough chest congestion. She has not interested in any additional medications at this time. Because of the chronic bronchitis component I do believe that a Acapella valve will be helpful for chest PT. I did instruct her how to use it and will request 1 from a [employer] company, [email or web address]. The patient also has multiple pulmonary nodules. She has been followed mostly by a inspector and hand packager in the area for many years. She has had CT scans every 6 months. Some of the nodules have been increasing in size. Back in June 2023 she had a PET scan at [facility] and then subsequently repeat CT scan at the [facility]. I did personally review the CT scan. Appears that some of the nodules are spiculated appearance and some of them are larger in size measuring little more than a cm in size. Although she does have extensive emphysema and she does require significant oxygen so therefore any kind of biopsy for the patient will be very high risk and may not be worthwhile. We did talk about following the nodules closely and we can also consider stereotactic radiation if needed. But even that will be difficult. The patient also has a very limited movement of her left shoulder because of a torn rotator coughing that also limits and positioning for any kind of procedures. Apparently she did try to get a biopsy of the pulmonary nodules in the past but she could not position herself because of significant pain from the left shoulder. 05/07/2024 the patient is here for a pulmonary follow-up visit. The patient overall has been doing better. She does complain of a cough productive in nature with yellow sputum. She has been noticing this for the last few weeks. She does not feel sick like she has not had any fevers. Although the daughter has noticed that his energy level has been a little lower. She continues with the inhalers as prescribed. She did get the Acapella valve and she is using it several times a day and that is helping with the expectorations. We did follow- up with a CT scan of the chest that she had at [facility] demonstrating interval worsening of airspace disease in the right upper lobe right middle lobe and right lower lobe area appears to be more consistent with infection. In addition to that she has other pulmonary nodules that are being followed. His hard to know if this airspace disease is related to malignant process or if it is infectious. I do believe it is more infectious at this time. The patient is with her daughter they are concerned about unnecessary antibiotics. I did recommend a course of doxycycline. While we were able to do is get a sputum culture and I will send to the laboratory right now. Hopefully we can get a speciation of an organism. If we can at least identify an organism within treated more effectively. If she worsens then she will call and we can place her on empiric antibiotics specially if the sputum is not helpful. Will plan to repeat an x-ray with the next visit in 3-4 months. 09/05/2024 the patient is here for a pulmonary follow-up visit. She still struggling with a cough. Chest congestion moderate severity. Sometimes difficult to expectorate. She has been using her nebulizer 3 times week followed by the Acapella valve. She does have help from her family since she has had issues with her left arm. She still can set up her nebulizer though. She has a hard time with her inhalers. Her only has Wixela and Spiriva at home that she uses. However, she does need help with those inhalers. We did talk about switching over to Trelegy to make it just once a day get all the medicines at once but right now she has plenty of supplies will wait for her to run out and then order Trelegy. We also talked about other potential medications such as phosphodiesterase 4 inhibitors via nebulizer. In addition to we can start her on azithromycin. 3 times a week. The patient has had a sputum culture with Pseudomonas also Haemophilus and Moraxella. Therefore significant congestion and polymicrobial disease. Unfortunately she continues to smoke cigarettes making her airways more prone to infections and mucus production. The patient does not want to quit. She understands cigarettes are taken away from her quality of life. In the meantime will start her on the azithromycin and will have her come back in about 2-3 months to we can readdress her medication changes. She will have an EKG done then the coming weeks to make sure she is tolerating the azithromycin. 11/22/2024 the patient is here for a pulmonary follow-up visit. She continues to have difficulties with her cough and chest congestion. She has chronic bronchitis with supportive airway disease. Significant bacterial colonization. She had been on the azithromycin 3 times a week but then switch to Levaquin recently for Pseudomonas empiric treatment. She seems to be doing better although still coughing up some phlegm. Her lungs actually sound pretty clear though diminished. Although diminished more on the right than the left. Will have her get an x-ray today. She continues use the oxygen good effect. She continues using nebulized therapy as prescribed. Will go ahead and optimize her treatment by switching over to Trelegy inhaler with the hopes that she can have better adherence and better efficacy. [facility] Medical History (Updated 09/05/24 @ 13:02 by Turner Hartman MD) Tobacco dependence Bronchopneumonia Chronic respiratory failure Pulmonary nodules Vaginal wall prolapse Spinal stenosis Rectocele Pulmonary emphysema Prediabetes Osteoporosis On home oxygen therapy Low back pain HTN (hypertension) Coronary atherosclerosis COPD (chronic obstructive pulmonary disease) Bursitis of hip Aortic valve stenosis Adrenal adenoma Surgical History H/O: hysterectomy H/O mastectomy Family History Mother Breast cancer Social History Alcohol intake: current Alcohol intake frequency: holidays/special occasions only Patient Tobacco Use Status: Current everyday Tobacco user Cigarettes Per Day: 3 Review of Systems Const Denies chills, Denies fatigue, Denies fever(s), Denies weight gain and Denies weight loss ENT Denies dizziness Card Denies chest pain, Denies leg edema, Denies lightheadedness, Denies palpitations, Reports dyspnea on exertion, Denies orthopnea and Denies other Resp Reports chest congestion, Reports cough, Reports dyspnea on exertion and Reports wheezing GI Denies hematochezia and Denies change in stool character Musc Reports as per HPI, Reports abnormal gait, Reports muscle weakness, Reports numbness, Reports radiating pain into limb and Reports tingling Skin/Breast Denies rash Neuro Reports abnormal gait, Denies dizziness, Reports numbness and Reports tingling Endo Denies fatigue and Denies palpitations Aller/Immun Reports wheezing Physical Exam Vital Signs: Last Vital Signs Pulse 68 11/22/24 13:15 BP 120/68 11/22/24 13:15 Pulse Ox 93 11/22/24 13:15 Oxygen Delivery Method Nasal Cannula 11/22/24 13:15 Oxygen Flow Rate 2 11/22/24 13:15 Const General: comfortable and alert Nutritional Appearance: thin HEENT Head: Yes normocephalic Neck Neck: Yes supple Chest Chest palpation & inspection: normal inspection of the chest Resp Effort & Inspection: normal respiratory effort and Actively coughing Quality: productive Auscultation: diminished lung sounds Cardio Heart sounds: S1 normal heart sound present, S2 normal heart sound present and Murmur heart sound present GI Palpation (GI): Soft to palpation Skin General skin exam: no rashes or lesions noted Extrem General: Yes no clubbing, cyanosis or edema Assessment & Plan Assessment & Plan (1) COPD (chronic obstructive pulmonary disease): Code(s): J44.9 - Chronic obstructive pulmonary disease, unspecified Category: Medical Qualifiers: COPD type: emphysema Emphysema type: centrilobular Qualified Code(s): J43.2 - Centrilobular emphysema (2) Pulmonary nodules: Code(s): R91.8 - Other nonspecific abnormal finding of lung field Category: Medical (3) Chronic respiratory failure: Code(s): J96.10 - Chronic respiratory failure, unspecified whether with hypoxia or hypercapnia Category: Medical Qualifiers: Respiratory failure complication: hypoxia Qualified Code(s): J96.11 - Chronic respiratory failure with hypoxia (4) Bronchopneumonia: Code(s): J18.0 - Bronchopneumonia, unspecified organism Category: Medical (5) Tobacco dependence: Code(s): F17.200 - Nicotine dependence, unspecified, uncomplicated Category: Medical Plan stop Wixela stop Spiriva strat Trelegy ROSA MARIA as needed Azithromycin MWF conitnue oxygen supplementation: 2L/pulse at rest, 4L/pulse with activity, 4L/min with sleep CXR tobacco cessation F/U 3-4 months Orders: Orders XR chest 2V Today J18.0 - Bronchopneumonia, unspecified organism Medications: New tpuczccqueb-pljvluhdk-wvvyomhk 200-62.5-25 mcg (Trelegy Ellipta) 1 inh inhalation DAILY 60 ea 12RF 30 days Coding Level of Care Code Est Pt Level 4 (76819) Complex EM visit Add On G2211 Diagnoses Centrilobular emphysema J43.2 COPD type: emphysema Emphysema type: centrilobular Pulmonary nodules R91.8 Chronic respiratory failure with hypoxia J96.11 Respiratory failure complication: hypoxia Bronchopneumonia J18.0 Tobacco dependence F17.200 Time Spent (min) 17
[2024-11-22 13:15] VITALS: BP 120/68; PULSE 68; O2SAT 93
--- OUTSIDE RECORDS SUMMARY | 2024-11-22 13:47 | XMS_ITS ---
[facility] Address [address] [place] [address] Care Team Providers Care Cigar Wrapper Name Role Phone Nancy Rene Primary Care Provider Bharathi Samson Unavailable [phone] Allergies Allergen (clinical drug ingredient) Drug/Non Drug Allergy documented on EMR Reaction Allergy Type Onset Date Status Seasonale Unknown Drug Allergy Active REASON FOR VISIT Wart(s) Medications Medication SIG (Take, Route, Frequency, Duration) Notes Start Date End Date Status Prolia Active Albuterol Sulfate Ac tive Albuterol Sulfate 108 (90 Base) MCG/ACT 1 puff as needed Inhalation Three times a day Active Calcium & Magnesium Carbonates Active Advair Diskus 250-50 MCG/DOSE Inhalation for 90 Active Estradiol Estrogen Ring Active levoFLOXacin Active Alendronate Sodium N ot-Taking Cephalexin 500 MG 1 capsule Orally every 8 hrs for 10 day(s) Not-Taking Vagifem 10 MCG Vaginal for 84 Not-Taking Memantine HCl Not-Ta serene Lidocaine 5 % 1 application to affected area as needed Externally to effected areas on feet Three times a day for 30 days 04/04/2019 Not-Taking Fish Oil 1000 MG 1 capsule Orally Once a day Not-Taking Lisinopril-hydroCHLOR Othiazide 20-12.5 MG Oral for 90 Not-Tc ing Albuterol Not-Taking aspirin baby Not-Tc ing Vitamin K2-Vitamin D3 Not-Taking Vitamin D3 Not-Takin g Calcium w/ mag, zinc Not-Tc ing ProAir HFA 108 (90 Base) MCG/ACT Inhalation for 25 Not-Takin g Spiriva HandiHaler 18 MCG Inhalation for 90 Active Tylenol Active Vitamin D 1000 UNIT 1 tablet Orally Once a day Active Wixela Inhub Active Vitamin C Active Multivitamin Active oxygen Active Fluticasone Propionate Active Isosorbide Mononitrate Active Atorvastatin Calcium Active Social History Tobacco Use: Social History Observation Description Date Details (start date - stop date) Current Smoker 09/14/2024 - NA Tobacco use other than smoking: Question Answer Notes Are you an other tobacco user? No Tobacco Control (Standard) Question Answer Notes Tobacco use: Current smoker When did you start smoking? 09/14/2024 How often do you smoke cigarettes? Every day How many cigarettes a day do you smoke? 5 or les s How soon after you wake up do you smoke your fir st cigarette? After 60 minutes Are you interested in quitting? Ready to quit Additional Findings: Tobacco non-user Current no nsmoker Vital Signs Height 5 ft 1 in in 11/05/2024 Weight 115 lbs 11/05/2024 BMI 21.73 kg/m2 11/05/2024 Procedures Procedure Date Ordered Date Performed Result Body Sit e 72767-Widw Destruction, -11/05/2024 N/A Encounters Encounter Location Date Provider Diagnosis [facility] [address] [id number] 11/05/2024 Bharathi Craft Plantar wart B07.0 and Pain in right foot M79.671 Assessments Encounter Date Diagnosis (ICD Code) Assessment Notes Treatment Notes Treatment Clinical Notes Section Notes 11/05/2024 Plantar wart (ICD-10 - B07.0) 11/05/2024 Pain in right foot (ICD-10 - M79.671) Plan Of Treatment Pending Test Test Name Order Date 81310-Rxpj Destruction, -11/05/2024 Next Appt Details Follow Up: prn, Reason: Provider Name:Bharathi Craft , 12/17/2024 10:45:00 AM, [address] [place] [address], [id number], Provider Name:Bharathi Craft , 01/30/2025 02:00:00 PM, [address] [place] [address], [phone], Procedure Notes * Category Sub-Category Detail Notes Wart Treatment Procedure Verruca were maria alejandra rided to pin-point bleeding margins with sterile 15 surgical blade, silver nitrate chemocautery applied, recomm. immune-boosting meds such as zinc, recomm. follow up with topical chemosurgical agents, recomm. Wartstick 40 percent Salicylic acid application under occlusion as directed, Pt defers any other forms of tx - 70708 Progress Notes * Olya HULL ADOB:1940 (84 yo F)Acc No.[id number]:11/05/2024 Progress Notes Patient:?Olya HULL A Provider:?Bharathi Craft DPM :1940???Age:84 Y???Sex:Female D ate:11/05/2024 Address:[address] [place], [place] [id number] Pcp:Nancy Rene Subjective: * Chief Complaints: * ???Wart(s) * HPI: ???Wart:?Pt States Last PCP Visit:?Date:?06/25/2024 ?Misc:?Pt accompanied by, Daughter,DULCE, who is physically present in exam room at time of visit.? * ROS:?General/Constitutional:?Nausea?denies.?Vomiting?denies.?Hunger Thirst?denies.?Loss appetite?denies.?Chills?denies.?Fatigue?denies.?Fever?denies.?Night Sweats?denies.?Unexplained weight loss?denies.?Ophthalmologic:?Blurred [...] (Standard)?Tobacco use:?Current smoker ?When did you start smoking??09/14/2024 ?How often do you smoke cigarettes??Every day ?How many cigarettes a day do you smoke??5 or less ?How soon after you wake up do you smoke your first cigarette??After 60 minutes ?Are you interested in quitting??Ready to quit ?Additional Findings: Tobacco non-user?Current nonsmoker ???Drugs/Alcohol:?Drugs?Have you used drugs other than those for medical reasons in the past 12 months??No ???Miscellaneous:?Caffeine: yes, frequency:. ?Children: yes. ?Exercise: no. [...] Wixela Inhub Not-Taking/PRNCalcium , Notes to Pharmacist: ivana garg zincProAir HFA 108 (90 Base) MCG/ACT Aerosol [...] the patientNot-Taking/PRN Calcium , Notes to Pharmacist: chiara calleNot-Taking/PRN ProAir HFA 108 (90 Base) MCG/ACT Aerosol [...] 1 15, BMI: 21.73, Shoe size: 8.5, Wt-k.16 kg. * Examination: ???Dermatologic: ?VERRUCA:?STILL, Reveals a Single , multi-loculated , mosaic-patterned, [...] defers any other forms of tx - 26441.? * Procedure Codes:?05054 Wart Destruction, 1-14 * Preventive Medicine:? ??Counseling:?Tobacco use:?Patient counseled on the dangers of smoking and urged to quit:?08/09/2024 * Follow Up:?prn * Images: * Sign off status: Completed true * Provider:?Bharathi Craft DPM Date:?2024 Generated for Douglas paredes/Arun/Jose Manuelsmitting on:?11/22/2024 01:47 PM EDT History and Physical Notes * HPI (History of Present Illness) Category Sub-Category Detail Notes Category Not es Wart Misc: Pt accompanied b y, Daughter, DULCE, who is physically present in exam room at time of visit Pt States Last PCP Visit: Date:: 06/25/2024 Examination Category Sub-Category Detail Notes Category Not es Dermatologic VERRUCA: STILL, Reveals a Single , multi-loculated , mosaic-patterned, round, raised, flat-topped, petechial bleeding papule(s), with cauliflower appearance and interruption of skin lines, pain to lateral compression, and size estimated at 5mm diameter , plantar Forefoot , RIGHT
--- OUTSIDE RECORDS SUMMARY | 2024-11-22 13:47 | XMS_ITS | Patient Health Record ---
Author Organization [facility] Address [address] [place] [address] Care Team Providers Care Intelligence Manager Name Role Phone Nancy Rene Primary Care Provider Bharathi Samson Unavailable [phone] Carlos Horton Unavailable [phone] Allergies Allergen (clinical drug ingredient) Drug/Non Drug Allergy documented on EMR Reaction Allergy Type Onset Date Status Seasonale Unknown Drug Allergy Active Reason For Referral Diagnosis 1 Pain in right foot ( M79.671) Diagnosis 2 Plantar wart (B07.0) Diagnosis 3 Pain in left foot (M 79.672) Diagnosis 4 Tinea unguium (B35.1 ) Diagnosis 5 Pain in left toe(s) (M79.675) Diagnosis 6 Pain in right toe(s) (M79.674) Diagnosis 7 Ingrowing nail (L60. 0) Diagnosis 8 Atherosclerosis of n ative artery of both lower extremities, with unspecified presence of clinical manifestation (I70.203) Diagnosis 9 Non-pressure chronic ulcer of other part of left foot limited to breakdown of skin (L97.521) Diagnosis 10 Other viral warts (B 07.8) Diagnosis 11 Metatarsalgia (726.7 0) Referring Provider First Name Summer Referring Provider Last Name Desiree Referred Organization [facility] Referred Provider Bharathi Craft Referred Address [address] [facility],[address],[place], [place],[address],[place] Referred Provider Specialty Podiatry Referral Priority Routine Medications Medication SIG (Take, Route, Frequency, Duration) Notes Start Date End Date Status Spiriva HandiHaler 18 MCG Inhalation for 90 Active Tylenol Active Multivitamin Active oxygen Active Fluticasone Propionate Active Isosorbide Mononitrate Active Albuterol Sulfate Ac tive Alendronate Sodium N ot-Taking Atorvastatin Calcium Active Cephalexin 500 MG 1 capsule Orally every 8 hrs for 10 day(s) Not-Taking Vitamin C Active Lisinopril-hydroCHLOR Othiazide 20-12.5 MG Oral for 90 Not-Tc ing Albuterol Sulfate 108 (90 Base) MCG/ACT 1 puff as needed Inhalation Three times a day Active Vagifem 10 MCG Vaginal for 84 Not-Taking Albuterol Not-Taking Estradiol Estrogen Ring Active Memantine HCl Not-Ta serene Prolia Active Lidocaine 5 % 1 application to affected area as needed Externally to effected areas on feet Three times a day for 30 days 04/04/2019 Not-Taking aspirin baby Not-Tc ing levoFLOXacin Active Fish Oil 1000 MG 1 capsule Orally Once a day Not-Taking Vitamin K2-Vitamin D3 Not-Taking Vitamin D3 Not-Takin g Calcium w/ mag, zinc Not-Tc ing ProAir HFA 108 (90 Base) MCG/ACT Inhalation for 25 Not-Takin g Calcium & Magnesium Carbonates Active Advair Diskus 250-50 MCG/DOSE Inhalation for 90 Active Vitamin D 1000 UNIT 1 tablet Orally Once a day Active Wixela Inhub Active Immunizations Vaccine Route Administration Date Status Comme nts COVID-19 Moderna Vaccine Unknown 08/21/2020 Administere d COVID-19 Moderna Vaccine Unknown 09/18/2020 Administere d Influenza Unknown 02/13/2018 Administered Influenza Unknown 04/09/2019 Administered Social History Tobacco Use: Social History Observation [...] Additional Findings: Tobacco non-user Current no nsmoker AUDIT-C (Standard) Question Answer Notes Did you have a drink containing alcohol in the p ast year? No Points 0 Interpretation Negative Problems Problem Type SNOMED Code ICD Code Onset Dates Problem Status W/U Status Risk Notes Problem Plantar wart (26024458) Plantar wart (B07.0) Active confirmed Chronic Problem Atherosclerosis of ak chin arteries of the extremities ([id number]) Atherosclerosis of ak chin artery of both lower extremities, with unspecified presence of clinical manifestation (I70.203) Active confirmed Vital Signs Blood pressure diastolic 60 mm Hg 09/24/2024 Height 5 ft 1 in in 11/05/2024 Blood pressure systolic 121 mm Hg 09/24/2024 Weight 115 lbs 11/05/2024 BMI 21.73 kg/m2 11/05/2024 Procedures Procedure Date Ordered Date Performed Result Body Sit e 10930-VNZLPAS NAIL, 6 OR MORE 12/28/2023 N/A 74137-Omua Destruction, 1-14 12/28/2023 N/A 16673-Lcqlxyhe Plate 12/28/2023 N/A 46161-HAJX SKIN LESIONS, OVER 4 12/28/2023 N/A 19628-Bzqv Destruction, 1-14 02/09/2024 N/A 84568-UNAMEAC NAIL, 6 OR MORE 03/26/2024 N/A 65891-Xwxh Destruction, 1-14 03/26/2024 N/A 98231-ZIET SKIN LESIONS, OVER 4 03/26/2024 N/A 01782-Cwns Destruction, 1-14 05/14/2024 N/A 10831-ZBEKYGP NAIL, 6 OR MORE 06/25/2024 N/A 00925-Epfk Destruction, 1-14 06/25/2024 N/A 76484-VKWA SKIN LESIONS, OVER 4 06/25/2024 N/A 00559-Humf Destruction, 1-14 08/09/2024 N/A 17098-HWZMWEX NAIL, 6 OR MORE 09/24/2024 N/A 53963-Yncr Destruction, 1-14 09/24/2024 N/A 72003-YCVW SKIN LESIONS, OVER 4 09/24/2024 N/A 29580-Zsaj Destruction, 1-14 11/05/2024 N/A Encounters Encounter Location Date Provider Diagnosis [facility] [address] [address] 12/28/2023 Bharathi Craft Atherosclerosis of ak chin artery of both lower extremities, with unspecified presence of clinical manifestation I70.203 ; Ingrowing nail L60.0 ; Tinea unguium B35.1 ; Pain in right toe(s) M79.674 ; Pain in left toe(s) M79.675 ; Plantar wart B07.0 and Pain in right foot M79.671 [facility] [address] [address] 02/09/2024 Bharathivijay MagdalenoVenancio Plantar wart B07.0 a nd Pain in right foot M79.[address] [address] 03/26/2024 Bharathi Venancio Atherosclerosis of ak chin artery of both lower extremities, with unspecified presence of clinical manifestation I70.203 ; Tinea unguium B35.1 ; Pain in right toe(s) M79.674 ; Pain in left toe(s) M79.675 ; Plantar wart B07.0 and Pain in right foot M79.[address] [address] 05/14/2024 Bharathi Venancio Plantar wart B07.0 a nd Pain in right foot M79.[address] [address] 06/25/2024 Bharathi Venancio Atherosclerosis of ak chin artery of both lower extremities, with unspecified presence of clinical manifestation I70.203 ; Tinea unguium B35.1 ; Pain in right toe(s) M79.674 ; Pain in left toe(s) M79.675 ; Plantar wart B07.0 and Pain in right foot M79.[address] [address] 08/09/2024 Bharathi Venancio Plantar wart B07.0 a nd Pain in right foot M79.[address] [address] 09/24/2024 Bharathi Venancio Atherosclerosis of ak chin artery of both lower extremities, with unspecified presence of clinical manifestation I70.203 ; Tinea unguium B35.1 ; Pain in right toe(s) M79.674 ; Pain in left toe(s) M79.675 ; Plantar wart B07.0 and Pain in right foot M79.671 [facility] [place] [address] [address] 11/05/2024 Bharathi Craft Plantar wart B07.0 a nd Pain in right foot M79.671 Assessments Encounter Date Diagnosis (ICD Code) Assessment Notes Treatment Notes Treatment Clinical Notes Section Notes 12/28/2023 Ingrowing nail (ICD-10 - L60.0) 12/28/2023 Atherosclerosis of ak chin artery of both lower extremities, with unspecified presence of clinical manifestation (ICD-10 - I70.203) 02/09/2024 Pain in right foot (ICD-10 - M79.671) 02/09/2024 Plantar wart (ICD-10 - B07.0) 03/26/2024 Tinea unguium (ICD-10 - B35.1) 03/26/2024 Atherosclerosis of ak chin artery of both lower extremities, with unspecified presence of clinical manifestation (ICD-10 - I70.203) 05/14/2024 Pain in right foot (ICD-10 - M79.671) 05/14/2024 Plantar wart (ICD-10 - B07.0) 06/25/2024 Tinea unguium (ICD-10 - B35.1) 06/25/2024 Atherosclerosis of ak chin artery of both lower extremities, with unspecified presence of clinical manifestation (ICD-10 - I70.203) 08/09/2024 Pain in right foot (ICD-10 - M79.671) 08/09/2024 Plantar wart (ICD-10 - B07.0) 09/24/2024 Tinea unguium (ICD-10 - B35.1) 09/24/2024 Atherosclerosis of ak chin artery of both lower extremities, with unspecified presence of clinical manifestation (ICD-10 - I70.203) 11/05/2024 Pain in right foot (ICD-10 - M79.671) 11/05/2024 Plantar wart (ICD-10 - B07.0) 09/24/2024 Pain in right toe(s) (ICD-10 - M79.674) 06/25/2024 Pain in right toe(s) (ICD-10 - M79.674) 03/26/2024 Pain in right toe(s) (ICD-10 - M79.674) 12/28/2023 Tinea unguium (ICD-10 - B35.1) 12/28/2023 Pain in right toe(s) (ICD-10 - M79.674) 03/26/2024 Pain in left toe(s) (ICD-10 - M79.675) 06/25/2024 Pain in left toe(s) (ICD-10 - M79.675) 09/24/2024 Pain in left toe(s) (ICD-10 - M79.675) 09/24/2024 Plantar wart (ICD-10 - B07.0) 06/25/2024 Plantar wart (ICD-10 - B07.0) 03/26/2024 Plantar wart (ICD-10 - B07.0) 12/28/2023 Pain in left toe(s) (ICD-10 - M79.675) 12/28/2023 Plantar wart (ICD-10 - B07.0) 03/26/2024 Pain in right foot (ICD-10 - M79.671) 06/25/2024 Pain in right foot (ICD-10 - M79.671) 09/24/2024 Pain in right foot (ICD-10 - M79.671) 12/28/2023 Pain in right foot (ICD-10 - M79.671) Plan Of Treatment Pending Test Test Name Order Date 26601-DPAHEVL NAIL, 6 OR MORE 02/07/2014 09574-LZRRNCD NAIL, 6 OR MORE 05/09/2014 95828-MKCXHRG NAIL, 6 OR MORE 11/11/2014 41627-DVZBYXH NAIL, 6 OR MORE 02/10/2015 49755-NEDZGWA NAIL, 6 OR MORE 05/12/2015 08853-GIVTIHK NAIL, 6 OR MORE 01/26/2016 47620-ANDURDI NAIL, 6 OR MORE 04/26/2016 39174-ISRZLOO NAIL, 6 OR MORE 11/04/2016 79787-VNSHBTV NAIL, 6 OR MORE 02/03/2017 44081-TKGGOMX NAIL, 6 OR MORE 05/05/2017 30439-SLGZXWN NAIL, 6 OR MORE 08/04/2017 54743-ODURVNZ NAIL, 6 OR MORE 10/26/2017 02335-ICCTFVF NAIL, 6 OR MORE 01/23/2018 91139-XRYCAWR NAIL, 6 OR MORE 04/24/2018 83045-ACNORAB NAIL, 6 OR MORE 07/27/2018 01835-CUTELLG NAIL, 6 OR MORE 10/04/2018 46704-DGAAPSE NAIL, 6 OR MORE 12/14/2018 71479-NGEGTIT NAIL, 6 OR MORE 05/03/2019 25360-HIXWCPQ NAIL, 6 OR MORE 02/22/2019 91195-KJZRFGQ NAIL, 6 OR MORE 07/23/2019 84088-HUPLBWW NAIL, 6 OR MORE 10/03/2019 44999-SHEEMOW NAIL, 6 OR MORE 12/12/2019 84110-ZCYKGKF NAIL, 6 OR MORE 05/09/2020 23052-RXLGPNS NAIL, 6 OR MORE 07/30/2020 79490-TMVGRTE NAIL, 6 OR MORE 10/06/2020 34376-KCLWDAH NAIL, 6 OR MORE 02/14/2020 13767-INWLQNN NAIL, 6 OR MORE 12/18/2020 57156-FJJQNJB NAIL, 6 OR MORE 02/25/2021 58299-UGICKHZ NAIL, 6 OR MORE 05/07/2021 84822-DDACPAJ NAIL, 6 OR MORE 07/16/2021 35571-FOIZSMO NAIL, 6 OR MORE 09/24/2021 57320-KAQYCRQ NAIL, 6 OR MORE 01/13/2022 47535-XZGZHTI NAIL, 6 OR MORE 10/24/2023 61210-BYSNATP NAIL, 6 OR MORE 12/28/2023 74520-FOTVJFK NAIL, 6 OR MORE 03/26/2024 53620-JUHHJHP NAIL, 6 OR MORE 06/25/2024 74963-QKWCTQP NAIL, 6 OR MORE 09/24/2024 00621-Srlx Destruction, 1-14 09/24/2024 20251-Yoqg Destruction, 1-14 08/09/2024 52543-Xpmj Destruction, 1-14 11/05/2024 23489-Vreb Destruction, 1-14 06/25/2024 95184-Fuht Destruction, 07-2402/09/2024 95628-Lgmj Destruction, 07-2405/14/2024 28155-Ogbg Destruction, 07-2403/26/2024 79466-Pcmi Destruction, 07-2404/10/2020 17643-Xhcu Destruction, 07-2410/15/2021 22720-Hfjr Destruction, 07-2412/28/2023 21678-Nbpo Destruction, 07-2410/24/2023 96886-Kyvw Destruction, 07-2401/13/2022 32324-Ujur Destruction, 07-2409/24/2021 18372-Kafz Destruction, 07-2407/16/2021 03748-Ylos Destruction, 07-2408/03/2021 43294-Ltjp Destruction, 07-2409/03/2021 13736-Wpyy Destruction, 07-2406/10/2021 12616-Ijmh Destruction, 07-2406/25/2021 83300-Ckhw Destruction, 07-2405/07/2021 96194-Kntq Destruction, 07-2402/25/2021 56222-Vqes Destruction, 07-2404/02/2021 78185-Loqr Destruction, 07-2412/18/2020 33477-Rdcp Destruction, 07-2401/08/2021 09761-Fdeu Destruction, 07-2401/22/2021 67516-Pwrz Destruction, 07-2402/12/2021 16895-Edmo Destruction, 07-2402/14/2020 88419-Sbhd Destruction, 07-2410/06/2020 69828-Kpnm Destruction, 07-2410/27/2020 04412-Mgkx Destruction, 07-2411/24/2020 31939-Iank Destruction, 07-2407/30/2020 99398-Mdwg Destruction, 07-2408/20/2020 49113-Bgon Destruction, 07-2409/15/2020 44687-Niav Destruction, 14 05/09/2020 58769-Lhvw Destruction, 07-2405/29/2020 12866-Ynxo Destruction, 07-2406/23/2020 35423-Dqed Destruction, 07-2412/12/2019 73051-Dwol Destruction, 07-2401/02/2020 57553-Udhs Destruction, 07-2401/16/2020 87626-Bxnp Destruction, 07-2410/03/2019 13604-Ijmm Destruction, 07-2410/29/2019 88146-Dzgm Destruction, 07-2411/21/2019 32530-Urzs Destruction, 07-2407/23/2019 70092-Zwgx Destruction, 07-2408/16/2019 61939-Mzmy Destruction, 07-2409/06/2019 90626-Bxvk Destruction, 07-2402/22/2019 51304-Fwvz Destruction, 07-2404/02/2019 59301-Ngvr Destruction, 07-2407/27/2018 00238-Fakv Destruction, 07-2406/20/2019 28483-Spur Destruction, 07-2405/03/2019 67807-Aowc Destruction, 07-2405/24/2019 85781-Eemd Destruction, 07-2412/14/2018 18985-Gcke Destruction, 07-2401/25/2019 96574-Knhw Destruction, 07-2410/04/2018 23659-Vzzm Destruction, 07-2411/08/2018 96509-Woeb Destruction, 07-2408/31/2018 62041-Bsda Destruction, 07-2401/23/2018 68184-Jbdi Destruction, 07-2404/24/2018 46331-Uhzc Destruction, 07-2405/05/2017 77834-Ekua Destruction, 07-2410/26/2017 92167-Bbeg Destruction, 07-2408/04/2017 94290-Lkib Destruction, 07-2402/03/2017 15819-Yljk Destruction, 07-2405/12/2015 23560-Ojkc Destruction, 07-2402/07/2014 63845-Zssj Destruction, 07-2402/10/2015 45523-Nimf Destruction, 07-2411/11/2014 74800-Zcsy Destruction, 07-2405/09/2014 23435-Hugfqyta Plate 11/11/2014 15768-Osgkqfqp Plate 02/10/2015 96069-Iipmrsyw Plate 05/12/2015 41658-Wwdflgqa Plate 05/09/2014 16887-Qdurprmr Plate 01/26/2016 12829-Iugpufai Plate 10/26/2017 68419-Hcnagfnp Plate 01/23/2018 85573-Jeqsllzr Plate 07/27/2018 13726-Tzfosuht Plate 06/20/2019 91718-Yzrpnhfz Plate 12/18/2020 36851-Ihcpddhp Plate 02/25/2021 32722-Nzrryblz Plate 05/07/2021 48082-Ukeczfds Plate 07/16/2021 84980-Wdpllnoo Plate 09/24/2021 94774-Ugkfyiev Plate 01/13/2022 84431-Xxpdbpjk Plate 10/24/2023 82833-Gppmbkaz Plate 12/28/2023 05463-Sjhjrbbu Plate Each Additional 12/2021 94433-Yuroggmc Plate Each Additional 20474-Jgpoaxnb Plate Each Additional 12/2021 29931-Zgnuvpps Plate Each Additional 87493-Hqqsoscr Plate Each Additional 62344-Zjiozdcu Plate Each Additional 08/2014 30587-Ceguaqro Plate Each Additional 78501-Baqlnfho Plate Each Additional 09/2014 24646-Zljdhpwp Plate Each Additional 10/2014 45155- Debride <25 sq cm 11/11/2014 24964- Debride <25 sq cm 05/09/2014 76761- Debride <25 sq cm 02/07/2014 11931- Debride <25 sq cm 02/10/2015 73112- Debride <25 sq cm 02/14/2020 38433-KRBXQKV SKIN/TISSUE 01/23/2020 27436-SPHV SKIN LESIONS, OVER 4 09/25/19 22 31687-ZTLI SKIN LESIONS, OVER 4 07/16/19 22 88863-ZOCY SKIN LESIONS, OVER 4 01/14/20 22 09042-OBOU SKIN LESIONS, OVER 4 10/24/19 24 48977-OFBZ SKIN LESIONS, OVER 4 12/28/19 24 65610-AYRD SKIN LESIONS, OVER 4 03/26/20 24 18983-WMYH SKIN LESIONS, OVER 4 06/25/20 24 11549-CMMH SKIN LESIONS, OVER 4 09/25/19 25 00886- Biopsy of skin lesion 05/05/2017 Next Appt Details Provider Name:Bharathi Craft 12/17/2024 10:45:00 AM, [address] [facility], [place] [address], [place], [address], Provider Name:Bharathi Craft , 01/30/2025 02:00:00 PM, [address] [facility], [address], [place], [address], Insurance Providers Payer Name Payer Address Payer Phone Subscriber Number Group Number Insured Name Patient Relationship to Insured Coverage Start Date Coverage End Date [employer] Preferred [address] [place] [address] [id number] Olya Hull Self - patient is the insured Medical (General) History Medical History History ICD Code Aortic calcification Arthritis Back pain Cancer Cataracts Chicken pox Cholesterol High blood pressure Lung disease- COPD Measles Osteoporosis KD Surgical History Surgery Date(Month/Year) bilateral mastectomy 2006 arm ear surgery Hospitalization History Reason Date(Month/Year) retirement- fell, hurt left arm 12/2021 Nuclear Stress Test- Carotid artery 03/24
--- OUTSIDE RECORDS SUMMARY | 2024-11-22 13:47 | XMS_ITS | Clinical Summary ---
Author Organization [facility] [address] [place] [address] [place] [phone] Phone Care Team Providers Care Tax Credit Leasing Consultant Name Role Phone Summer Ramírez MD Primary [...] mcg (1,000 unit) tablet Take by mouth. Ac tive FLUTICASONE PROPION-SALMETE ROL INHL Inhale 500 Devices into the lungs [...] through the Spiriva device every AM Active Hospital, Clinic, or Other Facility Administered Medication Ordered Dose Route Frequency Start Date End Date Status denosumab (PROLIA) syringe 60 mgIndications:Age-related osteoporosis without current pathological fracture 60 mg subQ Once 10/01/2024 Act summer Active Problems Problem Noted Date Diagnosed Date [...] pounds in one week. Carotid artery disease (CMS/HCC V24) 05/04/2021 Overview (04/14/2024): Last Assessment & Plan: [...] Encounters Date Type Department Care Team Description 10/01/2024 11:00 AM EDT Clinical Support Endocrinology - [address] [phone] Age-related osteoporosis without current pathological fracture (Primary Dx) 09/17/2024 Telephone Endocrinology - [address] [phone] Jason Sy MD prolia 09/14/2024 Telephone Endocrinology - [address] [address] Avani Gill PA from Last 3 Months Surgical History Surgery [...] tear Rhabdomyolysis DX:Rhabdomyolysi s Acute kidney injury (CMS/HCC V24) DX:Acute kidney injury (HCC) Adrenal adenoma DX:Adrenal adeno ma Atrophic vaginitis DX:Atrophic v aginitis Bursitis of hip DX:Bursitis of h ip Chronic obstructive lung dis ease (CMS/HCC V24, CMS/HCC V28) DX:Chronic obstructive lung disease (HCC) Dementia (CMS/HCC V24, CMS/HCC V28) DX:Dementia (HCC) 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[facility] V24) DX: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[facility]) History of malignant neoplasm of breast DX:History of malignant neoplasm of breast History of malignant neoplas m of uterine body DX:History of malignant neop lasm of uterine body Low back pain DX:Low back pain Nicotine dependence DX:Nicotine dependence Osteoporosis DX:Osteoporosis Poor short term memory DX:Poor s hort term memory Prediabetes DX:Prediabetes Pulmonary emphysema ([facility] V24, [facility] V28) DX:Pulmonary emphysema ([facility]) Pulmonary nodules DX:Pulmonary n odules Rectocele DX:Rectocele Spinal stenosis DX:Spinal stenos is Vaginal wall prolapse DX:Vaginal wall prolapse SONIA (acute kidney injury) ([facility] V24) DX:SONIA (acute kidney injury) ([facility]) Transaminitis DX:Transaminitis Leukocytosis DX:Leukocytosis Lactic acidosis DX:Lactic [...] Sign Reading Time Taken Comments Blood Pressure 102/56 10/01/2024 11:04 AM EDT Pulse 58 10/01/2024 11:04 AM EDT Temperature 35.9 ??C (96.6 ??F) 10/01/2024 11:04 AM E DT Respiratory Rate - - Oxygen Saturation 93% 10/31/2023 11:37 AM EDT on 3 L Inhaled Oxygen Concentration - - Weight 52.6 kg (116 lb) 05/24/2024 9:24 AM EST Height 154.9 cm (5' 1 ) 05/24/2024 9:24 AM EST Body Mass Index 21.92 05/24/2024 9:24 AM EST Plan of Treatment Upcoming Encounters Date Type Department Care Team (Late st Contact Info) Description 04/08/2025 11:00 AM EDT Clinical Support Endocrinology - [address] [phone] 05/06/2025 1:00 PM EDT Office Visit [facility] [address] [place] [address] Avani Gill PA [address] [place], [place] Health Maintenance Due Date Last Done Comments DTaP,Tdap,and Td Vaccines (1 - Tdap) 1959 Zoster Vaccines (1 of 2) 1988 RSV Immunization Adult Patients (1 - 1-dose 75+ series) 2013 Pneumococcal Vaccine: 50+ Years (2 of 2 - PPSV23) 05/28/2019 04/02/2019 Cholesterol Screening (Lipid Panel) 06/19/2022 Depression Screening 06/19/2022 Falls Risk Assessment 06/19/2022 Medicare Annual Wellness Visit 06/19/2022 Social Influencers of Health Screening 06/19/2022 COVID-19 Vaccine ( season) 2024 09/18/2020, 08/21/2020 Influenza Vaccine (Season Ended) 2025 06/13/2023, 04/24/2021, 03/10/2020, Additional history exists Hypertension/CHF/CAD Annual BMP Blood Test 09/19/2025 09/19/2024, 12/13/2022 Osteoporosis Screening (Bone Density Screening) 08/30/2032 08/30/2022, [...] age to complete this topic Meningococcal B Vaccine Aged Out No l onger eligible based on patient's age to complete this topic RSV Immunization Patients Under 20 months Aged Out No longer eligible based on patient's age to complete this topic Varicella Vaccines Aged Out No longer eligible based on patient's age to complete this topic Procedures Procedure Name Priority Date/Time Associated Diagnosis Comments VITAMIN D 25 HYDROXY Routine 09/19/2024 2:15 PM EDT Age-related osteoporosis without current pathological fracture BASIC METABOLIC PANEL Routine 09/19/2024 2:15 PM EDT Age-related osteoporosis without current pathological fracture DXA BONE DENSITY STUDY 1+ SITS AXIAL SKEL Routine 08/30/2022 11:20 AM EST Age-related osteoporosis without current pathological fracture from Last 3 Months or Most Recently Relevant to Health Maintenance Results * Vitamin D 25 hydroxy (09/19/2024 2:15 PM EDT) Pathologist [facility] Vit D, 25-Hydroxy 61.6 30.0 - 80.0 ng/mL LAB CHEMISTRY METHOD 09/19/2024 7:59 PM EDT [facility] Blood Venous blood specimen / Unknown Venipuncture / Unknown 09/19/2024 2:15 PM EDT 09/19/2024 2:59 PM EDT us Avani HERRERA LAB BLOOD ORDERABLES Final Resul t [facility] [address] [place] [address], [place] [phone] * (ABNORMAL) Basic metabolic panel (09/19/2024 2:15 PM EDT) Pathologist [facility] Sodium 145 133 - 145 mmol/L LAB CHEMISTRY METHOD 09/19/2024 3:51 PM EDT [facility] Potassium 5.1 3.5 - 5.5 mmol/L LAB CHEMISTRY METHOD 09/19/2024 3:51 PM [facility] Chloride 109 96 - 110 mmol/L LAB CHEMISTRY METHOD 09/19/2024 3:51 PM [facility] CO2 30 21 - 32 mmol/L LAB CHEMISTRY METHOD 09/19/2024 3:51 PM [facility] Anion Gap 6 3 - 11 LAB CHEMISTRY METHOD 09/19/2024 3:51 PM [facility] Glucose 118(H) 70 - 100 mg/dL LAB CHEMISTRY METHOD 09/19/2024 3:51 PM [facility] BUN 38(H) 5 - 25 mg/dL LAB CHEMISTRY METHOD 09/19/2024 3:51 PM [facility] Creatinine 0.83 0.50 - 1.10 mg/dL LAB CHEMISTRY METHOD 09/19/2024 3:51 PM [facility] eGFR 69 >=60 mL/min/1. 73m2 LAB CHEMISTRY METHOD 09/19/2024 3:51 PM [facility] Comment:Calculation based on the??Chronic Kidney Disease Epidemiology Collaboration (CKD-EPI) equation refit??without adjustment for race. BUN/Creatinine Ratio 45.8 LAB CHEMISTRY METHOD 09/19/2024 3:51 PM [facility] Calcium 9.2 8.5 - 10.5 mg/dL LAB CHEMISTRY METHOD 09/19/2024 3:51 PM [facility] Blood Venous blood specimen / Unknown Venipuncture / Unknown 09/19/2024 2:15 PM EDT 09/19/2024 2:59 PM EDT us Avani HERRERA LAB BLOOD ORDERABLES Final Resul t [facility] [address] [place] [address], [place] [phone] * DXA BONE DENSITY STUDY 1+ FRANKY LOWE (08/30/2022 11:20 AM EST) Anatomical Region Laterality [...] criteria. IMPRESSION: Osteoporosis by WHO criteria. [facility] Department of Internal Medicine recommends using National [...] alternative screening schedule based on alla Jenkins., [facility] July 29, 2011 for patients with osteopenia [...] criteria. IMPRESSION: Osteoporosis by WHO criteria. [facility] Department of Internal Medicine recommendsusing National Osteoporosis [...] Maintenance Insurance [employer] Care Teams Tax Credit Leasing Consultant Relationship Specialty Start Date End Date Summer Ramírez MD [address] [place] [address] PCP - General 03/01/24
--- OUTSIDE RECORDS SUMMARY | 2024-11-22 13:47 | XMS_ITS ---
Author Organization [facility] Address [address] [place] [address] Care Team Providers Care Bit Sander Name Role Phone Nancy Rene Primary Care Provider Bharathi Samson Unavailable [phone] Allergies Allergen (clinical drug ingredient) Drug/Non Drug Allergy documented on EMR Reaction Allergy Type Onset Date Status Seasonale Unknown Drug Allergy Active REASON FOR VISIT At Risk Footcare, Painful Nail(s) aggravated by shoes and causing difficulty standing/walking., Wart(s) Medications Medication SIG (Take, Route, Frequency, Duration) Notes Start Date End Date Status Calcium w/ mag, zinc Not-Tc ing ProAir HFA 108 (90 Base) MCG/ACT Inhalation for 25 Not-Takin g Vitamin C Active Vitamin D 1000 UNIT 1 tablet Orally Once a day Active Wixela Inhub Active Isosorbide Mononitrate Active Multivitamin Active oxygen Active Spiriva HandiHaler 18 MCG Inhalation for 90 Active Tylenol Active Atorvastatin Calcium Active Fluticasone Propionate Active Advair Diskus 250-50 MCG/DOSE Inhalation for 90 Active Albuterol Sulfate 108 (90 Base) MCG/ACT 1 puff as needed Inhalation Three times a day Active Albuterol Sulfate Ac tive Cephalexin 500 MG 1 capsule Orally every 8 hrs for 10 day(s) Not-Taking levoFLOXacin Active Estradiol Estrogen Ring Active Prolia Active Calcium & Magnesium Carbonates Active Vagifem 10 MCG Vaginal for 84 Not-Taking Alendronate Sodium N ot-Taking Lidocaine 5 % 1 application to affected area as needed Externally to effected areas on feet Three times a day for 30 days 04/04/2019 Not-Taking Albuterol Not-Taking Lisinopril-hydroCHLOR Othiazide 20-12.5 MG Oral for 90 Not-Tc ing Vitamin K2-Vitamin D3 Not-Taking Vitamin D3 Not-Takin g aspirin baby Not-Tc ing Fish Oil 1000 MG 1 capsule Orally Once a day Not-Taking Memantine HCl Not-Eric cast Social History Tobacco Use: Social History Observation [...] ast year? No Points 0 Interpretation Negative Vital Signs Height 5 ft 1 in in 09/24/2024 Weight 115 lbs 09/24/2024 BMI 21.73 kg/m2 09/24/2024 Blood pressure systolic 121 mm Hg 09/25/19 25 Blood pressure diastolic 60 mm Hg 025 Procedures Procedure Date Ordered Date Performed Result Body Sit e 39342-FRCXHSO NAIL, 6 OR MORE 09/24/2024 N/A 84617-Vufy Destruction, 1-14 09/24/2024 N/A 61250-HAUM SKIN LESIONS, OVER 4 09/24/2024 N/A Encounters Encounter Location Date Provider Diagnosis [facility] [address] [address] 09/24/2024 Bharathi Craft Atherosclerosis of [place] artery of both lower extremities, with unspecified presence of clinical manifestation I70.203 ; Tinea unguium B35.1 ; Pain in right toe(s) M79.674 ; Pain in left toe(s) M79.675 ; Plantar wart B07.0 and Pain in right foot M79.671 Assessments Encounter Date Diagnosis (ICD Code) Assessment Notes Treatment Notes Treatment Clinical Notes Section Notes 09/24/2024 Atherosclerosis of [place] artery of both lower extremities, with unspecified presence of clinical manifestation (ICD-10 - I70.203) 09/24/2024 Tinea unguium (ICD-10 - B35.1) 09/24/2024 Pain in right toe(s) (ICD-10 - M79.674) 09/24/2024 Pain in left toe(s) (ICD-10 - M79.675) 09/24/2024 Plantar wart (ICD-10 - B07.0) 09/24/2024 Pain in right foot (ICD-10 - M79.671) Plan Of Treatment Pending Test Test Name Order Date 17648-SAWMAEZ NAIL, 6 OR MORE 09/24/2024 45980-Uasq Destruction, 1-14 09/24/2024 84283-QGFS SKIN LESIONS, OVER 4 09/25/19 25 Next Appt Details Follow Up: prn, Reason: Provider Name:Bharathi Craft , 12/17/2024 10:45:00 AM, [facility], [address], [address], Provider Name:Bharathi Craft , 01/30/2025 02:00:00 PM, [facility], [address] [address], [place], [address], Procedure Notes * Category Sub-Category Detail Notes Wart Treatment Procedure Verruca, as desc ribed in exam, were debrided to pin-point bleeding margins with sterile 15 surgical blade, silver nitrate chemocautery applied, recomm. immune-boosting meds such as zinc, recomm. follow up with topical chemosurgical agents, Pt defers any other forms of tx - 07102 Debride Nail 6-10 Nail debridement Due to the cl inical pathology outlined in the exam findings, performance of this nail treatment is medically necessary as its management by an unskilled/untrained nonprofessional would put this patients foot and overall health at risk. Therefore, debridement to affected nail(s), as described in exam ( T1, T2, T3, T4, T6, T7, T8, T9 ), was performed exclusively by the physician of record to reduce/remove overall nail length, girth, thickness, subungual debris, and necrotic tissue, by manual and/or electrical means through the use of a nail nipper and/or dremel-type chicle grinder feeder, to a more viable healthy nail plate [...] to maintain effectiveness in symptomatic relief - 00845 Keratoma Treatment Parring or Cutting o f [...] MTH (s), 4, Right ,Plantar, Heel(s), B/L ), were pared, and/or cut utilizing a sterile 15 blade, tissue nippers, and/or power dremel instrumentation by the physician of record - 86849, Q8 Progress Notes * Olya HULL ADOB:1940 (83 yo F)Acc No.[id number]:09/24/2024 Progress Notes Patient:?Olya HULL Jose Provider:?Bharathi Craft DPM :1940???Age:83 Y???Sex:Female D ate:09/24/2024 Address:[address] [place] [phone] Pcp:Nancy Rene Subjective: * Chief Complaints: * [...] ?Exercise: no. ?Marital status: . ?Occupation: Retired. ???Drug/Alcohol:?AUDIT-C (Standard)?Did you have a drink containing alcohol in the past year??No ?Points?0 ?Interpretation?Negative * Medications:?TakinglevoFLOXa yu Estradiol , Notes to [...] 15, BMI: 21.73, Shoe size: 8.5, BP: 121/60 mm Hg, Wt-k.16 kg. * Examination: ???Vascular: [...] Assessment: 1.?Tinea unguium - B35.1???2 .?Atherosclerosis of [place] artery of both lower extremities, with unspecified presence of clinical manifestation - I70.203 (Primary)???3.?Pain in right toe(s) - M79.674???4.?Pain in left toe(s) - M79.675 ??5.?Plantar wart - B07.0???Specify :RIGHT???6.?Pain in right foot - M79.671??? Plan: * Treatment: 2.?Tinea unguium?Procedure: 37025-LNTYQPQ NAIL, 6 OR MORE 3.?Plantar wart?Procedure: 15173-Fuak Destruction, 1-14 * Procedures:?Debride Nail 6-10:?Nail debridement?Due to the clinical pathology outlined in the exam findings, performance of this nail treatment is medically necessary as its management by an unskilled/untrained nonprofessional would put this patients foot and overall health at risk. Therefore, debridement to affected nail(s), as described in exam (?T1,?T2,?T3,?T4,?T6,?T7,?T8,?T9?), was performed exclusively by the physician of record to reduce/remove overall nail length, girth, thickness, subungual debris, and necrotic tissue, by manual and/or electrical means through the use of a nail nipper and/or dremel-type chicle grinder feeder, to a more viable healthy nail plate [...] to maintain effectiveness in symptomatic relief - 16776.?Keratoma Treatment:?Parring or Cutting of Benign Hyperkeratotic Lesion(s)?(-57) [...] exam (?SUB MTH (s),?5,?Left?,?SUB MTH (s),?1,?Right?,?SUB MTH (s),?4,?Right?,Plantar,?Heel(s),?B/L?), were pared, and/or cut utilizing a sterile 15 blade, tissue nippers, and/or power dremel instrumentation by the physician of record - 49564, Q8.?Wart Treatment:?Procedure?Verruca, as described in exam, were debrided to pin-point bleeding margins with sterile 15 surgical blade, silver nitrate chemocautery applied, recomm. immune-boosting meds such as zinc, recomm. follow up with topical chemosurgical agents, Pt defers any other forms of tx - 05630.? * Procedure Codes:?74127 DEBRI DE NAIL, 6 OR MORE, Modifiers: XS 29624 Wart Destruction, 1-14, Modifiers: XS 76366 TRIM SKIN LESIONS, OVER 4, Modifiers: XS , Q8 * Preventive Medicine:? ??Counseling:?Tobacco use:?Patient counseled on the dangers of smoking and urged to quit:?09/24/2024 * Follow Up:?prn * Images: * Sign off status: Completed true * Provider:?Bharathi Craft DPM Date:?2024 Generated for Douglas paredes/Arun/Wilfredo on:?11/22/2024 01:47 PM EDT History and Physical [...]
--- OUTSIDE RECORDS SUMMARY | 2024-11-22 13:47 | XMS_ITS | Encounter Summary ---
Author Organization [facility] Address [address] [place] [address] Phone Care Team Providers Care Integrated Logistics Support Manager Name Role Phone Nancy Rene NP Primary Care Provider [phone] Encounter Details Date Type Department Care Team (Late st Contact Info) Description 10/07/2020 Orders Only [facility] [address] [place] [phone] Provider, MD Marie [address] [place] [address] Social History Tobacco Use Types Packs/Day [...] on filedocumented in this encounter Care Teams Integrated Logistics Support Manager Relationship Specialty Start Date End Date Nancy Rene NP PCP - General 07/21/20 documented as of this encounter
--- OUTSIDE RECORDS SUMMARY | 2024-11-22 13:47 | XMS_ITS ---
Author Organization [facility] Care Team Providers Care Operating Engineer Name Role Phone Panfilo Alcocer Unavailable Unavailable Elizabeth Henson Unavailable Unavailable Wili Phillips Unavailable Unavailable Magdalena Vieira Unavailable Unavailable Derrick Gamez Unavailable Unavailable Aristeo Tang Unavailable Unavailable Rosario Flores Unavailable Unavailable Allergies and adverse reactions No Known Allergies Care Team Name Role Address Phone Organization Dates Wili Phillips PCP [address], [place], [address], [place] (Office): [facility] 10/29/2021 - 12/03/2021 Panfilo Alcocer [address] [facility] [address], [place], [address], [place] (Office): : [facility] 10/29/2021 - 12/03/2021 Elizabeth Henson [address] [facility] [address], [place], [address], [place] (Office): [facility] 10/29/2021 - 12/03/2021 Magdalena Vieira [address], [place], [address], [facility] (Office): [facility] 10/29/2021 - 12/03/2021 Derrick Gamez [address], [place], [address], [facility] (Office): : [facility] 10/29/2021 - 12/03/2021 Aristeo Tang [address] [facility], [place], [address], [facility] (Office): [facility] 10/29/2021 - 12/03/2021 Rosario Sandra [address] [place], [address], [facility] (Office): [facility] 10/29/2021 - 12/03/2021 Immunizations Immunization Status Vaccine Details Vaccine Code CodeSystem Malick e Notes SARS-COV-2 (COVID-19) completed SARS-COV-2 (COVID-19) vaccine, mRNA, spike protein, LNP, preservative free, 100 mcg/0.5mL dose or 50 mcg/0.25mL dose Mfg: Moderna Step 2 of Multi-step with next step required 207 CVX created date: 10/26/2021 administered date: 09/18/2020 SARS-COV-2 (COVID-19) completed SARS-COV-2 (COVID-19) vaccine, mRNA, spike protein, LNP, preservative free, 100 mcg/0.5mL dose or 50 mcg/0.25mL dose Mfg: Moderna Step 1 of Multi-step with next step required 207 CVX created date: 10/26/2021 administered date: 08/21/2020 Mental Status Section Date Assessment Total Score Description 12/03/2021 CAM 0 No delirium ind icated 10/29/2021 BIMS 12 moderate cognit summer impairment CAM 0 No delirium ind icated PHQ-9 00 Problems Problem # Description Date of onset Resolved Date Code CodeSystem Concern Status 1 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 10/27/[address] active 2 ACUTE KIDNEY FAILURE, UNSPECIFIED 10/25/[address] active 3 AGE-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 PATHOLOGICAL FRACTURE 10/25/[address] active 4 CHRONIC OBSTRUCTIVE PULMONARY DISEASE, UNSPECIFIED 10/25/[address] active 5 DIFFICULTY IN WALKING, NOT ELSEWHERE CLASSIFIED 10/25/[address] active 6 HISTORY OF FALLING 10/25/[address] active 7 INCOMPLETE ROTATOR CUFF TEAR OR RUPTURE OF LEFT SHOULDER, NOT SPECIFIED TRAUMATIC 10/25/[address] active 8 MUSCLE WEAKNESS (GENERALIZED) 10/25/[address] active 9 OTHER SYMPTOMS AND SIGNS INVOLVING COGNITIVE FUNCTIONS AND AWARENESS 10/25/[address] active 10 PAIN IN LEFT SHOULDER 10/25/[address] active 11 PRESSURE ULCER OF UNSPECIFIED SITE, STAGE 3 10/25/[address] active 12 RHABDOMYOLYSIS 10/25/[address] active 13 SPONTANEOUS RUPTURE OF OTHER TENDONS, LEFT SHOULDER 10/25/[address] active 14 STRAIN OF MUSCLE(S) AND TENDON(S) OF THE ROTATOR CUFF OF LEFT SHOULDER, SUBSEQUENT ENCOUNTER 10/25/[address] active 15 STRAIN OF MUSCLE, FASCIA AND TENDON OF LOWER BACK, SUBSEQUENT ENCOUNTER 10/25/[address] active 16 UNSPECIFIED FALL, SEQUELA 10/25/[address] active 17 UNSTEADINESS ON FEET 10/25/[address] active Reason for Referral No Reasons for Referral Entered Social History Social History Observation Description Start Date End Date Code Code System Current Smoking Status Tobacco smoking consumption unknown 756614761 SNOMED CT Sex Assigned At Female 1940 [address]-7 [facility] Gender Identity Vital Signs Code Code System Vitals Name Values and Units Timing Information 8310-5 LOINC Body Temperature Value=97.8 Units=?? F 12/03/2021 9279-1 LOINC Respiratory Rate Value=20.0 Units=/m in 12/03/2021 8462-4 [facility] Blood Pressure-Diastolic Value=74 Un its=mmHg 12/03/2021 8480-6 [facility] Blood Pressure-Systolic Pdjfi=344 Un its=mmHg 12/03/2021 8867-4 [facility] Heart rate Value=76.0 Units=/min 60224-5 [facility] Pain Level Value=0.0 12/03/2021 72486-5 [facility] O2 % BldC Oximetry Value=98.0 Units= % 12/03/2021 80113-7 [facility] Weight Oywun=312.0 Units=Lbs 8302-2 [facility] Height Value=62.0 Units=Inches 10/24/2021
--- OUTSIDE RECORDS SUMMARY | 2024-11-22 13:47 | XMS_ITS | Clinical Summary ---
Author Organization [facility] Address [address] [place] [address] Phone Care Team Providers Care Car Tracer Name Role Phone Nancy Rene NP Primary Care Provider [phone] Allergies No known active allergies Medications albuterol [...] Diagnosed Date Adrenal adenoma 11/30/2021 Atherosclerosis of lower [place] arteries of the extrem ities 11/30/2021 Bursitis [...] 10/11/2017 Overview (11/30/2021): Prolia 10/11/17; 09/01/20 Immunizations Immunization Administration Dates Next Due Influenza (IM) Preservative [...] Due Date Last Done Comments Pneumococcal Vaccine: 50+ Years (2 of 2 - PPSV23) 05/28/2019 04/02/2019 Influenza Vaccine (Season Ended) 2025 03/10/2020, 03/10/2020, 04/09/2019, Additional history exists Pneumococcal Vaccine: Peds (0 to 5 Years) and At-Risk Patients (6 to 49 Years) Discontinued 04/02/2019 Hepatitis B Vaccine Aged Out No longe r eligible based on patient's age to complete this topic Insurance [employer] Care Teams Car Tracer Relationship Specialty Start Date End Date Nancy Rene NP PCP - General 07/21/20
--- OUTSIDE RECORDS SUMMARY | 2024-11-22 13:47 | XMS_ITS | Patient Health Record ---
Author Organization [facility] Address [address] [facility] [address] [place] [address] Care Team Providers Care Production Finisher Name Role Phone RAFAELA WARREN, LAURO Primary Care Provider KYRIE Mi Unavailable [phone] Allergies No Known Allergies Reason For Referral [...] Status Risk Notes Problem Postmenopausal atrophic vaginitis (02573267) Postmenopausal atrophic vaginitis (N95.2) Active confirmed Problem Herniation of rectum into vagina (428519524) Rectocele (N81.6) Active confirmed Problem Age-related osteoporosis (320168658) Age-related osteoporosis without current pathological fracture (M81.0) Active confirmed Problem Essential hypertension (44498619) Essential (primary) hypertension (I10) Active confirmed Problem Chronic obstructive pulmonary disease (54235240) Chronic obstructive pulmonary disease, unspecified (J44.9) Active confirmed Problem Cystocele (613323711) Cystocele, unspecified (N81.10) Active confirmed Problem 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 Problem Personal history of malignant neoplasm of breast (Z85.3) Active confirmed Vital Signs Temperature 98.0 degrees Fahrenheit 05/28/2024 Blood pressure diastolic 64 mm Hg 05/28/2024 Height 61.5 in 05/28/2024 Blood pressure systolic 114 mm Hg 05/28/2024 Weight 113 lbs 05/28/2024 BMI 21 kg/m2 05/28/2024 Encounters Encounter Location Date Provider Diagnosis [address] [place] [address] [address] 02/27/2024 KYRIE BALLARD Prolapse of vaginal vault after hysterectomy N99.3 ; Rectocele N81.6 and Other specified noninflammatory disorders of vagina N89.[address] [place] [address] [address] 05/28/2024 KYRIE BALLARD Prolapse of vaginal vault [...] Coverage End Date [employer] [address] [place] [address] [phone] [id number] MARYLOU DOUGHERTY Self - patient is the [...]
--- OUTSIDE RECORDS SUMMARY | 2024-11-22 13:47 | XMS_ITS ---
Author Organization [facility] Address [address] [place] [address] Care Team Providers Care Machine Made Shoe Unit Worker Name Role Phone Nancy Rene Primary Care Provider Bharathi Samson Unavailable [phone] Allergies Allergen (clinical drug ingredient) Drug/Non Drug [...] Ordered Date Performed Result Body Sit e 41499-Wjhz Destruction, -08/09/2024 N/A Encounters Encounter Location Date Provider Diagnosis [facility] [address] [address] 08/09/2024 Bharathi Craft Plantar wart B07.0 and Pain in right foot M79.671 Assessments Encounter Date Diagnosis (ICD Code) Assessment Notes Treatment Notes Treatment Clinical Notes Section Notes 08/09/2024 Plantar wart (ICD-10 - B07.0) 08/09/2024 Pain in right foot (ICD-10 - M79.671) Plan Of Treatment Pending Test Test Name Order Date 36465-Zvoz Destruction, -08/09/2024 Next Appt Details Follow Up: prn, Reason: Provider Name:Bharathi Craft , 12/17/2024 10:45:00 AM, [address] [address], [place], [address], Provider Name:Bharathi Craft , 01/30/2025 02:00:00 PM, [address], [place], [address], Procedure Notes * Category Sub-Category Detail Notes Wart Treatment Procedure Verruca were maria alejandra rided to pin-point bleeding margins with sterile 15 surgical blade, silver nitrate chemocautery applied, recomm. immune-boosting meds such as zinc, recomm. follow up with topical chemosurgical agents, recomm. Wartstick 40 percent Salicylic acid application under occlusion as directed, Pt defers any other forms of tx - 20575 Progress Notes * Olya HULL ADOB:1940 (83 yo F)Acc No.[id number]:08/09/2024 Progress Notes Patient:?Olya HULL Provider:?Bharathi Craft DPM :1940???Age:83 Y???Sex:Female D ate:08/09/2024 Address:[address] [place], [place] [address] Pcp:Nancy Rene Subjective: * Chief Complaints: * [...] defers any other forms of tx - 96922.? * Procedure Codes:?66526 Wart Destruction, 1-14 * Preventive Medicine:? ??Counseling:?Tobacco use:?Patient counseled on the dangers of smoking and urged to quit:?08/09/2024 * Follow Up:?prn * Images: * Sign off status: Completed true * Provider:?Bharathi Craft DPM Date:?2024 Generated for Douglas paredes/Arun/eTransmitting on:?11/22/2024 01:47 PM EDT History and Physical [...]
== END 2024-11-22 13:40 | disposition home or self-care (01) ==
LOC: HO.HPS 13:13
PROVIDERS: PCP Nurse Practitioner Gerontology; Visit Provider Hospitalist
DX: J43.2 Centrilobular emphysema (principal); R91.8 Other nonspecific abnormal finding of lung field; J96.11 Chronic respiratory failure with hypoxia; J18.0 Bronchopneumonia, unspecified organism; F17.200 Nicotine dependence, unspecified, uncomplicated
CPT/HCPCS: 99214; G2211

== ENCOUNTER 2024-11-22 13:12 | Outpatient (REF) | payer MEDICARE, SELFPAY ==
--- NOTE | ~2024-11-22 | XR_ITS ---
EXAMINATION: XR CHEST CLINICAL INFORMATION: J18.0 - Bronchopneumonia, unspecified organism COMPARISON: 11/28/2023. TECHNIQUE: 2 views of the chest were obtained. FINDINGS: Lateral view is limited due to patient's arm obscuring portions of the mid and anterior mediastinum. The cardiac, hilar, and mediastinal contours are normal. Aortic mural calcification. The lungs are diffusely hyperaerated. There are diffusely increased bronchovascular markings throughout both lungs, in keeping with possible small airways disease. Lungs otherwise clear without pneumonic consolidation. There is no pneumothorax or pleural effusion. There is osteopenia. There are no acute bony abnormalities. No definite soft tissue abnormalities. XR/XR chest 2V IMPRESSION: 1. COPD. 2. Mildly diffusely increased bronchovascular markings throughout both lungs, nonspecific but could represent small airways inflammatory disease. 3. No discrete consolidative pneumonia. No effusions. Electronically signed by: Bucky Leroy MD 11/22/2024 02:43 PM EDT
--- OUTSIDE RECORDS SUMMARY | 2024-11-22 14:23 | XMS_ITS | Clinical Summary ---
Author Organization [facility] [address] [place] [address] [place] [address] Phone Care Team Providers Care Manufacturing Engineering Manager Name Role Phone Summer Ramírez MD Primary [...] 11:00 AM EDT Clinical Support Endocrinology - [address] [address] Age-related osteoporosis without current pathological fracture (Primary Dx) 09/17/2024 Telephone Endocrinology - [address] [phone] Jason Sy MD prolia 09/14/2024 Telephone Endocrinology - [address] [address] Avani Gill PA from Last 3 Months [...] CMS/HCC V28) DX:Dementia (HCC) 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[facility]) History of malignant neoplasm of breast DX:History of malignant neoplasm of breast History of malignant neoplas m of uterine body DX:History of malignant neop lasm of uterine body Low back pain DX:Low back pain Nicotine dependence DX:Nicotine dependence Osteoporosis DX:Osteoporosis Poor short term memory DX:Poor s hort term memory Prediabetes DX:Prediabetes Pulmonary emphysema ([facility] V24, [facility] V28) DX:Pulmonary emphysema ([facility]) Pulmonary nodules DX:Pulmonary n odules Rectocele DX:Rectocele Spinal stenosis DX:Spinal stenos is Vaginal wall prolapse DX:Vaginal wall prolapse SONIA (acute kidney injury) ([facility] V24) DX:SONIA (acute kidney injury) ([facility]) Transaminitis DX:Transaminitis Leukocytosis DX:Leukocytosis Lactic acidosis DX:Lactic [...] 11:00 AM EDT Clinical Support Endocrinology - [address] [phone] 05/06/2025 1:00 PM EDT Office Visit [facility] [address] [place] [address] Avani Gill PA [address] [place], [place] Health Maintenance Due Date Last Done [...] 25 hydroxy (09/19/2024 2:15 PM EDT) Pathologist [facility] Vit D, 25-Hydroxy 61.6 30.0 - 80.0 ng/mL LAB CHEMISTRY METHOD 09/19/2024 7:59 PM EDT [facility] Blood Venous blood specimen / Unknown Venipuncture / Unknown 09/19/2024 2:15 PM EDT 09/19/2024 2:59 PM EDT us Avani HERRERA LAB BLOOD ORDERABLES Final Resul t [facility] [address] [place] [address], [place] [phone] * (ABNORMAL) Basic metabolic panel (09/19/2024 2:15 PM EDT) Pathologist [facility] Sodium 145 133 - 145 mmol/L LAB CHEMISTRY METHOD 09/19/2024 3:51 PM EDT [facility] Potassium 5.1 3.5 - 5.5 [...] HERRERA LAB BLOOD ORDERABLES Final Resul t [facility] [address] [place] [address], [place] [phone] * DXA BONE DENSITY STUDY 1+ FRANKY [...] criteria. IMPRESSION: Osteoporosis by WHO criteria. [facility] Department of Internal Medicine recommends using [...] alternative screening schedule based on alla Jenkins., [facility] July 29, 2011 for patients with osteopenia [...] criteria. IMPRESSION: Osteoporosis by WHO criteria. [facility] Department of Internal Medicine recommendsusing National [...] Maintenance Insurance [employer] Care Teams Manufacturing Engineering Manager Relationship Specialty Start Date End Date Summer Ramírez MD [address] [place] [address] PCP - General 03/01/24
--- OUTSIDE RECORDS SUMMARY | 2024-11-22 14:23 | XMS_ITS | Clinical Summary ---
Author Organization [facility] Address [address] [place] [address] Phone Care Team Providers Care Narcotics And Vice Detective Name Role Phone Nancy Rene NP Primary Care Provider [phone] Allergies No known active allergies Medications albuterol [...] Diagnosed Date Adrenal adenoma 11/30/2021 Atherosclerosis of [place] arteries of the extrem ities 11/30/2021 Bursitis [...] Insurance [employer] Care Teams Narcotics And Vice Detective Relationship Specialty Start Date End Date Nancy Rene NP PCP - General 07/21/20
--- OUTSIDE RECORDS SUMMARY | 2024-11-22 14:23 | XMS_ITS | Encounter Summary ---
Author Organization [facility] Address [address] [place] [address] Phone Care Team Providers Care Distribution System Operator Name Role Phone Nancy Rene NP Primary Care Provider [phone] Encounter Details Date Type Department Care Team (Late st Contact Info) Description 10/07/2020 Orders Only [facility] [address] [place] [phone] Provider, MD Marie [address] [place] [id number] Social History Tobacco Use Types Packs/Day [...] on filedocumented in this encounter Care Teams Distribution System Operator Relationship Specialty Start Date End Date Nancy Rene NP PCP - General 07/21/20 documented as of this encounter
--- OUTSIDE RECORDS SUMMARY | 2024-11-22 14:23 | XMS_ITS ---
Author Organization [facility] Care Team Providers Care Director Of Broadcast Name Role Phone Panfilo Alcocer Unavailable Unavailable Elizabeth Henson Unavailable Unavailable Wili Phillips Unavailable Unavailable Magdalena Vieira Unavailable Unavailable Derrick Gamez Unavailable Unavailable Aristeo Tang Unavailable Unavailable Rosario Flores Unavailable Unavailable Allergies and adverse reactions No Known Allergies Care Team Name Role Address Phone Organization Dates Wili Phillips PCP [address], [place], [address], [place] (Office): [facility] 10/29/2021 - 12/03/2021 Panfilo Alcocer [address] [facility] [address], [place], [address], [place] (Office): : [facility] 10/29/2021 - 12/03/2021 Elizabeth Henson [address] [facility] [address], [place], [address], [place] (Office): [facility] 10/29/2021 - 12/03/2021 Magdalena Vieira [address], [place], [address], [facility] (Office): [facility] 10/29/2021 - 12/03/2021 Derrick Gamez [address], [place], [address], [facility] (Office): : [facility] 10/29/2021 - 12/03/2021 Aristeo Tang [address] [facility], [place], [address], [facility] (Office): [facility] 10/29/2021 - 12/03/2021 Rosario Sandra [address] [place], [address], [facility] (Office): [facility] 10/29/2021 - 12/03/2021 Immunizations Immunization Status Vaccine [...] Concern Status 1 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 10/27/[id number] active 2 ACUTE KIDNEY FAILURE, UNSPECIFIED 10/25/[address] active 3 AGE-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 PATHOLOGICAL FRACTURE 10/25/[address] active 4 CHRONIC OBSTRUCTIVE PULMONARY DISEASE, UNSPECIFIED 10/25/[address] active 5 DIFFICULTY IN WALKING, NOT ELSEWHERE CLASSIFIED 10/25/[address] active 6 HISTORY OF FALLING 10/25/[address] active 7 INCOMPLETE ROTATOR CUFF TEAR OR RUPTURE OF LEFT SHOULDER, NOT SPECIFIED TRAUMATIC 10/25/[address] active 8 MUSCLE WEAKNESS (GENERALIZED) 10/25/[address] active 9 OTHER SYMPTOMS AND SIGNS INVOLVING COGNITIVE FUNCTIONS AND AWARENESS 10/25/[address] active 10 PAIN IN LEFT SHOULDER 10/25/[address] active 11 PRESSURE ULCER OF UNSPECIFIED SITE, STAGE 3 10/25/[address] active 12 RHABDOMYOLYSIS 10/25/[address] active 13 SPONTANEOUS RUPTURE OF OTHER TENDONS, LEFT SHOULDER 10/25/[address] active 14 STRAIN OF MUSCLE(S) AND TENDON(S) OF THE ROTATOR CUFF OF LEFT SHOULDER, SUBSEQUENT ENCOUNTER 10/25/[address] active 15 STRAIN OF MUSCLE, FASCIA AND TENDON OF LOWER BACK, SUBSEQUENT ENCOUNTER 10/25/[address] active 16 UNSPECIFIED FALL, SEQUELA 10/25/[address] active 17 UNSTEADINESS ON FEET 10/25/[address] active Reason for Referral No Reasons for Referral Entered Social History Social History Observation Description Start Date End Date Code Code System Current Smoking Status Tobacco smoking consumption unknown 737377640 SNOMED CT Sex Assigned At Female 1940 [address]-3 [facility] Gender Identity Vital Signs Code Code System Vitals Name Values and Units Timing Information 8310-5 LOINC Body Temperature Value=97.8 Units=?? F 12/03/2021 9279-1 LOINC Respiratory Rate Value=20.0 Units=/m in 12/03/2021 8462-4 [facility] Blood Pressure-Diastolic Value=74 Un its=mmHg 12/03/2021 8480-6 [facility] Blood Pressure-Systolic Nzrqb=944 Un its=mmHg 12/03/2021 8867-4 [facility] Heart rate Value=76.0 Units=/min 39367-9 [facility] Pain Level Value=0.0 12/03/2021 55219-2 [facility] O2 % BldC Oximetry Value=98.0 Units= % 12/03/2021 08485-9 [facility] Weight Ijpcg=430.0 Units=Lbs 8302-2 [facility] Height Value=62.0 Units=Inches 10/24/2021
== END 2024-11-22 13:13 | disposition home or self-care (01) ==
LOC: HO.XRAY 13:12
PROVIDERS: PCP Nurse Practitioner Gerontology; Visit Provider Hospitalist
DX: J43.2 Centrilobular emphysema (principal); R91.8 Other nonspecific abnormal finding of lung field; J96.11 Chronic respiratory failure with hypoxia; J18.0 Bronchopneumonia, unspecified organism; F17.200 Nicotine dependence, unspecified, uncomplicated; Z99.81 Dependence on supplemental oxygen
CPT/HCPCS: 71046; 99212

== ENCOUNTER → 2024-11-22 13:51 | Outpatient (BNV) | payer MEDICARE, SELFPAY | PROVIDERS: PCP Nurse Practitioner Gerontology; Visit Provider Radiology Diagnostic Radiology | DX: J44.9 Chronic obstructive pulmonary disease, unspecified (principal) | CPT/HCPCS: 71046 ==

== ENCOUNTER 2025-01-16 19:10 | Emergency (ER) | payer MEDICARE, SELFPAY ==
--- NOTE | ~2025-01-16 | CT_ITS ---
CLINICAL HISTORY: pt reports Protruding anal mass with pus CT abdomen and pelvis with contrast Comparison: None provided Findings: Minor atelectasis at the lower lungs. Indeterminate right adrenal nodule 1.5 cm, and indeterminate left adrenal nodule 1.7 cm. Small left renal cysts. Gallbladder and solid organs otherwise unremarkable. No urolithiasis. No bowel obstruction, pneumoperitoneum, or pneumatosis. Moderate stool. Distal colonic diverticulosis without diverticulitis. There are 2 ring pessary within the vagina. Uterus is absent. Ovaries are not identified. The distal rectum is thick-walled. There is also mild perianal fat induration with no fluid collection. Appendix not identified. Urinary bladder unremarkable. No ascites. Osteopenia. Moderate to severe lower lumbar degenerative changes. IMPRESSION: 1. There is no mass seen at the anus, however there is mild perianal fat induration with no fluid collection. There is also distal rectal wall thickening. Consider proctitis. 2. Indeterminate bilateral adrenal nodules. Follow-up as needed. 3. Additional findings as above. This document has been electronically signed by: Dayna Serrano MD on 01/17/2025 00:22:49
[2025-01-16 19:22] VITALS: BP 126/60; PULSE 64; RESP 20; TEMP 36; O2SAT 95; BMI 22.1
--- NOTE | 2025-01-16 19:23 | ED.GENADULT ---
HPI - General Adult General Chief complaint: General Medical Stated complaint: Mass, hard to poop Time Seen by Provider: 01/16/25 21:11 Source: family Mode of arrival: ambulatory Limitations: other ( dementia) History of Present Illness ED Provider: Dr. Evita Melendez HPI narrative: patient comes to the emergency room accompanied by her daughter. Patient has dementia, states that she feels well and has no complaints. However, the patient's daughter who takes care of her, reports that today they noted that when patient has a bowel movement, a mass protrudes through the anus, looks very red and has pus. Patient denies any pain. According to the patient's daughter, today is the 1st time that they noticed that this happened. Patient does not have any history of rectal prolapse or has rectal abscesses. The family reports that the patient has not had any fever or chills. No blood in the stool Or black stool Related Data Home Medications ?Medication ?Instructions ?Recorded ?Confirmed atorvastatin 10 mg tablet 10 mg PO DAILY 02/25/22 02/15/24 denosumab 60 mg/mL subcutaneous mg subcut 02/25/22 02/15/24 syringe (Prolia) isosorbide mononitrate 30 mg 15 mg PO DAILY 02/25/22 02/15/24 tablet,extended release 24 hr cholecalciferol (vitamin D3) 125 125 mcg PO DAILY 06/08/23 02/15/24 mcg (5,000 unit) capsule (Dialyvite Vitamin D) multivitamin 1 tab PO DAILY 06/08/23 02/15/24 Oxygen Home Use 11/28/23 02/15/24 nebulizers 11/28/23 02/15/24 [id number]-[id number] tablet tab PO 09/05/24 Previous Rx's ?Medication ?Instructions ?Recorded fluticasone 250 mcg-salmeterol 50 1 ea inhalation Q12H 90 days #3 ea 02/08/24 mcg/dose blistr powdr for inhalation (Wixela Inhub) tiotropium bromide 2.5 2 puff inhalation DAILY 90 days 07/31/24 mcg/actuation mist for inhalation #12 grams (Spiriva Respimat) albuterol sulfate 90 mcg/actuation 2 puff PO Q6H PRN for wheezing #72 09/13/24 aerosol inhaler grams levofloxacin 500 mg tablet 500 mg PO DAILY 14 days #14 tabs 11/14/24 azithromycin 250 mg tablet 250 mg PO 3XW 90 days #39 tabs 11/15/24 fluticasone fur. 200 mcg-umeclid 1 inh inhalation DAILY 30 days #60 11/22/24 62.5 mcg-vilant 25 mcg ea inhalat.powder (Trelegy Ellipta) albuterol sulfate 2.5 mg/3 mL 2.5 mg (3 mL) inhalation BID 90 01/02/25 (0.083 %) solution for nebulization days #540 mL Allergies Allergy/AdvReac Type Severity Reaction Status Date / Time No Known Allergies Allergy Verified 01/16/25 19:26 Review of Systems Review of Systems: family reporting a protruding rectal mass with pus. Patient unable to give any significant history due to dementia. Patient denies pain Yes Other ( dementia) [facility] Past Medical History Medical History Tobacco dependence Bronchopneumonia Chronic respiratory failure Pulmonary nodules Vaginal wall prolapse Spinal stenosis Rectocele Pulmonary emphysema Prediabetes Osteoporosis On home oxygen therapy Low back pain HTN (hypertension) Coronary atherosclerosis COPD (chronic obstructive pulmonary disease) Bursitis of hip Aortic valve stenosis Adrenal adenoma Surgical History H/O: hysterectomy H/O mastectomy Family History Family History Mother Breast cancer Social History Social History Alcohol intake: current Alcohol intake frequency: holidays/special occasions only Patient Tobacco Use Status: Current everyday Tobacco user Cigarettes Per Day: 3 Advance Directives: Yes Advance Directives Information Provided: Yes Advance Directives on File: No Physical Exam ED Vital Signs: Vital Signs - 24 hr 01/16/25 19:22 Temperature 96.8 F Pulse Rate 64 Respiratory Rate 20 Blood Pressure 126/60 Pulse Oximetry 95 Oxygen Delivery Method Nasal Cannula BMI result Body Mass Index 22.1 Const Other: Appearance: Alert. Oriented X1. No acute distress. Eyes: Pupils equal, round and reactive to light. ENT: Pharynx normal. Neck: Normal inspection. Neck supple. No lymph nodes noted. No crepitus CVS: Normal heart rate and rhythm. Pulses normal. Normal S1 and S2 Respiratory: No respiratory distress. Breath sounds normal. No Wheezing. No rales Abdomen: Soft and nontender. No rigidity. No distention. the rectal area looks clean, not swollen, no redness, no pus drainage Skin: Skin warm and dry. Normal skin color. Normal skin turgor. Extremities: No lower extremity edema. No Lacerations. No Rash Neuro: Oriented X1. No motor deficit. No sensory deficit. Moving all extremities. No slurred speech. CN 2 through 12 grossly intact Psych: calm, cooperative, normal affect Course Course Course Narrative: This is an RME: Additional HPI, ROS, PE not included below will be deferred to primary provider. RME assessment and note performed by: Cheri Ramirez PA-C This is a 64-gie[age]xgs-female, advanced emphysema COPD and chronic respiratory failure on 4L supplemental O2, HTN, adrenal adenoma, here with daughter, power of assistant district attorney, who presents to the ER with complaints of ?mass at rectum. Reports she had a bowel movement early this morning, but feels like she needs to have another bowel movemenet. Daughter states that patient has a mass at rectum. unable to visualize in triage secondary to limited privacy. Plan: Needs examination. Medications Administered Discontinued Medications Generic Name Dose Route Start Last Admin Trade Name Freq PRN Reason Stop Dose Admin Iohexol 85 ml 01/16/25 22:59 01/16/25 22:59 Iohexol 350 Mg/Ml 100 Ml Infus..Btl IV 01/16/25 23:00 85 ml ONCE ONE Administration Medical Decision Making Medical Decision Making [facility] Narrative: I reviewed patient's medical records, patient has history of vaginal wall prolapse has a pessary and also history of rectocele. Patient's vitals stable no obvious findings on external rectal physical exam unclear if the patient's family saw mucous versus pus? Labs and CT scan pending patient is calm, cooperative, reports no pain Differential Diagnosis Differential Diagnoses: The differential diagnosis associated with the presentation includes ( proctitis, abscess, mass, rectal prolapse) Admission/Observation Consideration of admission/observation: Escalation of care including admission/observation considered ( given patient's age, symptoms, unable to give good history, observation was considered) Lab Data [facility] Lab Attestation statement: I reviewed the patient's lab results. 01/16/25 22:09 01/16/25 22:09 Labs: Lab Results 01/16/25 Range/Units 22:09 WBC 7.0 (4.8-10.8) X10*3/uL RBC 3.74 L (4.20-5.50) X10*6/uL Hgb 12.8 (12.0-16.0) g/dl Hct 37.1 (37.0-47.0) % MCV 99.2 H (80.0-98.0) fL MCH 34.2 H (27.0-33.0) pg MCHC 34.5 (31.0-35.0) g/dl RDW 12.3 (11.0-16.0) % Plt Count 221 (160-400) X10*3/uL MPV 8.7 L (9.4-12.3) fL Immature Gran % (Auto) 0.3 (0.0-0.4) % Neut % (Auto) 66.7 (45-73) % Lymph % (Auto) 18.9 L (20-40) % Cooke % (Auto) 10.1 (2-11) % Eos % (Auto) 3.4 (0-4) % Baso % (Auto) 0.6 (0-2) % Lymph # (Auto) 1.3 (1.2-4.9) X10*3/uL Cooke # (Auto) 0.7 (0.1-1.2) X10*3/uL Eos # (Auto) 0.2 (0.0-0.4) X10*3/uL Baso # (Auto) 0.0 (0.0-0.2) X10*3/uL Abs Immat Gran (auto) 0.02 (0.00-0.03) X10*3/uL Absolute Neuts (auto) 4.7 (2.0-8.3) x10*3/uL Absolute Nucleated RBC 0.000 (0.0-0.012) X10*3/uL Nucleated RBC % (auto) 0.0 (0.0-0.2) /100WBC Sodium 142 (135-145) mmol/L Potassium 4.8 (3.3-5.1) mmol/L Chloride 105 (96-108) mmol/L Carbon Dioxide 30 H (22-29) mmol/L Anion Gap 12 (12-20) BUN 38 H (9-16) mg/dL Creatinine 0.69 (0.5-1.4) mg/dL Estim Creat Clear Calc 46.2 Estimated GFR > 60 Random Glucose 103 (60-115) mg/dL Calcium 9.4 (8.4-10.2) mg/dL Total Bilirubin 0.2 (0.0-1.0) mg/dL Direct Bilirubin < 0.2 (0.0-0.5) mg/dL AST 31 (5-31) U/L ALT 28 (0-31) U/L Alkaline Phosphatase 61 (39-117) U/L Total Protein 6.7 (6.5-8.0) g/dL Albumin 4.1 (3.5-5.0) g/dL Independent Interpretation I performed an independent interpretation of an: CT Scan Radiology Impression Discussion of test interpretation with radiology: I have reviewed the radiologist's reading. Radiologist Impression: 1. There is no mass seen at the anus, however there is mild perianal fat induration with no fluid collection. There is also distal rectal wall thickening. Consider proctitis. 2. Indeterminate bilateral adrenal nodules. Follow-up as needed. 3. Additional findings as above. Critical Care Time Critical Care Time Critical Care Time: Yes Total Critical Care Time: 45 Attestation: I have personally provided critical care time. Time includes review of lab data, radiology results, discussion with consultants, and monitoring for potential decompensation. Intervention performed as documented. Discharge Plan Discharge Clinical Impression: Acute proctitis Patient Disposition: Home, Self-Care Instructions: Proctitis (ED) Additional Instructions: Please follow-up with your primary care physician tomorrow. If you have any worsening or new symptoms, please return to the emergency room or call 911 Prescriptions: No Action fluticasone propion-salmeterol [Wixela Inhub] 250-50 mcg/dose blister with device 1 ea inhalation Q12H 90 Days Qty: 3 3RF Spiriva Respimat 2.5 mcg/actuation mist 2 puff inhalation DAILY 90 Days Qty: 12 3RF albuterol sulfate 90 mcg/actuation HFA aerosol inhaler 2 puff PO Q6H PRN (Reason: for wheezing) Qty: 72 3RF levofloxacin 500 mg tablet 500 mg PO DAILY 14 Days Qty: 14 0RF azithromycin 250 mg tablet 250 mg PO 3XW 90 Days Qty: 39 0RF Rx Instructions: Take 1 tablet on Tuesday/Tuesday/Tuesday albuterol sulfate 2.5 mg /3 mL (0.083 %) solution for nebulization 2.5 mg inhalation BID 90 Days Qty: 540 3RF isosorbide mononitrate 30 mg tablet extended release 24 hr 15 mg PO DAILY Prolia 60 mg/mL syringe subcut atorvastatin 10 mg tablet 10 mg PO DAILY multivitamin Tablet 1 tab PO DAILY cholecalciferol (vitamin D3) [Dialyvite Vitamin D] 125 mcg (5,000 unit) capsule 125 mcg PO DAILY [id number]-paoi Tablet PO (DME) Oxygen Home Use Kit See Rx Instructions .Route Rx Instructions: As directed (DME) nebulizers [facility] See Rx Instructions .Route Rx Instructions: As directed Trelegy Ellipta 200-62.5-25 mcg blister with device 1 inh inhalation DAILY 30 Days Qty: 60 12RF Print Language: Mozambican
--- NOTE | 2025-01-16 21:00 | PC.NURSE ---
Pt alert and oriented, answering questions appropriately. Wears 4L O2 via NC at baseline. O2 sat 97%. No respiratory distress. Caregiver at the bedside reports noticing a bulge with pus and blood coming out of the rectum this morning during rourine care. Pt denies rectal pain, diarrhea, or abd pain. Abd is soft and non tender. Denies urinary symptoms. Pending physician eval.
[2025-01-16 22:18] LABS: MANUAL DIFF FLAG NO
[2025-01-16 22:22] LABS: Hematocrit 37.1 % (37.0-47.0); Hemoglobin 12.8 g/dl (12.0-16.0); Imm Gran Abs Auto 0.02 X10*3/uL (0.00-0.03); Imm Gran Pct Auto 0.3 % (0.0-0.4); Lymphocytes Absolute Auto 1.3 X10*3/uL (1.2-4.9); Mean Corpuscular HGB Conc 34.5 g/dl (31.0-35.0); Mean Corpuscular Hemoglobin 34.2 pg (27.0-33.0); Mean Corpuscular Volume 99.2 fL (80.0-98.0); NRBC Abs Auto 0.000 X10*3/uL (0.0-0.012); NRBC Pct Auto 0.0 /100WBC (0.0-0.2); Platelet Count 221 X10*3/uL (160-400); Red Blood Count 3.74 X10*6/uL (4.20-5.50); White Blood Count 7.0 X10*3/uL (4.8-10.8)
[2025-01-16 22:37] LABS: Alanine Aminotransferase 28 U/L (0-31); Albumin Level 4.1 g/dL (3.5-5.0); Alkaline Phosphatase 61 U/L (39-117); Anion Gap 12 (12-20); Aspartate Amino Transferase 31 U/L (5-31); Blood Urea Nitrogen 38 mg/dL (9-16); Calcium 9.4 mg/dL (8.4-10.2); Carbon Dioxide 30 mmol/L (22-29); Chloride 105 mmol/L (96-108); Creatinine Clr Calc Pharmacy 46.2; Estimated Glomerular Filt Rate > 60; Potassium 4.8 mmol/L (3.3-5.1); Sodium 142 mmol/L (135-145); Total Protein 6.7 g/dL (6.5-8.0)
[2025-01-16] MEDS: iohexoL 350 MG/ML 100 ML INFUS..BTL 85 ML IV (22:59)
[2025-01-17 00:51] VITALS: BP 178/83; PULSE 52; RESP 16; TEMP 36.5; O2SAT 100
[2025-01-17 00:52] VITALS: BP 178/83; PULSE 52; RESP 16; TEMP 36.5; O2SAT 100
== END 2025-01-17 00:53 | disposition home or self-care (01) ==
PROVIDERS: Emergency Provider Emergency Medicine; PCP Nurse Practitioner Gerontology
DX: K62.89 Other specified diseases of anus and rectum (principal); R10.2 Pelvic and perineal pain; K59.00 Constipation, unspecified; F03.90 Unspecified dementia, unspecified severity, without behavioral disturbance, psychotic disturbance, mood disturbance, and anxiety; Z79.899 Other long term (current) drug therapy; F17.210 Nicotine dependence, cigarettes, uncomplicated
CPT/HCPCS: 36415; 74177; 80048; 80076; 85025; 99284; Q9967

== ENCOUNTER → 2025-01-16 22:01 | Outpatient (BNV) | payer MEDICARE, SELFPAY | PROVIDERS: Emergency Provider Emergency Medicine; PCP Nurse Practitioner Gerontology; Visit Provider Radiology Diagnostic Radiology | DX: K62.89 Other specified diseases of anus and rectum (principal) | CPT/HCPCS: 74177 ==

== ENCOUNTER 2025-04-17 11:01 | Outpatient (REF) | payer MEDICARE, SELFPAY | END 2025-04-17 11:02 | disposition home or self-care (01) | LOC: HO.LAB 11:01 | PROVIDERS: PCP Nurse Practitioner Gerontology; Visit Provider Hospitalist | DX: J43.2 Centrilobular emphysema (principal); J96.11 Chronic respiratory failure with hypoxia; J18.0 Bronchopneumonia, unspecified organism; R91.1 Solitary pulmonary nodule; F17.200 Nicotine dependence, unspecified, uncomplicated; T17.500A Unspecified foreign body in bronchus causing asphyxiation, initial encounter; Z99.81 Dependence on supplemental oxygen; Z79.899 Other long term (current) drug therapy | CPT/HCPCS: 87070; 87205; 99212 ==

== ENCOUNTER 2025-04-17 11:01 | Outpatient (AMB) | payer MEDICARE, SELFPAY ==
[2025-04-17 11:16] VITALS: BP 108/50; PULSE 52; O2SAT 89
--- NOTE | 2025-04-17 11:16 | MHC.OFFVIS ---
Vital Signs 04/17/25 11:16 Height 5 ft 2 in BMI Reason not done Patient refused/unable BP 108/50 L Blood Pressure Location Rt brachial Position Sitting Pulse 52 Pulse Source Pulse Oximeter Pulse Oximetry (%) 89 L Oxygen Delivery Method Nasal Cannula Oxygen Flow Rate 2 Intake Visit Reasons: Pulmonary Nodules/Delorme Clearance Last Marker Required: No Allergies No Known Allergies Allergy (Verified 04/17/25 11:20) HPI Comments Details: The patient is an 84 year woman with a known history of advanced emphysema COPD and chronic respiratory failure. She does get oxygen from [employer]. She does have a portable oxygen concentrator that she uses the 4 L pulse with activity. She also sleeps with the oxygen at home at 4 L. the family is wondering if she is using too much oxygen. Will plan to do an overnight oximetry to assess that. In addition to that she does use Wixela and Spiriva with good effect. She still has a cough chest congestion. She has not interested in any additional medications at this time. Because of the chronic bronchitis component I do believe that a Acapella valve will be helpful for chest PT. I did instruct her how to use it and will request 1 from a [employer] company, [employer]. The patient also has multiple pulmonary nodules. 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 She has had CT scans every 6 months. Some of the nodules have been increasing in size. Back in June 2023 she had a PET scan at [facility] and then subsequently repeat CT scan at the [facility]. I did personally review the CT scan. Appears that some of the nodules are spiculated appearance and some of them are larger in size measuring little more than a cm in size. Although she does have extensive emphysema and she does require significant oxygen so therefore any kind of biopsy for the patient will be very high risk and may not be worthwhile. We did talk about following the nodules closely and we can also consider stereotactic radiation if needed. But even that will be difficult. The patient also has a very limited movement of her left shoulder because of a torn rotator coughing that also limits and positioning for any kind of procedures. Apparently she did try to get a biopsy of the pulmonary nodules in the past but she could not position herself because of significant pain from the left shoulder. 05/07/2024 the patient is here for a pulmonary follow-up visit. The patient overall has been doing better. She does complain of a cough productive in nature with yellow sputum. She has been noticing this for the last few weeks. She does not feel sick like she has not had any fevers. Although the daughter has noticed that his energy level has been a little lower. She continues with the inhalers as prescribed. She did get the Acapella valve and she is using it several times a day and that is helping with the expectorations. We did follow-up with a CT scan of the chest that she had at [facility] demonstrating interval worsening of airspace disease in the right upper lobe right middle lobe and right lower lobe area appears to be more consistent with infection. In addition to that she has other pulmonary nodules that are being followed. His hard to know if this airspace disease is related to malignant process or if it is infectious. I do believe it is more infectious at this time. The patient is with her daughter they are concerned about unnecessary antibiotics. I did recommend a course of doxycycline. While we were able to do is get a sputum culture and I will send to the laboratory right now. Hopefully we can get a speciation of an organism. If we can at least identify an organism within treated more effectively. If she worsens then she will call and we can place her on empiric antibiotics specially if the sputum is not helpful. Will plan to repeat an x-ray with the next visit in 3-4 months. 09/05/2024 the patient is here for a pulmonary follow-up visit. She still struggling with a cough. Chest congestion moderate severity. Sometimes difficult to expectorate. She has been using her nebulizer 3 times week followed by the Acapella valve. She does have help from her family since she has had issues with her left arm. She still can set up her nebulizer though. She has a hard time with her inhalers. Her only has Wixela and Spiriva at home that she uses. However, she does need help with those inhalers. We did talk about switching over to Trelegy to make it just once a day get all the medicines at once but right now she has plenty of supplies will wait for her to run out and then order Trelegy. We also talked about other potential medications such as phosphodiesterase 4 inhibitors via nebulizer. In addition to we can start her on azithromycin. 3 times a week. The patient has had a sputum culture with Pseudomonas also Haemophilus and Moraxella. Therefore significant congestion and polymicrobial disease. Unfortunately she continues to smoke cigarettes making her airways more prone to infections and mucus production. The patient does not want to quit. She understands cigarettes are taken away from her quality of life. In the meantime will start her on the azithromycin and will have her come back in about 2-3 months to we can readdress her medication changes. She will have an EKG done then the coming weeks to make sure she is tolerating the azithromycin. 11/22/2024 the patient is here for a pulmonary follow-up visit. She continues to have difficulties with her cough and chest congestion. She has chronic bronchitis with supportive airway disease. Significant bacterial colonization. She had been on the azithromycin 3 times a week but then switch to Levaquin recently for Pseudomonas empiric treatment. She seems to be doing better although still coughing up some phlegm. Her lungs actually sound pretty clear though diminished. Although diminished more on the right than the left. Will have her get an x-ray today. She continues use the oxygen good effect. She continues using nebulized therapy as prescribed. Will go ahead and optimize her treatment by switching over to Trelegy inhaler with the hopes that she can have better adherence and better efficacy. 04/17/2025 the patient is here for hospital follow-up visit. The patient was hospitalized at [facility] back in February for worsening respiratory symptoms. There she was diagnosed with pneumonia. She had a CT scan of the chest which I personally reviewed demonstrating significant pulmonary nodules spiculated in nature largest 1 in the left upper lobe measuring greater than a cm. In addition to that she had bronchopneumonia in the right lower lobe and right middle lobe area along with mucus plugging or airway obstruction of the bronchus intermedius completely. The patient was discharged to rehab. She was placed on a vest because she felt to be too frail to undergo anesthesia and bronchoscopy. She has been tolerating the percussion vest twice a day. She also continues on the azithromycin 3 times a week. Still very significant cough with mucus plugging. We were able to do hypertonic saline with levo albuterol in the office and we were able to send a sputum again to the laboratory. Previously she did grow Pseudomonas Moraxella and Haemophilus. Therefore will go ahead and switch her antibiotics to Levaquin. The patient may also benefit from inhaled tobramycin. Although she does have some underlying bronchiectasis it was not mentioned in the report. She will take the Levaquin for 21 days and repeat the x-ray and have her come back in 4 weeks. We can consider bronchoscopy but indeed she is frail in although the bronchoscopy will help her open up the airways she is not having any significant symptoms right now and it is likely to not fix the issue which is her significant supportive airway disease. Therefore we can consider other alternatives such as hypertonic saline and/or Mucomyst as other options to help her clear the mucus. She continues use the oxygen with good effect. She typically uses 2-4 L to maintain a pulse ox of 90-95%. That is reasonable at this time. She is going to stay at rehabilitation for some time and then she will go back to her daughter's house. If she has any issues she can always call for further recommendations otherwise will follow-up in 4 weeks. [facility] Medical History (Updated 04/17/25 @ 22:35 by Turner Hartman MD) Mucus plugging of bronchi Tobacco dependence Bronchopneumonia Chronic respiratory failure Pulmonary nodules Vaginal wall prolapse Spinal stenosis Rectocele Pulmonary emphysema Prediabetes Osteoporosis On home oxygen therapy Low back pain HTN (hypertension) Coronary atherosclerosis COPD (chronic obstructive pulmonary disease) Bursitis of hip Aortic valve stenosis Adrenal adenoma Surgical History H/O: hysterectomy H/O mastectomy Family History Mother Breast cancer Social History (Updated 04/17/25 @ 11:26 by Tiffanie Miramontes CMA) Alcohol intake: current Alcohol intake frequency: holidays/special occasions only Patient Tobacco Use Status: Former Tobacco user Cigarettes Per Day: 3 Review of Systems Const Denies chills, Denies fatigue, Denies fever(s), Denies weight gain and Denies weight loss ENT Denies dizziness Card Denies chest pain, Denies leg edema, Denies lightheadedness, Denies palpitations, Reports dyspnea on exertion, Denies orthopnea and Denies other Resp Reports chest congestion, Reports cough, Denies hemoptysis, Reports excessive phlegm production, Reports dyspnea on exertion and Reports wheezing GI Denies hematochezia and Denies change in stool character Musc Reports as per HPI, Reports abnormal gait, Reports muscle weakness, Reports numbness, Reports radiating pain into limb and Reports tingling Skin/Breast Denies rash Neuro Reports abnormal gait, Denies dizziness, Reports numbness and Reports tingling Endo Denies fatigue and Denies palpitations Aller/Immun Reports wheezing Physical Exam Vital Signs: Last Vital Signs Pulse 52 04/17/25 11:16 BP 108/50 L 04/17/25 11:16 Pulse Ox 89 L 04/17/25 11:16 Oxygen Delivery Method Nasal Cannula 04/17/25 11:16 Oxygen Flow Rate 2 04/17/25 11:16 Const General: comfortable and alert Nutritional Appearance: thin HEENT Head: Yes normocephalic Neck Neck: Yes supple Chest Chest palpation & inspection: normal inspection of the chest Resp Effort & Inspection: normal respiratory effort and Actively coughing Quality: productive Auscultation: diminished lung sounds Cardio Heart sounds: S1 normal heart sound present, S2 normal heart sound present and Murmur heart sound present GI Palpation (GI): Soft to palpation Skin General skin exam: no rashes or lesions noted Extrem General: Yes no clubbing, cyanosis or edema Assessment & Plan Assessment & Plan (1) COPD (chronic obstructive pulmonary disease): Code(s): J44.9 - Chronic obstructive pulmonary disease, unspecified Category: Medical Qualifiers: COPD type: emphysema Emphysema type: centrilobular Qualified Code(s): J43.2 - Centrilobular emphysema (2) Pulmonary nodules: Code(s): R91.8 - Other nonspecific abnormal finding of lung field Category: Medical (3) Chronic respiratory failure: Code(s): J96.10 - Chronic respiratory failure, unspecified whether with hypoxia or hypercapnia Category: Medical Qualifiers: Respiratory failure complication: hypoxia Qualified Code(s): J96.11 - Chronic respiratory failure with hypoxia (4) Bronchopneumonia: Code(s): J18.0 - Bronchopneumonia, unspecified organism Category: Medical (5) Tobacco dependence: Code(s): F17.200 - Nicotine dependence, unspecified, uncomplicated Category: Medical (6) Mucus plugging of bronchi: Code(s): T17.500A - Unspecified foreign body in bronchus causing asphyxiation, initial encounter Category: Medical Plan continue Trelegy ROSA MARIA as needed stop Azithromycin MWF start Levaquin Sputum Cx Continue CPT with percussion vest and acapella valve conitnue oxygen supplementation: 2L/pulse at rest, 4L/pulse with activity, 4L/min with sleep CXR tobacco cessation Will discuss PET scan if chest congestion/lower respiratory infection is better to address concerning spiculated FRANCISCO JAVIER nodule F/U 3-4 weeks Orders: Orders Sputum Cult + Gram stain Today R91.1 - Solitary pulmonary nodule Coding Level of Care Code Est Pt Level 5 (18753) Complex EM visit Add On G2211 Diagnoses Centrilobular emphysema J43.2 COPD type: emphysema Emphysema type: centrilobular Pulmonary nodules R91.8 Chronic respiratory failure with hypoxia J96.11 Respiratory failure complication: hypoxia Bronchopneumonia J18.0 Tobacco dependence F17.200 Mucus plugging of bronchi T17.500A Time Spent (min) 60
== END 2025-04-17 12:07 | disposition home or self-care (01) ==
LOC: HO.HPS 11:02
PROVIDERS: PCP Nurse Practitioner Gerontology; Visit Provider Hospitalist
DX: J43.2 Centrilobular emphysema (principal); R91.8 Other nonspecific abnormal finding of lung field; J96.11 Chronic respiratory failure with hypoxia; J18.0 Bronchopneumonia, unspecified organism; F17.200 Nicotine dependence, unspecified, uncomplicated; T17.500A Unspecified foreign body in bronchus causing asphyxiation, initial encounter
CPT/HCPCS: 99215; G2211

== ENCOUNTER 2025-05-13 14:16 | Outpatient (REF) | payer MEDICARE, SELFPAY ==
--- NOTE | ~2025-05-13 | XR_ITS ---
EXAMINATION: XR CHEST CLINICAL INFORMATION: J43.2 - Centrilobular emphysema COMPARISON: 11/22/2024. TECHNIQUE: 2 views of the chest were obtained. FINDINGS: The cardiac, hilar, and mediastinal contours are normal. The lungs again demonstrate diffuse prominence of the background interstitial markings, suggestive of underlying COPD. There is increased patchy opacity in the right middle lobe distribution, suggestive of pneumonia. There is no pneumothorax or pleural effusion. There is no focal osseous or soft tissue abnormality. XR/XR chest 2V IMPRESSION: 1. Findings suggestive of COPD. 2. Patchy opacity right middle lobe distribution, suggestive of pneumonia. Recommend radiographic follow-up after treatment to document resolution. Electronically signed by: Bucky Leroy MD 05/13/2025 03:24 PM CORBIN CARTY
== END 2025-05-13 14:17 | disposition home or self-care (01) ==
LOC: HO.XRAY 14:16
PROVIDERS: PCP Nurse Practitioner; Visit Provider Hospitalist
DX: J43.2 Centrilobular emphysema (principal)
CPT/HCPCS: 71046

== ENCOUNTER → 2025-05-13 14:19 | Outpatient (BNV) | payer MEDICARE, SELFPAY | PROVIDERS: PCP Nurse Practitioner; Visit Provider Radiology Diagnostic Radiology | DX: J43.2 Centrilobular emphysema (principal) | CPT/HCPCS: 71046 ==

== ENCOUNTER 2025-05-16 14:36 | Outpatient (AMB) | payer MEDICARE, SELFPAY ==
--- OUTSIDE RECORDS SUMMARY | 2025-03-13 05:30 | XMS_ITS ---
Author Organization [facility] Address [address] [place] [address] Care Team Providers Care Process Safety Management Engineer Name Role Phone Carmita Guajardo Primary Care Provider Unavailabl Bharathi Roberts Unavailable [phone] Encounters Encounter Location Date Provider Diagnosis [facility] [address] [place] [phone] 03/13/2025 Bharathi Craft Plan Of Treatment Next Appt Details Provider Name:Bharathi Craft , 05/22/2025 01:15:00 PM, [address], [phone], Progress Notes * Olya DOUGHERTY ADOB:1940 (84 yo F)Acc No.[id number]:03/13/2025 Progress Notes Patient: Olya DIEZ Provider: Carlos Craft DPM :1940 A ge:84 Y S ex:Female Date:03/13/2025 Address:[address] [place], [place] [id number] Pcp:Carmita Guajardo Subjective: * Chief Complaints: * * Medical History: Objective: * Vitals: Assessment: Plan: * Treatment: * Images: * The named appointment provid er may or may not be the originator of this progress note, and it is not deemed complete until electronically signed by the appointment provider. Sign off status: Pending * Provider: Carlos Craft DPM Date: 0 03/13/2025 Generated for Douglas paredes/Arun/Wilfredo on: 1 07/16/2024 05:50 PM EST
--- NOTE | 2025-05-16 14:47 | A.OFFVIS_ITS ---
Vital Signs 05/16/25 14:48 Height 5 ft 2 in Weight 128 lb 15.527 oz BMI 23.6 BP 100/54 L Blood Pressure Location Rt brachial Position Sitting Pulse 64 Pulse Source Pulse Oximeter Pulse Oximetry (%) 91 L Oxygen Delivery Method Nasal Cannula Oxygen Flow Rate 3 Intake Visit Reasons: Pulmonary Nodules Co Founder Required: No Accompanied by: Other Relationship Allergies No Known Allergies Allergy (Verified 05/16/25 14:53) HPI Comments Details: The patient is an 84 year woman with a known history of advanced emphysema COPD and chronic respiratory failure. She does get oxygen from [email or web address]. She does have a portable oxygen concentrator that she uses the 4 L pulse with activity. She also sleeps with the oxygen at home at 4 L. the family is wondering if she is using too much oxygen. Will plan to do an overnight oximetry to assess that. I n addition to that she does use Wixela and Spiriva with good effect. She still has a cough chest congestion. She has not interested in any additional medications at this time. Because of the chronic bronchitis component I do believe that a Acapella valve will be helpful for chest PT. I did instruct her how to use it and will request 1 from a [employer] company, [email or web address]. The patient also has multiple pulmonary nodules. She has been followed mostly by a nonprofit fundraiser in the area for many years. She has had CT scans every 6 months. Some of the nodules have been increasing in size. Back in June 2023 she had a PET scan at [facility] and then subsequently repeat CT scan at the [facility] center. I did personally review the CT scan. Appears that some of the nodules are spiculated appearance and some of them are larger in size measuring little more than a cm in size. Although she does have extensive emphysema and she does require significant oxygen so therefore any kind of biopsy for the patient will be very high risk and may not be worthwhile. We did talk about following the nodules closely and we can also consider stereotactic radiation if needed. But even that will be difficult. The patient also has a very limited movement of her left shoulder because of a torn rotator coughing that also limits and positioning for any kind of procedures. Apparently she did try to get a biopsy of the pulmonary nodules in the past but she could not position herself because of significant pain from the left shoulder. 05/07/2024 the patient is here for a pulmonary follow-up visit. The patient overall has been doing better. She does complain of a cough productive in nature with yellow sputum. She has been noticing this for the last few weeks. She does not feel sick like she has not had any fevers. Although the daughter has noticed that his energy level has been a little lower. She continues with the inhalers as prescribed. She did get the Acapella valve and she is using it several times a day and that is helping with the expectorations. We did follow- up with a CT scan of the chest that she had at [facility] demonstrating interval worsening of airspace disease in the right upper lobe right middle lobe and right lower lobe area appears to be more consistent with infection. In addition to that she has other pulmonary nodules that are being followed. His hard to know if this airspace disease is related to malignant process or if it is infectious. I do believe it is more infectious at this time. The patient is with her daughter they are concerned about unnecessary antibiotics. I did recommend a course of doxycycline. While we were able to do is get a sputum culture and I will send to the laboratory right now. Hopefully we can get a speciation of an organism. If we can at least identify an organism within treated more effectively. If she worsens then she will call and we can place her on empiric antibiotics specially if the sputum is not helpful. Will plan to repeat an x-ray with the next visit in 3-4 months. 09/05/2024 the patient is here for a pulmonary follow-up visit. She still struggling with a cough. Chest congestion moderate severity. Sometimes difficult to expectorate. She has been using her nebulizer 3 times week followed by the Acapella valve. She does have help from her family since she has had issues with her left arm. She still can set up her nebulizer though. She has a hard time with her inhalers. Her only has Wixela and Spiriva at home that she uses. However, she does need help with those inhalers. We did talk about switching over to Trelegy to make it just once a day get all the medicines at once but right now she has plenty of supplies will wait for her to run out and then order Trelegy. We also talked about other potential medications such as phosphodiesterase 4 inhibitors via nebulizer. In addition to we can start her on azithromycin. 3 times a week. The patient has had a sputum culture with Pseudomonas also Haemophilus and Moraxella. Therefore significant congestion and polymicrobial disease. Unfortunately she continues to smoke cigarettes making her airways more prone to infections and mucus production. The patient does not want to quit. She understands cigarettes are taken away from her quality of life. In the meantime will start her on the azithromycin and will have her come back in about 2-3 months to we can readdress her medication changes. She will have an EKG done then the coming weeks to make sure she is tolerating the azithromycin. 11/22/2024 the patient is here for a pulmonary follow-up visit. She continues to have difficulties with her cough and chest congestion. She has chronic bronchitis with supportive airway disease. Significant bacterial colonization. She had been on the azithromycin 3 times a week but then switch to Levaquin recently for Pseudomonas empiric treatment. She seems to be doing better although still coughing up some phlegm. Her lungs actually sound pretty clear though diminished. Although diminished more on the right than the left. Will have her get an x-ray today. She continues use the oxygen good effect. She continues using nebulized therapy as prescribed. Will go ahead and optimize her treatment by switching over to Trelegy inhaler with the hopes that she can have better adherence and better efficacy. 04/17/2025 the patient is here for hospital follow-up visit. The patient was hospitalized at [facility] back in February for worsening respiratory symptoms. There she was diagnosed with pneumonia. She had a CT scan of the chest which I personally reviewed demonstrating significant pulmonary nodules spiculated in nature largest 1 in the left upper lobe measuring greater than a cm. In addition to that she had bronchopneumonia in the right lower lobe and right middle lobe area along with mucus plugging or airway obstruction of the bronchus intermedius completely. The patient was discharged to rehab. She was placed on a vest because she felt to be too frail to undergo anesthesia and bronchoscopy. She has been tolerating the percussion vest twice a day. She also continues on the azithromycin 3 times a week. Still very significant cough with mucus plugging. We were able to do hypertonic saline with levo albuterol in the office and we were able to send a sputum again to the laboratory. Previously she did grow Pseudomonas Moraxella and Haemophilus. Therefore will go ahead and switch her antibiotics to Levaquin. The patient may also benefit from inhaled tobramycin. Although she does have some underlying bronchiectasis it was not mentioned in the report. She will take the Levaquin for 21 days and repeat the x-ray and have her come back in 4 weeks. We can consider bronchoscopy but inde she is frail in although the bronchoscopy will help her open up the airways she is not having any significant symptoms right now and it is likely to not fix the issue which is her significant supportive airway disease. Therefore we can consider other alternatives such as hypertonic saline and/or Mucomyst as other options to help her clear the mucus. She continues use the oxygen with good effect. She typically uses 2-4 L to maintain a pulse ox of 90-95%. That is reasonable at this time. She is going to stay at rehabilitation for some time and then she will go back to her daughter's house. If she has any issues she can always call for further recommendations otherwise will follow-up in 4 weeks. 05/16/2025 the patient is here for pulmonary follow-up visit. The patient overall has been doing fair. She does have a cough. She did complete the Levaquin antibiotic. Her sputum culture was reassuring which was without any pathogenic organisms just respiratory bacteria. The patient cough is better. She is using the albuterol along with the percussion vest. She is able to cough and expectorate but difficult. She is wondering about DuoNeb. I explained to her the DuoNeb may cause her phlegm to be a little bit thicker so therefore hold off on it. Although we can start her on hypertonic saline with the hope of clearing some mucus and she can use hypertonic saline while using the percussion vest. We can also try to get her Mucomyst in case she still has a hard time with her secretions. But for now since she did not grow any resistant organisms will start her on doxycycline because her x-ray which I personally reviewed demonstrated a new right-sided opacities suggesting pneumonia. Will have her repeat the chest x-ray in about 6 weeks with a follow-up in 6-8 weeks. If any issues arise the patient can always call for further recommendations. [facility] Medical History (Updated 05/16/25 @ 15:20 by Turner Hartman MD) Bronchiectasis Mucus plugging of bronchi Tobacco dependence Bronchopneumonia Chronic respiratory failure Pulmonary nodules Vaginal wall prolapse Spinal stenosis Rectocele Pulmonary emphysema Prediabetes Osteoporosis On home oxygen therapy Low back pain HTN (hypertension) Coronary atherosclerosis COPD (chronic obstructive pulmonary disease) Bursitis of hip Aortic valve stenosis Adrenal adenoma Surgical History H/O: hysterectomy H/O mastectomy Family History Mother Breast cancer Social History Alcohol intake: current Alcohol intake frequency: holidays/special occasions only Patient Tobacco Use Status: Former Tobacco user Cigarettes Per Day: 3 Review of Systems Const Denies chills, Denies fatigue, Denies fever(s), Denies weight gain and Denies weight loss ENT Denies dizziness Card Denies chest pain, Denies leg edema, Denies lightheadedness, Denies palpitati ons, Reports dyspnea on exertion, Denies orthopnea and Denies other Resp Reports chest congestion, Reports cough, Denies hemoptysis, Reports excessive phlegm production, Reports dyspnea on exertion and Reports wheezing GI Denies hematochezia and Denies change in stool character Musc Reports as per HPI, Reports abnormal gait, Reports muscle weakness, Reports numbness, Reports radiating pain into limb and Reports tingling Skin/Breast Denies rash Neuro Reports abnormal gait, Denies dizziness, Reports numbness and Reports tingling Endo Denies fatigue and Denies palpitations Aller/Immun Reports wheezing Physical Exam Vital Signs: Last Vital Signs Pulse 64 05/16/25 14:48 BP 100/54 L 05/16/25 14:48 Pulse Ox 91 L 05/16/25 14:48 Oxygen Delivery Method Nasal Cannula 05/16/25 14:48 Oxygen Flow Rate 3 05/16/25 14:48 BMI result Body Mass Index 23.6 Const General: comfortable and alert Nutritional Appearance: thin HEENT Head: Yes normocephalic Neck Neck: Yes supple Chest Chest palpation & inspection: normal inspection of the chest Resp Effort & Inspection: normal respiratory effort and Actively coughing Quality: productive Auscultation: diminished lung sounds Cardio Heart sounds: S1 normal heart sound present, S2 normal heart sound present and Murmur heart sound present GI Palpation (GI): Soft to palpation Skin General skin exam: no rashes or lesions noted Extrem General: Yes no clubbing, cyanosis or edema Assessment & Plan Assessment & Plan (1) COPD (chronic obstructive pulmonary disease): Code(s): J44.9 - Chronic obstructive pulmonary disease, unspecified Category: Medical Qualifiers: COPD type: emphysema Emphysema type: centrilobular Qualified Code(s): J43.2 - Centrilobular emphysema (2) Pulmonary nodules: Code(s): R91.8 - Other nonspecific abnormal finding of lung field Category: Medical (3) Chronic respiratory failure: Code(s): J96.10 - Chronic respiratory failure, unspecified whether with hypoxia or hypercapnia Category: Medical Qualifiers: Respiratory failure complication: hypoxia Qualified Code(s): J96.11 - Chronic respiratory failure with hypoxia (4) Bronchopneumonia: Code(s): J18.0 - Bronchopneumonia, unspecified organism Category: Medical (5) Tobacco dependence: Code(s): F17.200 - Nicotine dependence, unspecified, uncomplicated Category: Medical (6) Mucus plugging of bronchi: Code(s): T17.500A - Unspecified foreign body in bronchus causing asphyxiation, initial encounter Category: Medical (7) Bronchiectasis: Code(s): J47.9 - Bronchiectasis, uncomplicated Category: Medical Plan continue Trelegy ROSA MARIA as needed stop Azithromycin MWF start Doxicycline Nebulizer: Albuterol TID Hypertonic saline BID Continue CPT with percussion vest while using Hypertonic saline neb conitnue oxygen supplementation: 2L/pulse at rest, 4L/pulse with activity, 4L/min with sleep CXR tobacco cessation Will discuss PET scan if chest congestion/lower respiratory infection is better to address concerning spiculated FRANCISCO JAVIER nodule F/U 6-8 weeks Medications: New doxycycline monohydrate 100 mg PO BID 42 tabs 0RF 21 days sodium chloride 3% 4 mL inhalation BID 240 mL 11RF 30 days J47.9 - Bronchiectasis, uncomplicated doxycycline monohydrate 100 mg PO BID 21 days 42 tabs 0RF Coding Level of Care Code Est Pt Level 5 (61046) Complex EM visit Add On G2211 Diagnoses Centrilobular emphysema J43.2 COPD type: emphysema Emphysema type: centrilobular Pulmonary nodules R91.8 Chronic respiratory failure with hypoxia J96.11 Respiratory failure complication: hypoxia Bronchopneumonia J18.0 Tobacco dependence F17.200 Mucus plugging of bronchi T17.500A Bronchiectasis J47.9 Time Spent (min) 45
[2025-05-16 14:48] VITALS: BP 100/54; PULSE 64; O2SAT 91; BMI 23.6
--- OUTSIDE RECORDS SUMMARY | 2025-05-16 17:50 | XMS_ITS | Patient Health Record ---
Author Organization [facility] Address [address] [place] [address] Care Team Providers Care Rooming House Inspector Name Role Phone RAFAELA WARREN, LAURO Primary Care Provider KYRIE iM Unavailable [phone] Allergies No Known Allergies Reason For Referral No Information Medications Medication SIG (Take, Route, Frequency, Duration) Notes Start Date End Date Status Wixela Inhub 250-50 MCG/ACT Inhalation; Duration: 90 Active Albuterol Sulfate (2.5 MG/3ML) 0.083% Inhalation; Duration: 40 A ctive Multivitamin - 1 tablet Orally Once a day; Duration: 30 day(s) 09/22/2022 Active Prolia 60 MG/ML Subcutaneous; Durati on: 180 Active Spiriva HandiHaler 18MCG Inhalation jake y; Duration: -3 12/05/2013 Active ProAir HFA 108 (90 BASE)MCG/ACT Inhalation; Duration: -3 12/05/2013 Act summer Atorvastatin Calcium 10 MG Oral; Duration: 90 Active Isosorbide Mononitrate ER 30 MG Oral; Duration: 90 Active Calcium Citrate Plus/Magnesium - as directed Orally Activ e Estradiol 2 MG 1 _insert Vaginal on ce for 3 months, then remove and insert a new ring. Repeat every 3 months; Duration: 365 days 05/28/2024 Active Advair Diskus 100-50MCG/DOSE Inhalation; Duration: -12/05/2013 A ctive Tylenol 500 MG/15ML as directed Orally Active [...] Status Risk Notes Problem Postmenopausal atrophic vaginitis (25646998) Postmenopausal atrophic vaginitis (N95.2) Active confirmed Problem Herniation of rectum into vagina (906847834) Rectocele (N81.6) Active confirmed Problem Age-related osteoporosis (713269492) Age-related osteoporosis without current pathological fracture (M81.0) Active confirmed Problem Essential hypertension (04949418) Essential (primary) hypertension (I10) Active confirmed Problem Chronic obstructive pulmonary disease (22683003) Chronic obstructive pulmonary disease, unspecified (J44.9) Active confirmed Problem Cystocele (276685525) Cystocele, unspecified (N81.10) Active confirmed Problem Prolapse of vaginal vault after hysterectomy (31386520) 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) Active confirmed Problem Personal history of primary malignant neoplasm of breast (469754163) Personal history of malignant neoplasm of breast (Z85.3) Active confirmed Vital Signs Temperature 98.0 degrees Fahrenheit 05/28/2024 Blood pressure diastolic 64 mm Hg 05/28/2024 Height 61.5 in 05/28/2024 Blood pressure systolic 114 mm Hg 05/28/2024 Weight 113 lbs 05/28/2024 BMI 21 kg/m2 05/28/2024 Encounters Encounter Location Date Provider Diagnosis [address] [place] [address] 05/28/2024 KYRIE BALLARD Prolapse of vaginal vault [...] Coverage End Date [employer] [address] [place] [address] [id number] MARYLOU DOUGHERTY Self - patient is the [...]
--- OUTSIDE RECORDS SUMMARY | 2025-05-16 17:50 | XMS_ITS | Clinical Summary ---
Author Organization [facility] [address] [place] [address] [place] [phone] Phone Care Team Providers Care Instrument Technician Apprentice Name Role Phone Summer Ramírez MD Primary [...] mouth 1 (one) time each day. Active cholecalcifero l (VITAMIN D-3) 25 mcg (1,000 unit) tablet Take by mouth. Activ e FLUTICASONE PROPION-SALMET KERVIN INHL Inhale 500 Devices into the lungs daily. Active MULTIVITAMIN WITH MINERALS ORAL Take by mouth daily. Active Oxygen Therapy (O2) gas Inhale by mouth. via nasal canula Active tiotropium (SPIRIVA) 18 mcg per inhalation capsule Inhale 18 mcg into the lungs daily. Inhale the contents of one capsule through the Spiriva device every AM Active denosumab (PROLIA) 60 mg/mL syringe syringe Inject 1 mL (60 mg total) under the skin 1 (one) time for 1 dose. 1 mL 03/19/20 25 Active atorvastatin (LIPITOR) 10 mg tablet TAKE 1 TABLET BY MOUTH DAILY 90 tablet 04/22/20 25 Active isosorbide mononitrate (IMDUR) 30 mg 24 hr tablet TAKE ONE-HALF TABLET BY MOUTH DAILY 45 tablet 04/22/20 25 Active atorvastatin (LIPITOR) 10 mg tablet Take 1 tablet (10 mg total) by mouth 1 (one) time each day. 12/21/19 24 025 Discontinued isosorbide mononitrate (IMDUR) 30 mg 24 hr tablet Take 0.5 tablets (15 mg total) by mouth 1 (one) time each day. 08/05/19 23 025 Discontinued Hospital, Clinic, or Other Facility Administered Medication [...] pounds in one week. Carotid artery disease ([facility] V24) 05/04/2021 Overview (04/14/2024): Last Assessment & [...] Encounters Date Type Department Care Team Description 05/10/2025 Lab Requisition [facility] [address] [place] [phone] Jose Martinez MD Weakness; Chronic obstructive pulmonary disease, unspecified (CMS/[facility] V24, CMS/HCC V28); Acute kidney failure, unspecified (CMS/[facility] V24) 05/03/2025 Lab Requisition [facility] [address] [place] [phone] Jose Martinez MD Weakness; Chronic obstructive pulmonary disease, unspecified (CMS/HCC V24, CMS/HCC V28); Acute kidney failure, unspecified ([facility] V24) 04/27/2025 Lab Requisition [facility] [address] [place] [phone] Jose Martinez MD Weakness; Chronic obstructive pulmonary disease, unspecified (CMS/[facility] V24, CMS/HCC V28); Acute kidney failure, unspecified ([facility] V24) 04/22/2025 Telephone Endocrinology - [address] [phone] Avani Gill PA 04/19/2025 Lab Requisition [facility] [address] [place] [phone] Jose Martinez MD Weakness; Chronic obstructive pulmonary disease, unspecified ([facility] V24, [facility] V28); Acute kidney failure, unspecified ([facility] V24) 04/13/2025 Lab Requisition [facility] [address] [place] [phone] Jose Martinez MD Weakness; Chronic obstructive pulmonary disease, unspecified ([facility] V24, [facility] V28); Acute kidney failure, unspecified ([facility] V24) 04/09/2025 Lab Requisition [facility] [address] [place] [phone] Jose Martinez MD Weakness; Acute kidney failure, unspecified ([facility] V24) 03/19/[address] [phone] Indira Luna RN from Last 3 Months Surgical History Surgery [...] tear Rhabdomyolysis DX:Rhabdomyolysi s Acute kidney injury ([facility] V24) DX:Acute kidney injury ([facility]) Adrenal adenoma DX:Adrenal adeno ma Atrophic vaginitis DX:Atrophic v aginitis Bursitis of hip DX:Bursitis of h ip Chronic obstructive lung dis ease ([facility] V24, [facility] V28) DX:Chronic obstructive lung disease (HCC) Dementia ([facility] V24, [facility] V28) DX:Dementia (HCC) 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[facility] V24) DX: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HCC) History of malignant neoplasm of breast DX:History of malignant neoplasm of breast History of malignant neoplas m of uterine body DX:History of malignant neop lasm of uterine body Low back pain DX:Low back pain Nicotine dependence DX:Nicotine dependence Osteoporosis DX:Osteoporosis Poor short term memory DX:Poor s hort term memory Prediabetes DX:Prediabetes Pulmonary emphysema ([facility] V24, [facility] V28) DX:Pulmonary emphysema ([facility]) Pulmonary nodules DX:Pulmonary n odules Rectocele DX:Rectocele Spinal stenosis DX:Spinal stenos is Vaginal wall prolapse DX:Vaginal wall prolapse SONIA (acute kidney injury) ([facility] V24) DX:SONIA (acute kidney injury) ([facility]) Transaminitis DX:Transaminitis Leukocytosis DX:Leukocytosis Lactic acidosis DX:Lactic [...] 58 10/01/2024 11:04 AM EDT Temperature 35.9 C (96.6 F) 10/01/2024 11:04 AM EDT Respiratory Rate - - Oxygen Saturation 93% 10/31/2023 11:37 AM EDT on 3 L Inhaled Oxygen Concentration - - Weight 52.6 kg (116 lb) 05/24/2024 9:24 AM EST Height 154.9 cm (5' 1 ) 05/24/2024 9:24 AM EST Body Mass Index 21.92 05/24/2024 9:24 AM EST Plan of Treatment Upcoming Encounters Date Type Department Care Team (Late st Contact Info) Description 05/20/2025 1:00 PM EST Clinical Support Endocrinology - [place] [address] [place], [place] [phone] 05/20/2025 1:30 PM EST Office Visit Endocrinology - [place] [address] [place], [place] [phone] Avani Gill PA [address] [place], [place] Health Maintenance Due Date Last Done Comments DTaP,Tdap,and Td Vaccines (1 - Tdap) 1957 Zoster Vaccines (1 of 2) 1988 RSV Immunization Adult Patients (1 - 1-dose 75+ series) 2013 Pneumococcal Vaccine: 50+ Years (2 of 2 - PPSV23, PCV20, or PCV21) 05/28/2019 04/02/2019 Cholesterol Screening (Lipid Panel) 06/19/2022 Falls Risk Assessment 06/19/2022 Medicare Annual Wellness Visit 06/19/2022 Social Influencers of Health Screening 06/19/2022 Depression Screening 07/11/2024 COVID-19 Vaccine ( season) 2025 09/18/2020, 08/21/2020 Influenza Vaccine (#1) 2025 3, 04/24/2021, 03/10/2020, Additional history exists Hypertension/CHF/CAD Annual BMP Blood Test 05/06/2026 05/06/2025, 04/29/2025, 04/22/2025, Additional history exists Osteoporosis Screening (Bone Density [...] Procedure Name Priority Date/Time Associated Diagnosis Comments COMPLETE BLOOD COUNT Routine 05/06/2025 5:46 AM EDT Weakness Chronic obstructive pulmonary disease, unspecified (CMS/HCC V24, CMS/HCC V28) Acute kidney failure, unspecified (CMS/HCC V24) BASIC METABOLIC PANEL Routine 05/06/2025 5:46 AM EDT Weakness Chronic obstructive pulmonary disease, unspecified (CMS/HCC V24, CMS/HCC V28) Acute kidney failure, unspecified (CMS/HCC V24) COMPLETE BLOOD COUNT Routine 04/29/2025 6:03 AM EDT Weakness Chronic obstructive pulmonary disease, unspecified (CMS/HCC V24, CMS/HCC V28) Acute kidney failure, unspecified (CMS/HCC V24) BASIC METABOLIC PANEL Routine 04/29/2025 6:03 AM EDT Weakness Chronic obstructive pulmonary disease, unspecified (CMS/HCC V24, CMS/HCC V28) Acute kidney failure, unspecified (CMS/HCC V24) COMPLETE BLOOD COUNT Routine 04/22/2025 5:12 AM EDT Weakness Chronic obstructive pulmonary disease, unspecified (CMS/HCC V24, CMS/HCC V28) Acute kidney failure, unspecified (CMS/HCC V24) BASIC METABOLIC PANEL Routine 04/22/2025 5:12 AM EDT Weakness Chronic obstructive pulmonary disease, unspecified (CMS/HCC V24, CMS/HCC V28) Acute kidney failure, unspecified (CMS/HCC V24) BASIC METABOLIC PANEL Routine 04/15/2025 6:18 AM EDT Weakness Chronic obstructive pulmonary disease, unspecified (CMS/HCC V24, CMS/HCC V28) Acute kidney failure, unspecified (CMS/HCC V24) COMPLETE BLOOD COUNT Routine 04/15/2025 6:18 AM EDT Weakness Chronic obstructive pulmonary disease, unspecified (CMS/HCC V24, CMS/HCC V28) Acute kidney failure, unspecified (CMS/HCC V24) COMPREHENSIVE METABOLIC PANEL Routine 04/09/2025 5:30 AM EDT Weakness Acute kidney failure, unspecified (CMS/HCC V24) COMPLETE BLOOD COUNT Routine 04/09/2025 5:30 AM EDT Weakness Acute kidney failure, unspecified (CMS/HCC V24) DXA BONE DENSITY STUDY 1+ SITS AXIAL SKEL Routine 08/30/2022 11:20 AM EST Age-related osteoporosis without current pathological fracture from Last 3 Months or Most Recently Relevant to Health Maintenance Results * (ABNORMAL) Complete blood count (05/06/2025 5:46 AM EDT) Only the most recent of5 resultswithin the time period is included. WBC 5.0 4.8 - 10.8 K/mcL LAB HEMETOLOGY METHOD 05/06/2025 12:12 PM EDT [facility] RBC 3.50(L) 3.80 - 4.80 M/mcL LAB HEMETOLOGY METHOD 05/06/2025 12:12 PM EDT [facility] Hemoglobin 10.7(L) 11.5 - 16.0 g/dL LAB HEMETOLOGY METHOD 05/06/2025 12:12 PM T [facility] Hematocrit 35.4 35.0 - 47.0 % LAB HEMETOLOGY METHOD 05/06/2025 12:12 PM EDT [facility] MCV 102.6(H) 79.0 - 98.0 FL LAB HEMETOLOGY METHOD 05/06/2025 12:12 PM EDT [facility] MCH 31.0 27.0 - 32.0 pcg LAB HEMETOLOGY METHOD 05/06/2025 12:12 PM EDT [facility] MCHC 30.2(L) 32.0 - 37.0 g/dL LAB HEMETOLOGY METHOD 05/06/2025 12:12 PM EDT [facility] RDW 12.8 11.0 - 15.0 % LAB HEMETOLOGY METHOD 05/06/2025 12:12 PM EDT [facility] Platelets 291 130 - 400 K/mcL LAB HEMETOLOGY METHOD 05/06/2025 12:12 PM EDT [facility] MPV 9.4 7.0 - 11.0 FL LAB HEMETOLOGY METHOD 05/06/2025 12:12 PM EDT [facility] NRBC 0.0 <1.0 % LAB HEMETOLOGY METHOD 05/06/2025 12:12 PM EDT [facility] NRBC Absolute 0.00 <0.10 K/mcL LAB HEMETOLOGY METHOD 05/06/2025 12:12 PM EDT [facility] Blood Venous blood specimen / Unknown Venipuncture / Unknown 05/06/2025 5:46 AM EDT 05/06/2025 11:27 AM EDT us Jose Martinez MD LAB BLOOD ORDERABLES Final Resul t [facility] [address] [place] [address], * (ABNORMAL) Basic metabolic panel (05/06/2025 5:46 AM EDT) Only the most recent of4 resultswithin the time period is included. Sodium 142 133 - 145 mmol/L LAB CHEMISTRY METHOD 05/06/2025 1:20 PM [facility] Potassium 4.3 3.5 - 5.5 mmol/L LAB CHEMISTRY METHOD 05/06/2025 1:20 PM [facility] Chloride 103 96 - 110 mmol/L LAB CHEMISTRY METHOD 05/06/2025 1:20 PM [facility] CO2 34(H) 21 - 32 mmol/L LAB CHEMISTRY METHOD 05/06/2025 1:20 PM [facility] Anion Gap 5 3 - 11 LAB CHEMISTRY METHOD 05/06/2025 1:20 PM [facility] Glucose 77 70 - 100 mg/dL LAB CHEMISTRY METHOD 05/06/2025 1:20 PM [facility] BUN 21 5 - 25 mg/dL LAB CHEMISTRY METHOD 05/06/2025 1:20 PM [facility] Creatinine 0.70 0.50 - 1.10 mg/dL LAB CHEMISTRY METHOD 05/06/2025 1:20 PM [facility] eGFR 84 >=60 mL/min/1. 73m2 LAB CHEMISTRY METHOD 05/06/2025 1:20 PM [facility] Comment:Calculation based on the Chronic Kidney Disease Epidemiology Collaboration (CKD-EPI) equation refit without adjustment for race. BUN/Creatinine Ratio 30.0 LAB CHEMISTRY METHOD 05/06/2025 1:20 PM [facility] Calcium 8.8 8.5 - 10.5 mg/dL LAB CHEMISTRY METHOD 05/06/2025 1:20 PM [facility] Blood Venous blood specimen / Unknown Venipuncture / Unknown 05/06/2025 5:46 AM EDT 05/06/2025 11:27 AM EDT us Jose Martinez MD LAB BLOOD ORDERABLES Final Resul t [facility] [address] [place] [address], * (ABNORMAL) Comprehensive metabolic panel (04/09/2025 5:30 AM EDT) Sodium 136 133 - 145 mmol/L LAB CHEMISTRY METHOD 04/09/2025 10:17 AM T [facility] Potassium 4.4 3.5 - 5.5 mmol/L LAB CHEMISTRY METHOD 04/09/2025 10:17 AM [facility] Chloride 102 96 - 110 mmol/L LAB CHEMISTRY METHOD 04/09/2025 10:17 AM [facility] CO2 30 21 - 32 mmol/L LAB CHEMISTRY METHOD 04/09/2025 10:17 AM [facility] Anion Gap 4 3 - 11 LAB CHEMISTRY METHOD 04/09/2025 10:17 AM [facility] Glucose 82 70 - 100 mg/dL LAB CHEMISTRY METHOD 04/09/2025 10:17 AM [facility] BUN 27(H) 5 - 25 mg/dL LAB CHEMISTRY METHOD 04/09/2025 10:17 AM [facility] Creatinine 0.56 0.50 - 1.10 mg/dL LAB CHEMISTRY METHOD 04/09/2025 10:17 AM [facility] eGFR 89 >=60 mL/min/1. 73m2 LAB CHEMISTRY METHOD 04/09/2025 10:17 AM [facility] Comment:Calculation based on the Chronic Kidney Disease Epidemiology Collaboration (CKD-EPI) equation refit without adjustment for race. BUN/Creatinine Ratio 48.2 LAB CHEMISTRY METHOD 04/09/2025 10:17 AM [facility] Calcium 8.6 8.5 - 10.5 mg/dL LAB CHEMISTRY METHOD 04/09/2025 10:17 AM [facility] AST (SGOT) 20 10 - 42 unit/L LAB CHEMISTRY METHOD 04/09/2025 10:17 AM T [facility] ALT (SGPT) 24 10 - 60 unit/L LAB CHEMISTRY METHOD 04/09/2025 10:17 AM EDT [facility] Alkaline Phosphatase 57 42 - 121 unit/L LAB CHEMISTRY METHOD 04/09/2025 10:17 AM EDT [facility] Total Protein 5.6(L) 6.0 - 8.0 g/dL LAB CHEMISTRY METHOD 04/09/2025 10:17 AM EDT [facility] Albumin 2.9(L) 3.2 - 5.0 g/dL LAB CHEMISTRY METHOD 04/09/2025 10:17 AM T [facility] Total Bilirubin 0.3 0.0 - 1.4 mg/dL LAB CHEMISTRY METHOD 04/09/2025 10:17 AM EDT [facility] Blood Venous blood specimen / Unknown Venipuncture / Unknown 04/09/2025 5:30 AM EDT 04/09/2025 9:12 AM EDT us Jose Martinez MD LAB BLOOD ORDERABLES Final Resul t [facility] [address] [place] [address], * DXA BONE DENSITY STUDY 1+ SITS AXIAL SKEL (08/30/2022 11:20 AM EST) Anatomical Region Laterality Modality Bone Densitometr y 12/17/2021 3:33 PM EDT Narrative 08/30/2022 12:22 PM EST BONE DENSITY (DEXA) Lumbar Spine T-score is 1.4. (SD relative to 20-29 y/o adult) Z-score is 4.2. (SD relative to age matched peers) This is considered normal by WHO criteria. Left Hip T-score is -3.4. Z-score is -1.1. This is considered osteoporosis by WHO criteria. IMPRESSION: Osteoporosis by WHO criteria. [facility] Department of Internal Medicine recommends [...] alternative screening schedule based on alla Jenkins., [facility] July 29, 2011 for patients with [...] criteria. IMPRESSION: Osteoporosis by WHO criteria. [facility] Department of Internal Medicine recommendsusing [...] alternative screening schedule based on alla Jenkins., [facility] for patients with osteopenia (based on hip BMD T-score) is as follows: * advanced osteopenia (T scores -2.00 to -2.49), BMD testing every year * moderate osteopenia (T scores -1.50 to -1.99), BMD testing every 5years mild osteopenia or normal BMD (T scores -1.50 and higher), BMD testingevery 15 years Avani HERRERA IMArchie DXA PROCEDURES Final Result from Last 3 Months or Most Recently Relevant to Health Maintenance [place] [address] [place] [address] [employer] Care Teams Instrument Technician Apprentice Relationship Specialty Start Date End Date Summer Ramírez MD [address] [place] [address] PCP - General 03/01/24
--- OUTSIDE RECORDS SUMMARY | 2025-05-16 17:50 | XMS_ITS | Patient Health Record ---
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 Name Role Phone Carmita Guajardo Primary Care Provider Bharathi Samson Unavailable [phone] Allergies Allergen (clinical drug ingredient) Drug/Non Drug [...] Referring Provider Last Name Desiree [facility] Referred Provider Bharathi Craft Referred Address [address] [facility],[address] ,[place], [place],[address], Referred Provider Specialty Podiatry Referral Priority Routine Medications Medication SIG (Take, Route, Frequency, Duration) Notes Start Date End Date Status Wixela Inhub Active Vitamin D 1000 UNIT 1 tablet Orally Once a day Active ProAir HFA 108 (90 Base) MCG/ACT Inhalation; Duration: 25 Not-Taking Calcium w/ mag, zinc Not-Tc ing Vitamin D3 Not-Takin g Vitamin K2-Vitamin D3 Not-Taking Albuterol Sulfate Ac tive Fish Oil 1000 MG 1 capsule Orally Once a day Not-Taking Erythromycin every other day A ctive aspirin baby Not-Tc ing Advair Diskus 250-50 MCG/DOSE Inhalation; Duration: 90 Active Albuterol Sulfate 108 (90 Base) MCG/ACT 1 puff as needed Inhalation Three times a day Active Memantine HCl Not-Ta serene Atorvastatin Calcium Active Vitamin C Active Estradiol Estrogen Ring Active Vagifem 10 MCG Vaginal; Duration: 84 Not-Taking Calcium & Magnesium Carbonates Active Lisinopril-hydroCHLO ROthiazide 20-12.5 MG Oral; Duration: 90 Not-Takin g Prolia Active Cephalexin 500 MG 1 capsule Orally every 8 hrs; Duration: 10 day(s) Not-Taking levoFLOXacin Active Alendronate Sodium N ot-Taking Isosorbide Mononitrate Active Fluticasone Propionate Active oxygen Active Multivitamin Active Tylenol Active Spiriva HandiHaler 18 MCG Inhalation; Duration: 90 Active Albuterol Not-Taking Lidocaine 5 % 1 application to affected area as needed Externally to effected areas on feet Three times a day; Duration: 30 days 04/04/2019 Not-Taking Immunizations Vaccine Route Administration Date Status Comme nts Influenza Unknown 02/13/2018 Administered Influenza Unknown 04/09/2019 Administered Influenza Unknown 03/13/2024 Administered COVID-19 Moderna Vaccine Unknown 08/21/2020 Administere d COVID-19 Moderna Vaccine Unknown 09/18/2020 Administere d Social History Tobacco Use: Social History Observation [...] W/U Status Risk Notes Problem Plantar wart (58554613) Plantar wart (B07.0) Active confirmed Chronic Problem Bilateral atherosclerosis of arteries of lower limbs (disorder) (03001822967000156 ) Atherosclerosis of [place] artery of both lower extremities, with unspecified presence of clinical manifestation (I70.203) Active confirmed Vital Signs Heart Rate 56 /min 12/17/2024 Blood pressure diastolic 50 mm Hg 12/17/2024 Height 5 ft 1 in in 01/30/2025 Blood pressure systolic 80 mm Hg 12/17/2024 Weight 115 lbs 01/30/2025 BMI 21.73 kg/m2 01/30/2025 Procedures Procedure Date Ordered Date Performed Result Body Sit e 05659-YXNLMPI NAIL, 6 OR MORE 06/25/2024 N/A 52628-Gpid Destruction, 1-14 06/25/2024 N/A 29625-YQDP SKIN LESIONS, OVER 4 06/25/2024 N/A 75900-Rymy Destruction, 1-14 08/09/2024 N/A 30515-PJFIZDP NAIL, 6 OR MORE 09/24/2024 N/A 32538-Hals Destruction, 1-14 09/24/2024 N/A 58107-ODYT SKIN LESIONS, OVER 4 09/24/2024 N/A 22583-Ccqb Destruction, 1-14 11/05/2024 N/A 12503-BXBVCAT NAIL, 6 OR MORE 12/17/2024 N/A 72083-Zula Destruction, 1-14 12/17/2024 N/A 66409-DWZJ SKIN LESIONS, OVER 4 12/17/2024 N/A 90917-Iclu Destruction, 1-14 01/30/2025 N/A Encounters Encounter Location Date Provider Diagnosis [facility] [address] [address] 06/25/2024 Bharathi Craft Atherosclerosis of [place] artery of both lower extremities, with unspecified presence of clinical manifestation I70.203 ; Tinea unguium B35.1 ; Pain in right toe(s) M79.674 ; Pain in left toe(s) M79.675 ; Plantar wart B07.0 and Pain in right foot M79.671 [facility] [address] [address] 08/09/2024 Bharathivijay MagdalenoVenancio Plantar wart B07.0 a nd Pain in right foot M79.671 [facility] [address] [address] 09/24/2024 Bharathi Craft Atherosclerosis of [place] artery of both lower extremities, with unspecified presence of clinical manifestation I70.203 ; Tinea unguium B35.1 ; Pain in right toe(s) M79.674 ; Pain in left toe(s) M79.675 ; Plantar wart B07.0 and Pain in right foot M79.671 [facility] [address] [place] [address] 11/05/2024 Bharathi Craft Plantar wart B07.0 a nd Pain in right foot M79.[address] [address] 12/17/2024 Bharathi Craft Atherosclerosis of [place] artery of both lower extremities, with unspecified presence of clinical manifestation I70.203 ; Tinea unguium B35.1 ; Pain in right toe(s) M79.674 ; Pain in left toe(s) M79.675 ; Plantar wart B07.0 and Pain in right foot M79.671 [facility] [address] [address] 01/30/2025 Bharathi Craft Plantar wart B07.0 a nd Pain in right foot M79.[address] [address] 03/12/2025 Bharathi Craft Assessments Encounter Date Diagnosis (ICD Code) Assessment Notes Treatment Notes Treatment Clinical Notes Section Notes 06/25/2024 Tinea unguium (ICD-10 - B35.1) 06/25/2024 Atherosclerosis of [place] artery of both lower extremities, with unspecified presence of clinical manifestation (ICD-10 - I70.203) 08/09/2024 Pain in right foot (ICD-10 - M79.671) 08/09/2024 Plantar wart (ICD-10 - B07.0) 09/24/2024 Tinea unguium (ICD-10 - B35.1) 09/24/2024 Atherosclerosis of [place] artery of both lower extremities, with unspecified presence of clinical manifestation (ICD-10 - I70.203) 11/05/2024 Pain in right foot (ICD-10 - M79.671) 11/05/2024 Plantar wart (ICD-10 - B07.0) 12/17/2024 Tinea unguium (ICD-10 - B35.1) 12/17/2024 Atherosclerosis of [place] artery of both lower extremities, with unspecified presence of clinical manifestation (ICD-10 - I70.203) 01/30/2025 Pain in right foot (ICD-10 - M79.671) 01/30/2025 Plantar wart (ICD-10 - B07.0) 12/17/2024 Pain in right toe(s) (ICD-10 - M79.674) 09/24/2024 Pain in right toe(s) (ICD-10 - M79.674) 06/25/2024 Pain in right toe(s) (ICD-10 - M79.674) 06/25/2024 Pain in left toe(s) (ICD-10 - M79.675) 09/24/2024 Pain in left toe(s) (ICD-10 - M79.675) 12/17/2024 Pain in left toe(s) (ICD-10 - M79.675) 12/17/2024 Plantar wart (ICD-10 - B07.0) 09/24/2024 Plantar wart (ICD-10 - B07.0) 06/25/2024 Plantar wart (ICD-10 - B07.0) 06/25/2024 Pain in right foot (ICD-10 - M79.671) 09/24/2024 Pain in right foot (ICD-10 - M79.671) 12/17/2024 Pain in right foot (ICD-10 - M79.671) Plan Of Treatment Pending Test Test Name Order Date 30364-EJBBUPE NAIL, 6 OR MORE 02/07/2014 71553-BQNBUVC NAIL, 6 OR MORE 05/09/2014 62259-CRWQEJX NAIL, 6 OR MORE 11/11/2014 07521-KCTRIFZ NAIL, 6 OR MORE 02/10/2015 24173-UBICYNG NAIL, 6 OR MORE 05/12/2015 95035-LBDXXPH NAIL, 6 OR MORE 01/26/2016 35839-MWYNMKX NAIL, 6 OR MORE 04/26/2016 21775-VKPZFOO NAIL, 6 OR MORE 11/04/2016 60869-RAPGWFB NAIL, 6 OR MORE 02/03/2017 47265-NDVAHYT NAIL, 6 OR MORE 05/05/2017 53408-CFOOQPG NAIL, 6 OR MORE 08/04/2017 30685-HRNLRWR NAIL, 6 OR MORE 10/26/2017 49846-KGMSOTK NAIL, 6 OR MORE 01/23/2018 93772-JXQXYSF NAIL, 6 OR MORE 04/24/2018 51555-HSWINRJ NAIL, 6 OR MORE 07/27/2018 99441-QNTNDZM NAIL, 6 OR MORE 10/04/2018 45980-GKSRFIK NAIL, 6 OR MORE 12/14/2018 00243-ODRMUBU NAIL, 6 OR MORE 05/03/2019 59728-PJETRMO NAIL, 6 OR MORE 02/22/2019 45217-CVCOVCJ NAIL, 6 OR MORE 07/23/2019 17586-XUASOUR NAIL, 6 OR MORE 10/03/2019 93532-WIZBURC NAIL, 6 OR MORE 12/12/2019 76896-IJCJIER NAIL, 6 OR MORE 05/09/2020 01598-GKWCLJW NAIL, 6 OR MORE 07/30/2020 10681-TRLVUSF NAIL, 6 OR MORE 10/06/2020 09915-LIKJHPG NAIL, 6 OR MORE 02/14/2020 04597-NBWHWUL NAIL, 6 OR MORE 12/18/2020 50890-REDEOXQ NAIL, 6 OR MORE 02/25/2021 27694-IHANQFE NAIL, 6 OR MORE 05/07/2021 75857-YHJAMFG NAIL, 6 OR MORE 07/16/2021 43434-RYSTDPJ NAIL, 6 OR MORE 09/24/2021 07728-PDACXLB NAIL, 6 OR MORE 01/13/2022 07736-BIHDKCJ NAIL, 6 OR MORE 10/24/2023 17748-CVEWZDH NAIL, 6 OR MORE 12/28/2023 54335-BKIZYSR NAIL, 6 OR MORE 03/26/2024 50240-SGCECPB NAIL, 6 OR MORE 06/25/2024 40095-MIOWXNA NAIL, 6 OR MORE 09/24/2024 70115-BBNFCZN NAIL, 6 OR MORE 12/17/2024 90162-Sgrp Destruction, -14 12/17/2024 75543-Kgig Destruction, -01/30/2025 43203-Xqra Destruction, -09/24/2024 00587-Utdb Destruction, -08/09/2024 15252-Eqxl Destruction, -11/05/2024 69701-Xqjz Destruction, 07-2406/25/2024 32062-Vbxz Destruction, 07-2402/09/2024 41708-Utht Destruction, 07-2405/14/2024 16365-Cnbr Destruction, 07-2403/26/2024 70112-Zyuq Destruction, 07-2404/10/2020 16229-Ifqe Destruction, 07-2410/15/2021 05083-Pdae Destruction, 07-2412/28/2023 59656-Iwxp Destruction, 07-2410/24/2023 84192-Xduc Destruction, 07-2401/13/2022 38705-Blcb Destruction, 07-2409/24/2021 07067-Krnp Destruction, 07-2407/16/2021 48260-Tlzq Destruction, 07-2408/03/2021 40095-Nnvb Destruction, 07-2409/03/2021 43091-Dncy Destruction, 07-2406/10/2021 25756-Ywix Destruction, 07-2406/25/2021 39322-Gknl Destruction, 07-2405/07/2021 12106-Kjmi Destruction, 07-2402/25/2021 25658-Hybz Destruction, 07-2404/02/2021 00768-Blaf Destruction, 07-2412/18/2020 23570-Nkaf Destruction, 07-2401/08/2021 71576-Mofm Destruction, 07-2401/22/2021 98332-Jwkh Destruction, 07-2402/12/2021 79158-Eewe Destruction, 07-2402/14/2020 18909-Nihm Destruction, 07-2410/06/2020 86318-Xlva Destruction, 07-2410/27/2020 58269-Jxmy Destruction, 07-2411/24/2020 95583-Xobc Destruction, 07-2407/30/2020 73683-Wvhz Destruction, 07-2408/20/2020 92267-Wioo Destruction, 07-2409/15/2020 50353-Jabp Destruction, 07-2405/09/2020 47541-Hbyo Destruction, 07-2405/29/2020 41064-Hedr Destruction, 07-2406/23/2020 12582-Ljjq Destruction, 07-2412/12/2019 32801-Kkbg Destruction, 07-2401/02/2020 28810-Ppjj Destruction, 07-2401/16/2020 70958-Mheb Destruction, 07-2410/03/2019 22134-Idjj Destruction, 07-2410/29/2019 97307-Voeb Destruction, 07-2411/21/2019 58888-Czce Destruction, 07-2407/23/2019 67820-Phse Destruction, 07-2408/16/2019 30037-Wavm Destruction, 07-2409/06/2019 97029-Stdq Destruction, 07-2402/22/2019 01326-Yjln Destruction, 07-2404/02/2019 48996-Uhnc Destruction, 07-2407/27/2018 84633-Zqbf Destruction, 07-2406/20/2019 79836-Vfgr Destruction, 07-2405/03/2019 92488-Wsta Destruction, 07-2405/24/2019 28649-Qrsi Destruction, 07-2412/14/2018 30188-Gtvo Destruction, 07-2401/25/2019 96045-Dshw Destruction, 07-2410/04/2018 89407-Zplh Destruction, 07-2411/08/2018 31068-Rbeg Destruction, 07-2408/31/2018 03040-Wqrl Destruction, 07-2401/23/2018 53497-Rzxy Destruction, 07-2404/24/2018 21132-Ijhb Destruction, 07-2405/05/2017 23103-Nyjb Destruction, 1-14 10/26/2017 94018-Iemy Destruction, -14 08/04/2017 34986-Zpsk Destruction, -14 02/03/2017 43884-Gzjt Destruction, -14 05/12/2015 75042-Nimn Destruction, -02/07/2014 09019-Ysld Destruction, -14 02/10/2015 80229-Muzo Destruction, -14 11/11/2014 89606-Viuh Destruction, -05/09/2014 53115-Yjatfekl Plate 11/11/2014 80826-Smqedzmz Plate 02/10/2015 41797-Seuchead Plate 05/12/2015 28929-Twpgyqpy Plate 05/09/2014 06025-Mytkxpkj Plate 01/26/2016 80673-Vrwlflvv Plate 10/26/2017 13206-Wdpfvyjc Plate 01/23/2018 12115-Kcyfbagm Plate 07/27/2018 97767-Krdppetc Plate 06/20/2019 06245-Rhlhbtjb Plate 12/18/2020 36532-Yaiitigs Plate 02/25/2021 65499-Uaqdqcmc Plate 05/07/2021 10672-Lvkdwehx Plate 07/16/2021 84573-Uxmeweky Plate 09/24/2021 76098-Hxbszifp Plate 01/13/2022 00090-Hjljfxtk Plate 10/24/2023 32304-Igpnnufw Plate 12/28/2023 68215-Hiwmrfps Plate Each Additional 12/2021 71524-Hnmyzzuc Plate Each Additional 85680-Tljjzvhv Plate Each Additional 12/2021 37578-Vnljgtdn Plate Each Additional 08981-Modlrheo Plate Each Additional 28581-Kvulpoxh Plate Each Additional 08/2014 19946-Zpjjjeqy Plate Each Additional 57426-Yygoycjk Plate Each Additional 09/2014 09408-Gocfhuwo Plate Each Additional 10/2014 41137- Debride <25 sq cm 11/11/2014 47062- Debride <25 sq cm 05/09/2014 71661- Debride <25 sq cm 02/07/2014 50085- Debride <25 sq cm 02/10/2015 20748- Debride <25 sq cm 02/14/2020 17004-AQXGAVP SKIN/TISSUE 01/23/2020 53046-VYRA SKIN LESIONS, OVER 4 09/25/19 22 08192-LXPB SKIN LESIONS, OVER 4 07/16/19 22 32470-MGWM SKIN LESIONS, OVER 4 01/14/20 22 45315-NEJF SKIN LESIONS, OVER 4 10/24/19 24 45777-FHJP SKIN LESIONS, OVER 4 12/28/19 24 69210-KBFM SKIN LESIONS, OVER 4 03/26/20 24 99288-LIQE SKIN LESIONS, OVER 4 06/25/20 24 08767-BKGK SKIN LESIONS, OVER 4 09/25/19 25 49178-HLNX SKIN LESIONS, OVER 4 12/18/19 98933- Biopsy of skin lesion 05/05/2017 Next Appt Details Provider Name:Bharathi Rain Craft , 05/22/2025 01:15:00 PM, [address] [facility], [address], [place], [address], Insurance Providers Payer Name Payer Address Payer Phone Subscriber Number Group Number Insured Name Patient Relationship to Insured Coverage Start Date Coverage End Date [employer] Preferred [address] [place] [address] [phone] [id number] Olya Hull Self - patient is the insured Medical (General) History Medical History History ICD Code Aortic calcification Arthritis Back pain Cancer Cataracts Chicken pox Cholesterol High blood pressure Lung disease- COPD Measles Osteoporosis KD Surgical History Surgery Date(Month/Year) bilateral mastectomy 2006 arm ear surgery Hospitalization History Reason Date(Month/Year) [facility] [place] rectal prolapse 01/2025 half-way- fell, hurt left arm 12/2021 Nuclear Stress Test- Carotid artery 03/24
--- OUTSIDE RECORDS SUMMARY | 2025-05-16 17:51 | XMS_ITS | Encounter Summary ---
Author Organization [facility] Address [address] [place] [address] Care Team Providers Care Technician Support Association Name Role Phone Summer Ramírez MD Primary Care Provider [phone] Encounter Details Date Type Department Care Team (Late Contact Info) Description 05/10/2025 Lab Requisition [facility] - Main Lab [address] [facility] [place] [address] Jose Martinez MD [address] [place] [address], [phone] Weakness; Chronic obstructive pulmonary disease, unspecified (CMS/HCC V24, CMS/HCC V28); Acute kidney failure, unspecified (CMS/HCC V24) Social History Tobacco Use Types Packs/Day Years [...] as of this encounter Plan of Treatment Upcoming Encounters Date Type Department Care Team (Late Contact Info) Description 05/20/2025 1:00 PM EST Clinical Support Endocrinology - [address] [address] 05/20/2025 1:30 PM EST Office Visit Endocrinology - [address] [phone] Avani Gill PA [address] [place] [address] documented as of this encounter Visit Diagnoses Diagnosis Weakness Other malaise and fatigue Chronic obstructive pulmonary disease, unspecified (CMS/HCC V24, CMS/HCC V28) Acute kidney failure, unspecified ([facility] V24) Acute kidney failure, unspecified documented in this encounter Care Teams Technician Support Association Relationship Specialty Start Date End Date Summer Ramírez MD [address] [place] [address] PCP - General 03/01/24 documented as of this encounter
--- OUTSIDE RECORDS SUMMARY | 2025-05-16 17:51 | XMS_ITS | Encounter Summary ---
Author Organization [facility] Address [address] [place] [address] Care Team Providers Care Lease Picker Name Role Phone Summer Ramírez MD Primary Care Provider + [phone] Encounter Details Date Type Department Care Team (Late Contact Info) Description 04/19/2025 Lab Requisition [facility] - Main Lab [address] [facility] [place] [address] Jose Martinez MD [address] [place] [address], [phone] Weakness; Chronic obstructive pulmonary disease, unspecified [...] 1:00 PM EST Clinical Support Endocrinology - [address] [address] 05/20/2025 1:30 PM EST Office Visit Endocrinology - [address] [phone] Avani Gill PA [address] [place] [address] documented as of this encounter Procedures Procedure Name Priority Date/Time Associated Diagnosis Comments COMPLETE BLOOD COUNT Routine 04/22/2025 5:12 AM EDT Weakness Chronic obstructive pulmonary disease, unspecified (CMS/HCC V24, CMS/HCC V28) Acute kidney failure, unspecified ([facility] V24) BASIC METABOLIC PANEL Routine 04/22/2025 5:12 AM EDT Weakness Chronic obstructive pulmonary disease, unspecified (CMS/HCC V24, CMS/HCC V28) Acute kidney failure, unspecified ([facility] V24) documented in this encounter Results * (ABNORMAL) Complete blood count (04/22/2025 5:12 AM EDT) WBC 7.3 4.8 - 10.8 K/mcL LAB HEMETOLOGY METHOD 04/22/2025 10:15 AM [facility] RBC 3.60(L) 3.80 - 4.80 M/mcL LAB HEMETOLOGY METHOD 04/22/2025 10:15 AM [facility] Hemoglobin 11.6 11.5 - 16.0 g/dL LAB HEMETOLOGY METHOD 04/22/2025 10:15 AM [facility] Hematocrit 36.3 35.0 - 47.0 % LAB HEMETOLOGY METHOD 04/22/2025 10:15 AM [facility] MCV 101.1(H) 79.0 - 98.0 FL LAB HEMETOLOGY METHOD 04/22/2025 10:15 AM [facility] MCH 32.3(H) 27.0 - 32.0 pcg LAB HEMETOLOGY METHOD 04/22/2025 10:15 AM [facility] MCHC 32.0 32.0 - 37.0 g/dL LAB HEMETOLOGY METHOD 04/22/2025 10:15 AM EDT [facility] RDW 12.4 11.0 - 15.0 % LAB HEMETOLOGY METHOD 04/22/2025 10:15 AM EDT [facility] Platelets 274 130 - 400 K/mcL LAB HEMETOLOGY METHOD 04/22/2025 10:15 AM EDT [facility] MPV 9.3 7.0 - 11.0 FL LAB HEMETOLOGY METHOD 04/22/2025 10:15 AM EDT [facility] NRBC 0.0 <1.0 % LAB HEMETOLOGY METHOD 04/22/2025 10:15 AM EDT [facility] NRBC Absolute 0.00 <0.10 K/mcL LAB HEMETOLOGY METHOD 04/22/2025 10:15 AM EDT [facility] Blood Venous blood specimen / Unknown Venipuncture / Unknown 04/22/2025 5:12 AM EDT 04/22/2025 9:42 AM EDT us Jose Martinez MD LAB BLOOD ORDERABLES Final Resul t [facility] [address] [place] [address], * (ABNORMAL) Basic metabolic panel (04/22/2025 5:12 AM EDT) Sodium 139 133 - 145 mmol/L LAB CHEMISTRY METHOD 04/22/2025 10:59 AM EDT [facility] Potassium 4.4 3.5 - 5.5 mmol/L LAB CHEMISTRY METHOD 04/22/2025 10:59 AM EDT [facility] Chloride 100 96 - 110 mmol/L LAB CHEMISTRY METHOD 04/22/2025 10:59 AM EDT [facility] CO2 34(H) 21 - 32 mmol/L LAB CHEMISTRY METHOD 04/22/2025 10:59 AM [facility] Anion Gap 5 3 - 11 LAB CHEMISTRY METHOD 04/22/2025 10:59 AM [facility] Glucose 89 70 - 100 mg/dL LAB CHEMISTRY METHOD 04/22/2025 10:59 AM [facility] BUN 15 5 - 25 mg/dL LAB CHEMISTRY METHOD 04/22/2025 10:59 AM [facility] Creatinine 0.68 0.50 - 1.10 mg/dL LAB CHEMISTRY METHOD 04/22/2025 10:59 AM [facility] eGFR 85 >=60 mL/min/1. 73m2 LAB CHEMISTRY METHOD 04/22/2025 10:59 AM [facility] Comment:Calculation based on the Chronic Kidney Disease Epidemiology Collaboration (CKD-EPI) equation refit without adjustment for race. BUN/Creatinine Ratio 22.1 LAB CHEMISTRY METHOD 04/22/2025 10:59 AM [facility] Calcium 8.7 8.5 - 10.5 mg/dL LAB CHEMISTRY METHOD 04/22/2025 10:59 AM [facility] Blood Venous blood specimen / Unknown Venipuncture / Unknown 04/22/2025 5:12 AM EDT 04/22/2025 9:42 AM EDT us Jose Martinez MD LAB BLOOD ORDERABLES Final Resul t [facility] [address] [place] [address], documented in this encounter Visit Diagnoses Diagnosis Weakness Other malaise and fatigue Chronic obstructive pulmonary disease, unspecified (CMS/HCC V24, CMS/HCC V28) Acute kidney failure, unspecified (CMS/HCC V24) Acute kidney failure, unspecified documented in this encounter Care Teams Lease Picker Relationship Specialty Start Date End Date Summer Ramírez MD [address] [place] [address] PCP - General 03/01/24 documented as of this encounter
--- OUTSIDE RECORDS SUMMARY | 2025-05-16 17:51 | XMS_ITS | Encounter Summary ---
Author Organization [facility] Address [address] [place] [address] Care [address] Shaft And Steering Post Repairer Name Role Phone Summer Ramírez MD Primary Care Provider + [phone] Encounter Details Date Type Department Care Team (Late Contact Info) Description 04/13/2025 Lab Requisition [facility] - Main Lab [address] [facility] [place] [address] Jose Martinez MD [address] [place] [address], [phone] Weakness; Chronic obstructive pulmonary disease, unspecified [...] 1:00 PM EST Clinical Support Endocrinology - [address] [phone] 05/20/2025 1:30 PM EST Office Visit Endocrinology - [address] [phone] Avani Gill PA [address] [place] [address] documented as of this encounter Procedures Procedure Name Priority Date/Time Associated Diagnosis Comments COMPLETE BLOOD COUNT Routine 04/15/2025 6:18 AM EDT Weakness Chronic obstructive pulmonary disease, unspecified (CMS/HCC V24, [facility] V28) Acute kidney failure, unspecified ([facility] V24) BASIC METABOLIC PANEL Routine 04/15/2025 6:18 AM EDT Weakness Chronic obstructive pulmonary disease, unspecified (CMS/HCC V24, [facility] V28) Acute kidney failure, unspecified ([facility] V24) documented in this encounter Results * Basic metabolic panel (04/15/2025 6:18 AM EDT) Sodium 138 133 - 145 mmol/L LAB CHEMISTRY METHOD 04/15/2025 1:59 PM [facility] Potassium 4.3 3.5 - 5.5 mmol/L LAB CHEMISTRY METHOD 04/15/2025 1:59 PM [facility] Chloride 99 96 - 110 mmol/L LAB CHEMISTRY METHOD 04/15/2025 1:59 PM [facility] CO2 32 21 - 32 mmol/L LAB CHEMISTRY METHOD 04/15/2025 1:59 PM [facility] Anion Gap 7 3 - 11 LAB CHEMISTRY METHOD 04/15/2025 1:59 PM [facility] Glucose 76 70 - 100 mg/dL LAB CHEMISTRY METHOD 04/15/2025 1:59 PM [facility] BUN 14 5 - 25 mg/dL LAB CHEMISTRY METHOD 04/15/2025 1:59 PM [facility] Creatinine 0.62 0.50 - 1.10 mg/dL LAB CHEMISTRY METHOD 04/15/2025 1:59 PM EDT [facility] eGFR 87 >=60 mL/min/1. 73m2 LAB CHEMISTRY METHOD 04/15/2025 1:59 PM EDT [facility] Comment:Calculation based on the Chronic Kidney Disease Epidemiology Collaboration (CKD-EPI) equation refit without adjustment for race. BUN/Creatinine Ratio 22.6 LAB CHEMISTRY METHOD 04/15/2025 1:59 PM EDT [facility] Calcium 9.3 8.5 - 10.5 mg/dL LAB CHEMISTRY METHOD 04/15/2025 1:59 PM EDT [facility] Blood Venous blood specimen / Unknown Venipuncture / Unknown 04/15/2025 6:18 AM EDT 04/15/2025 11:30 AM EDT us Jose Martinez MD LAB BLOOD ORDERABLES Final Resul t [facility] [address] [place] [address], [place] [phone] * (ABNORMAL) Complete blood count (04/15/2025 6:18 AM EDT) WBC 5.1 4.8 - 10.8 K/mcL LAB HEMETOLOGY METHOD 04/15/2025 1:03 PM [facility] RBC 3.70(L) 3.80 - 4.80 M/mcL LAB HEMETOLOGY METHOD 04/15/2025 1:03 PM EDT [facility] Hemoglobin 11.8 11.5 - 16.0 g/dL LAB HEMETOLOGY METHOD 04/15/2025 1:03 PM EDT [facility] Hematocrit 37.1 35.0 - 47.0 % LAB HEMETOLOGY METHOD 04/15/2025 1:03 PM [facility] MCV 100.5(H) 79.0 - 98.0 FL LAB HEMETOLOGY METHOD 04/15/2025 1:03 PM EDT [facility] MCH 32.0 27.0 - 32.0 pcg LAB HEMETOLOGY METHOD 04/15/2025 1:03 PM EDT [facility] MCHC 31.8(L) 32.0 - 37.0 g/dL LAB HEMETOLOGY METHOD 04/15/2025 1:03 PM EDT [facility] RDW 12.9 11.0 - 15.0 % LAB HEMETOLOGY METHOD 04/15/2025 1:03 PM EDT [facility] Platelets 360 130 - 400 K/mcL LAB HEMETOLOGY METHOD 04/15/2025 1:03 PM EDT [facility] MPV 9.1 7.0 - 11.0 FL LAB HEMETOLOGY METHOD 04/15/2025 1:03 PM EDT [facility] NRBC 0.0 <1.0 % LAB HEMETOLOGY METHOD 04/15/2025 1:03 PM EDT [facility] NRBC Absolute 0.00 <0.10 K/mcL LAB HEMETOLOGY METHOD 04/15/2025 1:03 PM EDT [facility] Blood Venous blood specimen / Unknown Venipuncture / Unknown 04/15/2025 6:18 AM EDT 04/15/2025 11:30 AM EDT us Jose Martinez MD LAB BLOOD ORDERABLES Final Resul t [facility] [address] [place] [address], documented in this encounter Visit Diagnoses Diagnosis Weakness Other malaise and fatigue Chronic obstructive pulmonary disease, unspecified (CMS/HCC V24, CMS/HCC V28) Acute kidney failure, unspecified (CMS/HCC V24) Acute kidney failure, unspecified documented in this encounter Care Teams Drive Shaft And Steering Post Repairer Relationship Specialty Start Date End Date Summer Ramírez MD [address] [place] [address] PCP - General 03/01/24 documented as of this encounter
--- OUTSIDE RECORDS SUMMARY | 2025-05-16 17:51 | XMS_ITS | Encounter Summary ---
Author Organization [facility] Address [address] [place] [address] Phone Care Team Providers Care Conduit Installer Name Role Phone Summer Ramírez MD Primary Care Provider Encounter Details Date Type Department Care Team (Late st Contact Info) Description 10/07/2020 Orders Only [facility] [address] [place] [address] ProviderMarie MD Social History Tobacco Use Types Packs/Day Years [...] Care Team (Late st Contact Info) Description 01/15/2026 11:30 AM EDT Office Visit [facility] P.CTrent [address] [facility] [address] [place] [address] Deepika Wray ARNP [address] [facility] [address] [place] [address] documented as of this encounter Procedures Procedure Name Priority Date/Time Associated Diagnosis Comments EXT RESULT ENTRY Routine 10/07/2020 documented in this encounter Results * EXT RESULT ENTRY (10/07/2020) us Historical Provider LAB BLOOD ORDERABLES Scarlet l Result documented in this encounter Visit Diagnoses Not on filedocumented in this encounter Care Teams Conduit Installer Relationship Specialty Start Date End Date Summer Ramírez MD [address] [place] [id number] PCP - General Internal Medicine 01/02/25 documented as of this encounter
--- OUTSIDE RECORDS SUMMARY | 2025-05-16 17:51 | XMS_ITS | Clinical Summary ---
Author Organization [facility] Address [address] [place] [address] Phone Care Team Providers Care Sugar Cane Farm Manager Name Role Phone Summer Ramírez MD Primary Care Provider + [phone] Allergies No known active allergies Medications albuterol HFA (PROVENTIL HFA;VENTOLIN HFA) 108 (90 Base) MCG/ACT inhaler 06/27/20 20 Active atorvastatin (LIPITOR) 10 MG tablet 09/23/19 21 Active Prolia 60 MG/ML solution prefilled syringe INJECT 60MG INTO THE SKIN SUBCUTANEOUSLY EVERY 6 MONTHS. 08/28/19 21 Active isosorbide mononitrate (IMDUR) 30 MG 24 hr tablet 09/22/19 21 Active Multiple Vitamin (multivitamin) tablet Take 1 tablet by mouth 1 (one) time each day Active ascorbic acid (VITAMIN C) 500 MG CR capsule Take 1 capsule by mouth 1 (one) time each day Active oxygen (O2) gas Inhale continuously via nasal canula Active Trelegy Ellipta 200-62.5-25 MCG/ACT aerosol powder 01/16/20 25 Active Vitamin D-Vitamin K (VITAMIN K2-VITAMIN D3 PO) Take 5,000 Units by mouth 1 (one) time each day Active Active Problems Problem Noted Date Diagnosed Date Hyperkalemia 01/16/2025 Chronic kidney disease, stage 2 (mild) 5 Adrenal adenoma 11/30/2021 Atherosclerosis of [place] arteries of the extrem ities 11/30/2021 Bursitis [...] Dates Next Due Influenza (IM) Preservative Free 04/09/2019,12/2017 Influenza Vaccine, Quadrivalent, Adjuvanted 02/10 Influenza Whole [...] Sign Reading Time Taken Comments Blood Pressure 120/72 01/16/2025 11:58 AM EDT Pulse 57 01/16/2025 11:58 AM EDT Temperature - - Respiratory Rate - - Oxygen Saturation 92% 01/16/2025 11:58 AM EDT Inhaled Oxygen Concentration - - Weight 55.2 kg (121 lb 9.6 oz) 01/16/2025 11:58 AM EDT Height 162.6 cm (5' 4 ) 03/30/2022 1:44 PM EDT Body Mass Index 20.87 03/30/2022 1:44 PM EDT Plan of Treatment Upcoming Encounters Date Type Department Care Team (Late st Contact Info) Description 01/15/2026 11:30 AM EDT Office Visit [facility] PTrentCTrent [address] [address] Deepika Wray ARNP [address] [address] Health Maintenance Due Date Last Done Comments Pneumococcal Vaccine: 50+ Years (2 of 2 - PPSV23, PCV20, or PCV21) 05/28/2019 04/02/2019 Influenza Vaccine (#1) 2025 0, 03/10/2020, 04/09/2019, Additional history exists Pneumococcal Vaccine: Peds (0 to 5 Years) and At-Risk Patients (6 to 49 Years) Discontinued 04/02/2019 Hepatitis B Vaccine Aged Out No longe r eligible based on patient's age to complete this topic Insurance [employer] Medicare [employer] Care Teams Sugar Cane Farm Manager Relationship Specialty Start Date End Date Summer Ramírez MD [address] [place] [id number] PCP - General Internal Medicine 01/02/25
--- OUTSIDE RECORDS SUMMARY | 2025-05-16 17:51 | XMS_ITS | Encounter Summary ---
Author Organization [facility] Address [address] [place] [address] Care Team Providers Care Basketball Assembler Name Role Phone Summer Ramírez MD Primary Care Provider + [phone] Reason for Visit * Reason Onset Date Comments prolia call back 04/22/2025 Encounter Details Date Type Department Care Team (Late st Contact Info) Description 04/22/2025 Telephone Endocrinology - [place] [address] [place] [address] Avani Gill PA [address] [place] [address] Social History Tobacco Use Types Packs/Day Years [...] as of this encounter Progress Notes * Indira Luna RN - 04/24/2025 9:45 AM EDT Called and spoke with Korina Appt with Avani switched to 05/20, will receive Prolia on that day Will fax labs to [facility] [phone] * Zulma Berry - 04/22/2025 3:06 PM EDT Patient's daughter Korina is asking if she can have labs drawn at [facility] [place] [address] Korina can be reached at [phone] * Indira Luna RN - 04/22/2025 11:58 AM EDT Called [facility], prolia will be delivered tomorrow 04/23 Called Korina - daughter - pt needs labs draw first Pt is in short term rehab, has an appt with Avani on 05/06- she will get labs drawn that day and set up injection date later. * Mikaela Strickland - 04/22/2025 10:23 AM EDT Endocrine Call Primary endocrine provider: Avani Gill PA-C Is the endocrine provider in the office toady?: yes Who is calling? Other: Name of caller: Korina Relationship to patient: daughter. If not the patient or parent/guardian please check for authorization to share/verbal release. Why is the person calling? Calls regarding Prolia or recast orders, status on medication, appointments. Please forward to endocrine nurse pool (p [phone]). Pt's daughter is calling regarding her Mother's 05/06 appointment for Prolia. She's asking for a call back after 12pm today please documented in this encounter Plan of Treatment Upcoming Encounters Date Type Department Care Team (Late st Contact Info) Description 05/20/2025 1:00 PM EST Clinical Support Endocrinology - [address] [phone] 05/20/2025 1:30 PM EST Office Visit Endocrinology - [address] [phone] Avani Gill PA [address] [place] [address] documented as of this encounter Visit Diagnoses Not on filedocumented in this encounter Care Teams Basketball Assembler Relationship Specialty Start Date End Date Summer Ramírez MD [address] [place] [address] PCP - General 03/01/24 documented as of this encounter
--- OUTSIDE RECORDS SUMMARY | 2025-05-16 17:51 | XMS_ITS | Encounter Summary ---
Author Organization [facility] Address [address] [place] [address] Care Team Providers Care Regional Medical Director Name Role Phone Summer Ramírez MD Primary Care Provider [phone] Encounter Details Date Type Department Care Team (Late Contact Info) Description 04/27/2025 Lab Requisition [facility] - Main Lab [address] [facility] [place] [address] Jose Martinez MD [address] [place] [address], [phone] Weakness; Chronic obstructive pulmonary disease, unspecified [...] 1:00 PM EST Clinical Support Endocrinology - [address] [phone] 05/20/2025 1:30 PM EST Office Visit Endocrinology - [address] [phone] Avani Gill PA [address] [place], [place] documented as of this encounter Procedures Procedure Name Priority Date/Time Associated Diagnosis Comments COMPLETE BLOOD COUNT Routine 04/29/2025 6:03 AM EDT Weakness Chronic obstructive pulmonary disease, unspecified (CMS/HCC V24, CMS/HCC V28) Acute kidney failure, unspecified ([facility] V24) BASIC METABOLIC PANEL Routine 04/29/2025 6:03 AM EDT Weakness Chronic obstructive pulmonary disease, unspecified (CMS/HCC V24, CMS/HCC V28) Acute kidney failure, unspecified ([facility] V24) documented in this encounter Results * (ABNORMAL) Complete blood count (04/29/2025 6:03 AM EDT) WBC 5.5 4.8 - 10.8 K/mcL LAB HEMETOLOGY METHOD 04/29/2025 12:28 PM [facility] RBC 3.40(L) 3.80 - 4.80 M/mcL LAB HEMETOLOGY METHOD 04/29/2025 12:28 PM [facility] Hemoglobin 10.6(L) 11.5 - 16.0 g/dL LAB HEMETOLOGY METHOD 04/29/2025 12:28 PM [facility] Hematocrit 35.3 35.0 - 47.0 % LAB HEMETOLOGY METHOD 04/29/2025 12:28 PM [facility] MCV 103.5(H) 79.0 - 98.0 FL LAB HEMETOLOGY METHOD 04/29/2025 12:28 PM [facility] MCH 31.1 27.0 - 32.0 pcg LAB HEMETOLOGY METHOD 04/29/2025 12:28 PM [facility] MCHC 30.0(L) 32.0 - 37.0 g/dL LAB HEMETOLOGY METHOD 04/29/2025 12:28 PM EDT [facility] RDW 12.6 11.0 - 15.0 % LAB HEMETOLOGY METHOD 04/29/2025 12:28 PM EDT [facility] Platelets 244 130 - 400 K/mcL LAB HEMETOLOGY METHOD 04/29/2025 12:28 PM EDT [facility] MPV 9.2 7.0 - 11.0 FL LAB HEMETOLOGY METHOD 04/29/2025 12:28 PM EDT [facility] NRBC 0.0 <1.0 % LAB HEMETOLOGY METHOD 04/29/2025 12:28 PM EDT [facility] NRBC Absolute 0.00 <0.10 K/mcL LAB HEMETOLOGY METHOD 04/29/2025 12:28 PM EDT [facility] Blood Venous blood specimen / Unknown Venipuncture / Unknown 04/29/2025 6:03 AM EDT 04/29/2025 11:20 AM EDT us Jose Martinez MD LAB BLOOD ORDERABLES Final Resul t [facility] [address] [place] [address], * (ABNORMAL) Basic metabolic panel (04/29/2025 6:03 AM EDT) Sodium 142 133 - 145 mmol/L LAB CHEMISTRY METHOD 04/29/2025 1:41 PM EDT [facility] Potassium 4.0 3.5 - 5.5 mmol/L LAB CHEMISTRY METHOD 04/29/2025 1:41 PM EDT [facility] Chloride 104 96 - 110 mmol/L LAB CHEMISTRY METHOD 04/29/2025 1:41 PM EDT [facility] CO2 36(H) 21 - 32 mmol/L LAB CHEMISTRY METHOD 04/29/2025 1:41 PM EDT [facility] Anion Gap 2(L) 3 - 11 LAB CHEMISTRY METHOD 04/29/2025 1:41 PM T [facility] Glucose 65(L) 70 - 100 mg/dL LAB CHEMISTRY METHOD 04/29/2025 1:41 PM T [facility] BUN 23 5 - 25 mg/dL LAB CHEMISTRY METHOD 04/29/2025 1:41 PM EDT [facility] Creatinine 0.60 0.50 - 1.10 mg/dL LAB CHEMISTRY METHOD 04/29/2025 1:41 PM T [facility] eGFR 88 >=60 mL/min/1. 73m2 LAB CHEMISTRY METHOD 04/29/2025 1:41 PM T [facility] Comment:Calculation based on the Chronic Kidney Disease Epidemiology Collaboration (CKD-EPI) equation refit without adjustment for race. BUN/Creatinine Ratio 38.3 LAB CHEMISTRY METHOD 04/29/2025 1:41 PM [facility] Calcium 8.8 8.5 - 10.5 mg/dL LAB CHEMISTRY METHOD 04/29/2025 1:41 PM [facility] Blood Venous blood specimen / Unknown Venipuncture / Unknown 04/29/2025 6:03 AM EDT 04/29/2025 11:20 AM EDT us Jose Martinez MD LAB BLOOD ORDERABLES Final Resul t [facility] [address] [place] [address], documented in this encounter Visit Diagnoses Diagnosis Weakness Other malaise and fatigue Chronic obstructive pulmonary disease, unspecified (CMS/HCC V24, CMS/HCC V28) Acute kidney failure, unspecified (CMS/HCC V24) Acute kidney failure, unspecified documented in this encounter Care Teams Regional Medical Director Relationship Specialty Start Date End Date Summer Ramírez MD [address] [place] [address] PCP - General 03/01/24 documented as of this encounter
--- OUTSIDE RECORDS SUMMARY | 2025-05-16 17:51 | XMS_ITS | Encounter Summary ---
Author Organization [facility] Address [address] [place] [address] Care Team Providers Care Machine Bookkeeper Name Role Phone Summer Ramírez MD Primary Care Provider Encounter Details Date Type Department Care Team (Late st Contact Info) Description 04/09/2025 Lab Requisition [facility] - Main Lab [address] [facility] [place] [address] Jose Matrinez MD [address] [place] [address], [phone] Weakness; Acute kidney failure, unspecified (CMS/HCC V24) Social [...] 1:00 PM EST Clinical Support Endocrinology - [address] [phone] 05/20/2025 1:30 PM EST Office Visit Endocrinology - [address] [phone] Avani Gill PA [address] [place] [address] documented as of this encounter Procedures Procedure Name Priority Date/Time Associated Diagnosis Comments COMPLETE BLOOD COUNT Routine 04/09/2025 5:30 AM EDT Weakness Acute kidney failure, unspecified ([facility] V24) COMPREHENSIVE METABOLIC PANEL Routine 04/09/2025 5:30 AM EDT Weakness Acute kidney failure, unspecified ([facility] V24) documented in this encounter Results * (ABNORMAL) Comprehensive metabolic panel (04/09/2025 5:30 AM EDT) Sodium 136 133 - 145 mmol/L LAB CHEMISTRY METHOD 04/09/2025 10:17 AM [facility] Potassium 4.4 3.5 - 5.5 mmol/L LAB CHEMISTRY METHOD 04/09/2025 10:17 AM [facility] Chloride 102 96 - 110 mmol/L LAB CHEMISTRY METHOD 04/09/2025 10:17 AM [facility] CO2 30 21 - 32 mmol/L LAB CHEMISTRY METHOD 04/09/2025 10:17 AM [facility] Anion Gap 4 3 - 11 LAB CHEMISTRY METHOD 04/09/2025 10:17 AM [facility] Glucose 82 70 - 100 mg/dL LAB CHEMISTRY METHOD 04/09/2025 10:17 AM [facility] BUN 27(H) 5 - 25 mg/dL LAB CHEMISTRY METHOD 04/09/2025 10:17 AM [facility] Creatinine 0.56 0.50 - 1.10 mg/dL LAB CHEMISTRY METHOD 04/09/2025 10:17 AM [facility] eGFR 89 >=60 mL/min/1. 73m2 LAB CHEMISTRY METHOD 04/09/2025 10:17 AM [facility] Comment:Calculation based on the Chronic Kidney Disease Epidemiology Collaboration (CKD-EPI) equation refit without adjustment for race. BUN/Creatinine Ratio 48.2 LAB CHEMISTRY METHOD 04/09/2025 10:17 AM [facility] Calcium 8.6 8.5 - 10.5 mg/dL LAB CHEMISTRY METHOD 04/09/2025 10:17 AM [facility] AST (SGOT) 20 10 - 42 unit/L LAB CHEMISTRY METHOD 04/09/2025 10:17 AM [facility] ALT (SGPT) 24 10 - 60 unit/L LAB CHEMISTRY METHOD 04/09/2025 10:17 AM [facility] Alkaline Phosphatase 57 42 - 121 unit/L LAB CHEMISTRY METHOD 04/09/2025 10:17 AM [facility] Total Protein 5.6(L) 6.0 - 8.0 g/dL LAB CHEMISTRY METHOD 04/09/2025 10:17 AM [facility] Albumin 2.9(L) 3.2 - 5.0 g/dL LAB CHEMISTRY METHOD 04/09/2025 10:17 AM [facility] Total Bilirubin 0.3 0.0 - 1.4 mg/dL LAB CHEMISTRY METHOD 04/09/2025 10:17 AM [facility] Blood Venous blood specimen / Unknown Venipuncture / Unknown 04/09/2025 5:30 AM EDT 04/09/2025 9:12 AM EDT us Jose Martinez MD LAB BLOOD ORDERABLES Final Resul t [facility] [address] [place] [address], * (ABNORMAL) Complete blood count (04/09/2025 5:30 AM EDT) WBC 4.0(L) 4.8 - 10.8 K/mcL LAB HEMETOLOGY METHOD 04/09/2025 9:43 AM [facility] RBC 3.40(L) 3.80 - 4.80 M/mcL LAB HEMETOLOGY METHOD 04/09/2025 9:43 AM [facility] Hemoglobin 11.1(L) 11.5 - 16.0 g/dL LAB HEMETOLOGY METHOD 04/09/2025 9:43 AM [facility] Hematocrit 35.5 35.0 - 47.0 % LAB HEMETOLOGY METHOD 04/09/2025 9:43 AM [facility] MCV 103.5(H) 79.0 - 98.0 FL LAB HEMETOLOGY METHOD 04/09/2025 9:43 AM [facility] MCH 32.4(H) 27.0 - 32.0 pcg LAB HEMETOLOGY METHOD 04/09/2025 9:43 AM [facility] MCHC 31.3(L) 32.0 - 37.0 g/dL LAB HEMETOLOGY METHOD 04/09/2025 9:43 AM [facility] RDW 13.1 11.0 - 15.0 % LAB HEMETOLOGY METHOD 04/09/2025 9:43 AM [facility] Platelets 319 130 - 400 K/mcL LAB HEMETOLOGY METHOD 04/09/2025 9:43 AM [facility] MPV 9.9 7.0 - 11.0 FL LAB HEMETOLOGY METHOD 04/09/2025 9:43 AM [facility] NRBC 0.0 <1.0 % LAB HEMETOLOGY METHOD 04/09/2025 9:43 AM [facility] NRBC Absolute 0.00 <0.10 K/mcL LAB HEMETOLOGY METHOD 04/09/2025 9:43 AM [facility] Blood Venous blood specimen / Unknown Venipuncture / Unknown 04/09/2025 5:30 AM EDT 04/09/2025 9:12 AM EDT us Jose Martinez MD LAB BLOOD ORDERABLES Final Resul t [facility] [address] [place] [address], documented in this encounter Visit Diagnoses Diagnosis Weakness Other malaise and fatigue Acute kidney failure, unspecified (CMS/HCC V24) Acute kidney failure, unspecified documented in this encounter Care Teams Machine Bookkeeper Relationship Specialty Start Date End Date Summer Ramírez MD [address] [place] [address] PCP - General 03/01/24 documented as of this encounter
--- OUTSIDE RECORDS SUMMARY | 2025-05-16 17:51 | XMS_ITS | Encounter Summary ---
Author Organization [facility] Address [address] [place] [address] Care Team Providers Care Scarf And Anneal Operator Name Role Phone Summer Ramírez MD Primary Care Provider [phone] Encounter Details Date Type Department Care Team (Late Contact Info) Description 05/03/2025 Lab Requisition [facility] - Main Lab [address] [facility] [place] [address] Jose Martinez MD [address] [place] [address], [phone] Weakness; Chronic obstructive pulmonary disease, unspecified [...] 1:00 PM EST Clinical Support Endocrinology - [address] [phone] 05/20/2025 1:30 PM EST Office Visit Endocrinology - [address] [phone] Avani Gill PA [address] [place] [address] documented as of this encounter Procedures Procedure Name Priority Date/Time Associated Diagnosis Comments COMPLETE BLOOD COUNT Routine 05/06/2025 5:46 AM EDT Weakness Chronic obstructive pulmonary disease, unspecified (CMS/HCC V24, CMS/HCC V28) Acute kidney failure, unspecified ([facility]/HCC V24) BASIC METABOLIC PANEL Routine 05/06/2025 5:46 AM EDT Weakness Chronic obstructive pulmonary disease, unspecified (CMS/HCC V24, CMS/HCC V28) Acute kidney failure, unspecified ([facility]/HCC V24) documented in this encounter Results * (ABNORMAL) Complete blood count (05/06/2025 5:46 AM EDT) WBC 5.0 4.8 - 10.8 K/mcL LAB HEMETOLOGY METHOD 05/06/2025 12:12 PM [facility] RBC 3.50(L) 3.80 - 4.80 M/mcL LAB HEMETOLOGY METHOD 05/06/2025 12:12 PM [facility] Hemoglobin 10.7(L) 11.5 - 16.0 g/dL LAB HEMETOLOGY METHOD 05/06/2025 12:12 PM [facility] Hematocrit 35.4 35.0 - 47.0 % LAB HEMETOLOGY METHOD 05/06/2025 12:12 PM [facility] MCV 102.6(H) 79.0 - 98.0 FL LAB HEMETOLOGY METHOD 05/06/2025 12:12 PM [facility] MCH 31.0 27.0 - 32.0 pcg LAB HEMETOLOGY METHOD 05/06/2025 12:12 PM [facility] MCHC 30.2(L) 32.0 - 37.0 g/dL LAB HEMETOLOGY METHOD 05/06/2025 12:12 PM EDT [facility] RDW 12.8 11.0 - 15.0 % LAB HEMETOLOGY METHOD 05/06/2025 12:12 PM EDT [facility] Platelets 291 130 - 400 K/mcL LAB HEMETOLOGY METHOD 05/06/2025 12:12 PM EDT [facility] MPV 9.4 7.0 - 11.0 FL LAB HEMETOLOGY METHOD 05/06/2025 12:12 PM EDT [facility] NRBC 0.0 <1.0 % LAB HEMETOLOGY METHOD 05/06/2025 12:12 PM EDT [facility] NRBC Absolute 0.00 <0.10 K/mcL LAB HEMETOLOGY METHOD 05/06/2025 12:12 PM EDT [facility] Blood Venous blood specimen / Unknown Venipuncture / Unknown 05/06/2025 5:46 AM EDT 05/06/2025 11:27 AM EDT us Jose Martinez MD LAB BLOOD ORDERABLES Final Resul t [facility] [address] [place] [address], * (ABNORMAL) Basic metabolic panel (05/06/2025 5:46 AM EDT) Sodium 142 133 - 145 mmol/L LAB CHEMISTRY METHOD 05/06/2025 1:20 PM EDT [facility] Potassium 4.3 3.5 - 5.5 mmol/L LAB CHEMISTRY METHOD 05/06/2025 1:20 PM EDT [facility] Chloride 103 96 - 110 mmol/L LAB CHEMISTRY METHOD 05/06/2025 1:20 PM EDT [facility] CO2 34(H) 21 - 32 mmol/L LAB CHEMISTRY METHOD 05/06/2025 1:20 PM EDT [facility] Anion Gap 5 3 - 11 LAB CHEMISTRY METHOD 05/06/2025 1:20 PM EDT [facility] Glucose 77 70 - 100 mg/dL LAB CHEMISTRY METHOD 05/06/2025 1:20 PM EDT [facility] BUN 21 5 - 25 mg/dL LAB CHEMISTRY METHOD 05/06/2025 1:20 PM EDT [facility] Creatinine 0.70 0.50 - 1.10 mg/dL LAB CHEMISTRY METHOD 05/06/2025 1:20 PM EDT [facility] eGFR 84 >=60 mL/min/1. 73m2 LAB CHEMISTRY METHOD 05/06/2025 1:20 PM EDT [facility] Comment:Calculation based on the Chronic Kidney Disease Epidemiology Collaboration (CKD-EPI) equation refit without adjustment for race. BUN/Creatinine Ratio 30.0 LAB CHEMISTRY METHOD 05/06/2025 1:20 PM EDT [facility] Calcium 8.8 8.5 - 10.5 mg/dL LAB CHEMISTRY METHOD 05/06/2025 1:20 PM T [facility] Blood Venous blood specimen / Unknown Venipuncture / Unknown 05/06/2025 5:46 AM EDT 05/06/2025 11:27 AM EDT us Jose Martinez MD LAB BLOOD ORDERABLES Final Resul t [facility] [address] [place] [address], documented in this encounter Visit Diagnoses Diagnosis Weakness Other malaise and fatigue Chronic obstructive pulmonary disease, unspecified (CMS/HCC V24, CMS/HCC V28) Acute kidney failure, unspecified (CMS/HCC V24) Acute kidney failure, unspecified documented in this encounter Care Teams Scarf And Anneal Operator Relationship Specialty Start Date End Date Summer Ramírez MD [address] [place] [address] PCP - General 03/01/24 documented as of this encounter
== END 2025-05-16 15:25 | disposition home or self-care (01) ==
LOC: HO.HPS 14:36
PROVIDERS: PCP Nurse Practitioner Gerontology; Visit Provider Hospitalist
DX: J43.2 Centrilobular emphysema (principal); R91.8 Other nonspecific abnormal finding of lung field; J96.11 Chronic respiratory failure with hypoxia; J18.0 Bronchopneumonia, unspecified organism; F17.200 Nicotine dependence, unspecified, uncomplicated; T17.500A Unspecified foreign body in bronchus causing asphyxiation, initial encounter; J47.9 Bronchiectasis, uncomplicated
CPT/HCPCS: 99215; G2211

== ENCOUNTER → 2025-05-16 14:36 | Outpatient (BNVA) | payer MEDICARE, SELFPAY | PROVIDERS: PCP Nurse Practitioner Gerontology; Visit Provider Hospitalist | DX: J43.2 Centrilobular emphysema (principal); J18.0 Bronchopneumonia, unspecified organism; R91.8 Other nonspecific abnormal finding of lung field; J96.11 Chronic respiratory failure with hypoxia; F17.200 Nicotine dependence, unspecified, uncomplicated; J47.9 Bronchiectasis, uncomplicated; Z99.81 Dependence on supplemental oxygen | CPT/HCPCS: 99212 ==